=== PATIENT | female | born 1940 | race Caucasian/White ===

== ENCOUNTER 2017-03-21 20:23 | Inpatient (IN) ==
[2017-03-21] MEDS ORDERED: DUONEB (A & A) INH ONE (21:32)
--- NOTE | 2017-03-21 22:00 | PROVIDER DOCUMENTATION ---
This chart was entered by Chadwick Valero Scribe, acting as scribe for Carrillo Delgado MD. HPI-Respiratory General - General Chief Complaint: Shortness of Breath Stated Complaint: SOB, FEVER Time Seen by Provider: 03/21/17 20:30 Source: patient Allergies/Adverse Reactions: Patient Allergies Allergy/AdvReac Type Severity Reaction Status Date / Time meperidine HCl * Allergy Severe Respiratory Verified 03/21/17 20:47 [From Demerol] Distress cephalexin monohydrate * Allergy Mild RASH Verified 03/21/17 20:47 [From Keflex] Home Medications: Home Medication List Medication Instructions Recorded Confirmed Last Taken Type Calcium 600 mg PO DAILY 01/08/13 03/21/17 03/06/16 History Aspirin 81 mg PO DAILY 01/02/16 03/21/17 03/06/16 History Citalopram [Celexa] 40 mg PO QHS 01/02/16 03/21/17 03/05/16 History Atenolol [Tenormin] 50 mg PO QHS #0 tablet 01/08/16 03/21/17 03/05/16 Rx Hydroxyurea [Hydrea] 500 mg PO DAILY #0 capsule 01/08/16 03/21/17 03/06/16 Rx Acetaminophen [Tylenol] 650 mg PO Q4H PRN PRN #0 tablet 03/07/16 03/21/17 Unknown Rx Amlodipine [Norvasc] 5 mg PO BID #0 tablet 03/07/16 03/21/17 Unknown Rx Anagrelide [Agrylin] 1 mg PO DIRECTED #0 03/07/16 03/21/17 03/06/16 Rx Cyanocobalamin (Vitamin B-12) 1,000 mcg SL DAILY #1 tab.subl 03/07/16 03/21/17 Unknown Rx [Vitamin B-12] Ferrous Sulfate 325 mg PO DAILY #1 tablet 03/07/16 03/21/17 Unknown Rx Fluticasone/Salmet 250/50 INH 1 puff INH RTBID #0 inhaler 03/07/16 03/21/17 Unknown Rx [Advair 250/50 Diskus] Lansoprazole [Prevacid] 15 mg PO DAILY PRN PRN #1 03/07/16 03/21/17 Unknown Rx capsule. [place]-3 Fatty Acids/Fish Oil [Fish 1 each PO DAILY #1 capsule 03/07/16 03/21/17 Unknown Rx Oil 1,000 mg Softgel] Ondansetron Odt [Zofran 4 mg Odt] 4 mg PO Q6H PRN PRN #20 tablet 03/07/16 Unknown Rx Pravastatin Sodium 40 mg PO DIRECTED #1 tablet 03/07/16 03/21/17 Unknown Rx Ubidecarenone/Vitamin E Mixed 1 each PO DAILY #1 capsule 03/07/16 03/21/17 Unknown Rx [Coq10 Sg 100 Softgel] Cyclobenzaprine [Flexeril] 10 mg PO TID #20 tablet 04/03/16 03/21/17 Unknown Rx Hydrocodone/APAP 5 mg/325 mg 1 each PO Q6H PRN PRN #14 tablet 04/03/16 03/21/17 Unknown Rx [[place]-5] - History of Present Illness-Resp Nature of Presenting Problem: Pt is a 76 yowf who presents to ER with CC of shortness of breath that started 2 days ago. 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 Pt reports that she recently finished a round of doxycycline and solumedrol for contact dermitis (total of 2 rounds of abx). Pt does have an inhaler, but no other breathing txs. Hx of asthma/COPD and smokes 1 ppd, last cigarette was 2 days ago. Quality of Pain: reports: other (sob) Severity in ED: reports: mild Onset/Duration: reports: 2 days ago Timing: reports: still present, getting worse Cough Quality/Degree: reports: moderate, productive cough, sputum (green/yellow , thick) Associated Symptoms: reports: cough, fever/chills, shortness of breath, short of breath, wheezing. denies: chest pain/soreness, dizziness, earache, facial pain, flu-like symptoms, headache, heart racing, hurts to breathe, hyperventilating, lightheadedness, muscle/bodyaches, nasal congestion, nasal drainage, sinus pain, sore throat, sweaty Similar Symptoms Previously?: Yes Recently seen or treated by another doctor?: Yes Review of Systems - Adult - REVIEW OF SYSTEMS - ADULT Constitutional: reports: chills, fever. denies: fatique, night sweats, weight gain, weight loss Eyes: reports: no symptoms reported Ears, Nose, Mouth & Throat: reports: no symptoms reported Cardiovascular: denies: chest pain, irregular heart rate, palpitations, poor circulation, syncope Respiratory: reports: cough, excessive sputum production, shortness of breath, wheezing. denies: chronic cough, dyspnea on exertion, hemoptysis, pleurisy Gastrointestinal: denies: abdominal pain, hematemesis, constipation, diarrhea, nausea, vomiting Genitourinary: reports: no symptoms reported Musculoskeletal: reports: no symptoms reported Integumentary: reports: no symptoms reported Neurological: reports: no symptoms reported Psychiatric: reports: no symptoms reported Endocrine: reports: no symptoms reported Hematologic/Lymphatic: reports: no symptoms reported Allergic/Immunologic: reports: no symptoms reported All Other Systems: Reviewed and Negative Past History - Adult - PAST MEDICAL HISTORY-ADULT Review of Records: reports: Nursing Assessment Review, Medications Reviewed - IMMUNIZATION STATUS Childhood Immunizations: See Nurse Assessment Flu Vaccine: See Nurse Assessment Physical Exam-General - PHYSICAL EXAM-ADULT Initial Vital Signs Reviewed: Yes - CONSTITUTIONAL General Appearance: appears well, alert, no apparent distress, thin - EYES Eyes: PERRL/EOMI, pink conjunctivae - HEAD, EARS, NOSE, MOUTH & THROAT HENMT: normocephalic/atraumatic, moist mucous membranes, normal ENT inspection, TMs normal, pharynx normal. negative: pharyngeal erythema, tonsillar exudate, TM abnormal - NECK Neck: non-tender, full range of motion, supple, normal inspection. negative: C- spine tenderness, limited range of motion, lymphadenopathy - RESPIRATORY Respiratory: chest non-tender, no pleuratic chest pain, no respiratory distress , no accessory muscle use, wheezing (expiratory wheezing bilaterally), other ( Pt 93% on 2L O2 NC; Non-labored breathing, capable of talking in full sentences) . negative: lungs clear, normal breath sounds - CARDIOVASCULAR Cardiovascular: normal peripheral pulses, tachycardia. negative: regular rate, rhythm, bradycardia, irregularly irregular - GASTROINTESTINAL (ABDOMEN) Abdominal Exam: normal bowel sounds, non tender, soft, no organomegaly, no pulsatile mass. negative: guarding, rebound, tenderness - MUSCULOSKELETAL Back Exam: normal inspection, no CVA tenderness, no vertebral tenderness. negative: CVA tenderness, decreased range of motion, vertebral tenderness Extremity: normal range of motion, non-tender, normal gait, normal inspection, no pedal edema, no calf tenderness, normal capillary refill. negative: deformity, erythema, inflammation, swelling, tenderness - SKIN Integumentary: normal color, normal turgor, warm/dry. 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 negative: facial droop, focal weakness, motor weakness, sensory deficit - PSYCHIATRIC Psych/Mental Status: normal mood/affect, normal thought content, normal thought process, oriented x 3 Progress - PLAN OF CARE/RESULTS Progress/Plan/Lab Results: Vital Signs - 8 hr 03/21/17 20:26 03/21/17 22:00 Temperature 99.1 F Pulse Rate 121 H 118 H Respiratory Rate 20 16 Blood Pressure 186/52 O2 Sat by Pulse Oximetry 83 L Laboratory Results - last 24 hr 03/21/17 03/21/17 20:50 20:50 WBC 25.66 H RBC 2.97 L Hgb 9.8 L Hct 29.3 L MCV 98.7 MCH 33.0 H MCHC 33.4 RDW Std Deviation 19.3 H Plt Count 269 MPV 11.8 H Immature Gran % (Auto) 0.5 Neut % (Auto) 81.1 H Lymph % (Auto) 6.3 L [place] % (Auto) 12.1 H Eos % (Auto) 0.0 Baso % (Auto) 0.0 Immature Gran # (Auto) 0.13 H Neut # (Auto) 20.80 H Lymph # (Auto) 1.62 [place] # (Auto) 3.10 H Eos # (Auto) 0.00 Baso # (Auto) 0.01 Troponin T < 0.010 Orders Category Date Time Status Oxygen Therapy- ED Nursing DIRECTED Care 03/21/17 21:32 Active Saline Loc DIRECTED Care 03/21/17 21:32 Active CHEST-PORTABLE [RAD] Stat Exams 03/21/17 21:35 Taken ABG [RESP] Stat Lab 03/21/17 23:16 Ordered BLOOD CULTURE [BLDCUL] Stat Lab 03/21/17 20:50 Results BMP [BASIC METABOLIC PANEL] [CHEM] Stat Lab 03/21/17 20:50 Received BNP [PRO B-NATRIURETIC PEPTIDE] Stat Lab 03/21/17 20:50 Received CBC WITH ELECTRONIC DIFF [HEME] Stat Lab 03/21/17 20:50 Completed TROPONIN T Stat Lab 03/21/17 20:50 Completed Albuterol 2.5MG/Ipratrop 0.5MG [Duoneb (A & A)] Med 03/21/17 21:32 Discontinued 3 ml INH NOW ONE CefTRIAXONE 1 GM/NS [Rocephin 1 gm/Ns] Med 03/21/17 22:43 Discontinued 1 gm in 50 ml IV NOW Methylprednisolone Sod Succ [Solu-Medrol] Med 03/21/17 22:41 Discontinued 125 mg IV NOW ONE Aerosol Treatments Routine Oth 03/21/17 21:34 Completed Aerosol Treatments Stat Oth 03/21/17 21:32 Completed Aerosol Treatments Stat Oth 03/21/17 21:34 Completed Pulse Oximetry Stat Oth 03/21/17 21:32 Active EKG [EKG] Stat Ther 03/21/17 20:30 Ordered Result Diagrams: 03/21/17 20:50 - EKG 1 Time of EKG reading by physician:: 20:43 EKG Read and Signed by:: Carrillo Delgado EKG Interpretation (*Must complete 3 of following elements*): Abnormal ( Nonspecific ST and T wave abnormality; No STEMI) Rate: 97 Rhythm: Sinus rhythm with PAC - XRAY 1 XRAY: Bilateral XRAY Study: Chest Impression: See EMR Report XRAY Interpretation: interstitial markings, no cardiomegaly - Dr. Delgado - CONSULTS/PCP/HOSPITALIST Notification #1 *Consult/PCP/Hospitalist*: Dr. Jeong, hospitalist Time Discussed: 23:20 Consult Disposition: Admit Departure - Departure Time of Disposition Decision: 23:20 DIAGNOSIS: COPD exacerbation, Hypoxemia Pneumonia Qualifiers: Pneumonia type: due to unspecified organism Laterality: unspecified laterality Lung location: unspecified part of lung Qualified Code(s): J18.9 - Pneumonia, unspecified organism Disposition: HOME 01 Certified Medical Emergency: Emergent Condition: Stable Referrals and Follow-Ups: Alek Lopes MD [Primary Care Provider] - - Critical Care Note This patient required my direct & personal management of CC.: No This chart was documented by the indicated scribe, (Chadwick Valero Scribe) and accurately reflects the services I performed and decisions made by me, Carrillo Delgado MD, as attested by the provider's signature.
[2017-03-21 22:39] LABS: HEMATOCRIT 29.3 % (37.0-47.0); HEMOGLOBIN 9.8 g/dL (12.0-16.0); IMM GRAN# 0.13 X1000 (0.0-0.04); IMM GRAN% 0.5 % (0.0-0.5); LYMPH# 1.62 X1000 (1.2-3.4); LYMPH% 6.3 % (20.5-51.1); MANUAL DIFF NEEDED? NO; MCHC 33.4 g/dL (33-37); MCV 98.7 FL (81-99); MONO% 12.1 % (1.7-9.3); MPV 11.8 FL (7.4-10.4); NEUT% 81.1 % (42.2-75.2); PLT 269 X1000 (130-400); RBC 2.97 XMIL (4.2-5.4)
[2017-03-21] MEDS ORDERED: SOLU-MEDROL IV ONE (22:41)
[2017-03-21] MEDS ORDERED: ROCEPHIN 1 GM/NS 1 GM/50 ML IVPB IV ONE (22:43)
[2017-03-21 23:23] LABS: CALCIUM 8.5 mg/dL (8.8-10.2); POTASSIUM 3.7 mmol/L (3.5-5.1)
[2017-03-21 23:40] LABS: ALLEN TEST YES; BLOOD TYPE ARTERIAL; DRAW SITE R RADIAL; METHB 0.6 % (0.0-1.5); MODALITY CANNULA; O2(CT) 11.9 mL/dL (15.0-23.0); PCO2(98.6) 42 mmHg (35-45); PO2(98.6) 59 mmHg (60-100); SAMPLE BLOOD; SAO2 94.8 % (95.0-100.0); THB 9.1 g/dL (11.5-17.4)
--- NOTE | 2017-03-22 01:29 | HISTORY AND PHYSICAL ---
CHIEF COMPLAINT: Shortness of breath x3 days. HISTORY OF PRESENTING ILLNESS: A 76-year-old female, with a history of COPD, hypertension, hyperlipidemia and essential thrombocytosis, who had presented to the emergency department with 3 days history of worsening shortness of breath and cough. She states that she was having some productive sputum, and she was having more difficulty breathing, and subsequently she had come to the emergency department. At the ER, she was somewhat dyspneic, and due to her presenting symptoms, it was thought that she would need hospitalization for further management. At the time of my examination, she denied any headaches, vision changes, nausea, vomiting, diarrhea, chest pain, hemoptysis, or any weight changes, but complained of shortness of breath and coughing. PAST MEDICAL HISTORY: Includes COPD, hypertension, hyperlipidemia, essential thrombocytosis. PAST SURGICAL HISTORY: Stents in bilateral lower extremities for prophylaxis disease, hysterectomy, cholecystectomy, appendectomy. ALLERGIES: Keflex and meperidine. CURRENT MEDICATIONS: As listed in MAR. SOCIAL HISTORY: A 53-[id number]-rofw history of smoking. Denies any history of alcohol or illicit drug use. FAMILY HISTORY: No history of coronary disease. REVIEW OF SYSTEMS: [employer] point systems is as in HPI. Other systems negative. PHYSICAL EXAMINATION: GENERAL: Cooperative, friendly female. She is resting more comfortably now. VITAL SIGNS: Temperature 99.1, pulse 121, respirations 20, blood pressure 186/52, saturating 83% on room air. HEENT: Atraumatic, normocephalic. Extraocular movements intact. PERRLA. NECK: No masses. CHEST: Has rhonchi. CARDIOVASCULAR: Regular rate and rhythm. ABDOMEN: Soft. Positive bowel sounds. EXTREMITIES: No edema. NEURO: She is awake, alert, oriented x3. : No bladder distention. SKIN: Warm. LABORATORIES AND STUDIES: WBCs 25.66, hemoglobin 9.8, hematocrit 29.3, platelets 269,000. Sodium 141, potassium 3.7, chloride 101, CO2 of 23, BUN is 19, creatinine is 1.0, glucose is 97. ASSESSMENT: A 76-year-old female with a history of COPD, hypertension, hyperlipidemia, and essential thrombocytosis, who presented to emergency department with 3 days history of worsening cough and shortness of breath. She apparently failed outpatient treatment that was given by her primary care provider. She was somewhat hypoxemic, and we put her on supplemental oxygen, and patient will need hospitalization for further management. 1. Suspected pneumonia. 2. COPD disease exacerbation. 3. Possible CHF exacerbation, unspecified. 4. Hypertension. 5. History of essential thrombocytosis. PLAN: 1. We will admit patient to medical floor with telemetry. 2. We will check blood cultures. Start patient on IV antibiotics. 3. We will continue with DuoNebs and Solu-Medrol. 4. Continue gentle diuresis with Lasix and schedule an echocardiogram. 5. Monitor blood pressure closely and resume antihypertensive agent. 6. We will restart her home medications. 7. Put patient on DVT prophylaxis with SCDs. 8. We will continue to follow and reassess. cc: Sushant Jeong MD
[2017-03-22] MEDS ORDERED: LASIX IV SCH (03:27)
[2017-03-22] MEDS ORDERED: PREVACID SOLUTAB PO PRN (03:27)
[2017-03-22] MEDS ORDERED: NORCO-5 PO PRN (03:27)
[2017-03-22] MEDS ORDERED: LASIX ONE (03:34)
[2017-03-22] MEDS: MUCINEX PO SCH ×2 (03:41→16:15)
[2017-03-22] MEDS: LEVAQUIN 750 MG/D5W 750 MG/150 ML IVPB IV SCH (03:43)
[2017-03-22] MEDS: NORVASC PO SCH ×3 (04:05→20:40)
[2017-03-22] MEDS: DUONEB (A & A) INH SCH ×6 (04:14→23:11)
[2017-03-22] MEDS ORDERED: APRESOLINE IV PRN (05:27)
--- NOTE | 2017-03-22 06:13 | Diag Imaging Result Doc PS360 ---
EXAM: CHEST-PORTABLE HISTORY: sob TECHNIQUE: AP single view COMPARISON: 08/16/2013 FINDINGS: The lungs are well expanded. There is a small left pleural effusion. Mild vascular distention. The heart is not enlarged. No consolidation. IMPRESSION: Mild pulmonary edema with small left pleural effusion Electronically signed by Davon Scanlon 03/22/2017 6:10 AM
[2017-03-22] MEDS ORDERED: FLEXERIL PO SCH (09:00)
[2017-03-22] MEDS: HYDREA PO SCH (09:01)
[2017-03-22] MEDS: CALTRATE 600 PO SCH ×2 (09:01→12:15)
[2017-03-22] MEDS: FISH OIL CONCENTRATE PO SCH (09:01)
[2017-03-22] MEDS: VITAMIN B-12 PO SCH (09:01)
[2017-03-22] MEDS: FERROUS SULFATE PO SCH ×2 (09:05→12:16)
[2017-03-22] MEDS: ASPIRIN PO SCH (09:06)
[2017-03-22] MEDS: COENZYME Q10 PO SCH (09:39)
[2017-03-22] MEDS: PATIENT'S OWN MED PO SCH (12:15)
--- NOTE | 2017-03-22 13:36 | PROGRESS NOTE ---
DATE: 03/22/2017 SUBJECTIVE: The patient was admitted overnight with 3 days progressive shortness of breath, cough, congestion, and wheezing. Upon arrival to the emergency department, patient was noted to have hypoxia. Chest x-ray suggested the possibility of mild pulmonary edema with small left pleural effusion. Patient was given an IV dose of Lasix therapy. In addition, Solu-Medrol, bronchodilators, and antibiotic therapy was initiated. The patient was admitted to the hospital. Over the course of the last 12 hours, patient's overall condition has improved considerably. She continues to have some shortness of breath, although this is significantly decreased from yesterday. Her wheezing has decreased as well. Energy level remains low, but acceptable. She denies fevers, chills, nausea, vomiting, or chest discomfort at present time. OBJECTIVE: Vital signs: T-max 99.1, heart rate 71-121, respirations 16-26, blood pressure 158- 191 over 45-77. General: In no acute distress. Cardiovascular: Regular rate and rhythm. No significant murmurs, rubs, or gallops. Pulmonary: Minimal wheezing. Adequate air movement. Abdomen: Soft, nontender, nondistended. Positive bowel sounds. Extremities: Moves all extremities well. No significant clubbing, cyanosis, or edema. Dermatologic: Evaluation reveals no evidence of rash. LABORATORY DATA: None. ASSESSMENT AND PLAN: 1. Outpatient failure of treatment of presumed pneumonia-upon admission, patient's symptoms are consistent with an underlying pneumonia. Patient was placed on broad-spectrum antibiotics including levofloxacin and Rocephin therapy. We will check a sputum culture. We will follow blood cultures. We will treat patient's underlying COPD as described below. 2. Acute exacerbation of chronic obstructive pulmonary disease-patient received Solu-Medrol while in the emergency department along with antibiotics and bronchodilators. We will continue Solu- Medrol and bronchodilators. We will continue antibiotics as described above. Once stabilized, we will plan to initiate steroid taper. 3. Possible volume overload-patient's chest x-ray was consistent with mild volume overload state. Patient was treated with Lasix therapy successfully. Echocardiogram has been performed this morning. We will follow this up and determine if further intervention is warranted. 4. Hypertension-we will continue patient's home medications and adjust as necessary. 5. Leukocytosis-I suspect patient's leukocytosis is secondary to recent steroid use. We will, however, need to monitor this closely in the setting of underlying infection. 6. Essential thrombocytosis-we will continue patient's home medications. 7. Disposition-at this point, patient continues to require mcc care in a hospital setting. Patient will be discharged home once appropriate. cc: Alek Lopes MD
[2017-03-22] MEDS: SOLU-MEDROL IV SCH (15:17)
[2017-03-22] MEDS: ADVAIR 250/50 DISKUS INH SCH (19:19)
[2017-03-22] MEDS ORDERED: FLEXERIL PO PRN (20:04)
[2017-03-22] MEDS ORDERED: NORCO-7.5 PO PRN (20:04)
[2017-03-22] MEDS: CELEXA PO SCH (20:40)
[2017-03-22] MEDS: TENORMIN PO SCH (20:40)
[2017-03-23] MEDS: SOLU-MEDROL IV SCH ×2 (00:19→09:43)
[2017-03-23] MEDS: PATIENT'S OWN MED PO SCH ×3 (00:20→20:03)
[2017-03-23] MEDS: DUONEB (A & A) INH SCH ×6 (03:29→23:01)
[2017-03-23] MEDS: MUCINEX PO SCH ×2 (03:55→15:01)
[2017-03-23 06:40] LABS: HEMOGLOBIN 9.4 g/dL (12.0-16.0); IMM GRAN# 0.11 X1000 (0.0-0.04); IMM GRAN% 0.4 % (0.0-0.5); LYMPH# 0.96 X1000 (1.2-3.4); LYMPH% 3.7 % (20.5-51.1); MANUAL DIFF NEEDED? YES; MCH 32.6 PG (27-31); MCHC 33.6 g/dL (33-37); MCV 97.2 FL (81-99); MONO% 6.5 % (1.7-9.3); MPV 11.1 FL (7.4-10.4); NEUT% 89.4 % (42.2-75.2); PLT 243 X1000 (130-400); RBC 2.88 XMIL (4.2-5.4)
[2017-03-23 06:45] LABS: ALBUMIN 3.2 g/dL (3.5-5.0); CALCIUM 8.2 mg/dL (8.8-10.2); POTASSIUM 3.6 mmol/L (3.5-5.1); TOTAL BILIRUBIN 0.2 mg/dL (0.20-1.00); TOTAL PROTEIN 6.1 g/dL (6.3-8.3)
[2017-03-23 07:15] LABS: LYMPHS 4 % (21-51); MONO 2 % (1-9)
[2017-03-23] MEDS: ADVAIR 250/50 DISKUS INH SCH ×2 (07:38→19:25)
[2017-03-23] MEDS: FISH OIL CONCENTRATE PO SCH (09:35)
[2017-03-23] MEDS: LEVAQUIN 750 MG/D5W 750 MG/150 ML IVPB IV SCH (09:35)
[2017-03-23] MEDS: HYDREA PO SCH (09:35)
[2017-03-23] MEDS: ASPIRIN PO SCH (09:36)
[2017-03-23] MEDS: CALTRATE 600 PO SCH (09:36)
[2017-03-23] MEDS: FERROUS SULFATE PO SCH (09:36)
[2017-03-23] MEDS: COENZYME Q10 PO SCH (09:36)
[2017-03-23] MEDS: NORVASC PO SCH ×2 (09:37→20:01)
[2017-03-23] MEDS: VITAMIN B-12 PO SCH (09:37)
[2017-03-23] MEDS: LOVENOX SUBQ SCH (09:42)
--- NOTE | 2017-03-23 10:17 | ECHO REPORT ---
ORDER DATE: 03/22/2017 MEASUREMENTS: 1. Left ventricular end-diastolic diameter 4. 2. Systolic diameter 2.9. 3. Septal thickness 1.2. 4. Posterior wall thickness 1. 5. Left atrium 4.1. 6. Aortic root 3.2 SUMMARY: 1. Fair quality study with somewhat limited apical acoustic window quality. 2. Aortic valve is trileaflet and opens normally on 2-dimensional images. Mitral, tricuspid and pulmonic valves are without structural abnormality with mild mitral regurgitation and mild tricuspid regurgitation. Aortic root is normal in size. The estimated systolic PA pressure by Doppler is 55 mmHg. 3. Normal left ventricular dimensions demonstrated. Estimated left ejection fraction appears to be approximately 65%. No regional wall motion abnormality is evident. Doppler suggests grade 1 left ventricular diastolic function. Left atrium is borderline enlarged. Right atrium and right ventricle are normal size with grossly preserved right ventricular systolic function. 4. No pericardial effusion. 5. Appearance of inferior vena cava suggests normal central venous pressure. CONCLUSIONS: 1. Mild mitral regurgitation. 2. Mild tricuspid regurgitation with moderate pulmonary hypertension by Doppler. 3. Estimated left ejection fraction 65%. 4. Grade 1 left ventricular diastolic dysfunction suggested. 5. Borderline left atrial enlargement. cc: MD Sushant Benitez MD Scott A. Matthews, MD
--- NOTE | 2017-03-23 10:35 | PROGRESS NOTE ---
DATE: 03/23/2017 SUBJECTIVE: Overall, patient's condition continues to improve. She notes decreasing shortness of breath and wheezing. She does continue to have some fatigue. Her p.o. intake thus far has been adequate. She denies fevers, chills, nausea, vomiting, palpitations, or chest discomfort. Overnight, the patient did complain of increased muscle cramping, treated with Flexeril therapy. OBJECTIVE: Vital Signs: T-max 98.3 degrees, heart rate 75-95, respirations 18-20, blood pressure 130-163/39-57. General: Well nourished, well developed, no acute distress. Cardiovascular: Regular rate and rhythm. No significant murmurs, rubs, or gallops. Pulmonary: Occasional wheeze and rhonchi. Adequate air movement. Abdomen: Soft, nontender, nondistended. Positive bowel sounds. Extremities: Moves all extremities well. No significant clubbing, cyanosis, or edema. Dermatologic: Evaluation reveals no evidence of rash. Laboratory Data: White blood cell count 26.22, hemoglobin 9.4, hematocrit 28, platelet count is 243,000. Sodium 140, potassium 3.6, chloride 98, bicarb 25, BUN 46, creatinine 1.6, glucose 118, calcium 8.2. Total bilirubin 0.2, total protein 6.1, albumin 3.2, alkaline phosphatase 101, AST 28, ALT 92. ASSESSMENT AND PLAN: 1. Outpatient failure of treatment of presumed pneumonia-the patient is being treated with broad- spectrum antibiotics including levofloxacin. Clinically, she is improving. We will continue treatment of her underlying chronic obstructive pulmonary disease as described below. 2. Acute exacerbation of chronic obstructive pulmonary disease-patient is achieving improvement with antibiotics, bronchodilators, and Solu-Medrol. We will decrease Solu-Medrol to 40 mg every 12 hours. We will plan to initiate an oral steroid taper in the morning should her condition continued to improve. 3. Possible volume overload-this was noted per chest x-ray. Echocardiogram results are pending. She was treated with 1 dose of Lasix therapy. At the present time, she appears to be euvolemic. We will follow this. 4. Lower extremity muscle cramping-this likely is secondary to overdiuresis. We will remain aware. Further diuretics will be held at the present time. 5. Hypertension-we will continue patient on her home medications as her blood pressure is controlled. 6. Leukocytosis-this likely is secondary to steroid use. We will remain aware. 7. Essential thrombocytosis-we will continue patient on her home medications. 8. Disposition-at this point, patient continues to require long-term care in a hospital setting. We will plan discharge home once appropriate. cc: Alek Lopes MD
[2017-03-23] MEDS: CELEXA PO SCH (20:01)
[2017-03-23] MEDS: TENORMIN PO SCH (20:01)
[2017-03-23] MEDS ORDERED: PRAVACHOL PO SCH (21:00)
[2017-03-23] MEDS ORDERED: SOLU-MEDROL IV SCH (21:30)
[2017-03-24] MEDS: DUONEB (A & A) INH SCH ×4 (03:34→15:50)
[2017-03-24] MEDS: MUCINEX PO SCH ×2 (05:17→16:42)
[2017-03-24 06:24] LABS: HEMATOCRIT 27.1 % (37.0-47.0); HEMOGLOBIN 9.1 g/dL (12.0-16.0); IMM GRAN# 0.08 X1000 (0.0-0.04); IMM GRAN% 0.4 % (0.0-0.5); LYMPH# 0.68 X1000 (1.2-3.4); LYMPH% 3.2 % (20.5-51.1); MANUAL DIFF NEEDED? YES; MCHC 33.6 g/dL (33-37); MCV 98.2 FL (81-99); MONO# 0.84 X1000 (0.11-0.59); MONO% 3.9 % (1.7-9.3); MPV 11.8 FL (7.4-10.4); NEUT% 92.5 % (42.2-75.2); PLT 214 X1000 (130-400); RBC 2.76 XMIL (4.2-5.4)
[2017-03-24 06:34] LABS: LYMPHS 10 % (21-51)
[2017-03-24 06:59] LABS: ALBUMIN 3.2 g/dL (3.5-5.0); CALCIUM 7.9 mg/dL (8.8-10.2); POTASSIUM 4.1 mmol/L (3.5-5.1); TOTAL BILIRUBIN 0.2 mg/dL (0.20-1.00); TOTAL PROTEIN 6.1 g/dL (6.3-8.3)
[2017-03-24] MEDS: ADVAIR 250/50 DISKUS INH SCH (08:06)
[2017-03-24] MEDS: VITAMIN B-12 PO SCH (08:38)
[2017-03-24] MEDS: LEVAQUIN 750 MG/D5W 750 MG/150 ML IVPB IV SCH (08:38)
[2017-03-24] MEDS: COENZYME Q10 PO SCH (08:39)
[2017-03-24] MEDS: FISH OIL CONCENTRATE PO SCH (08:40)
[2017-03-24] MEDS: NORVASC PO SCH (08:40)
[2017-03-24] MEDS: CALTRATE 600 PO SCH (08:40)
[2017-03-24] MEDS: LOVENOX SUBQ SCH (08:40)
[2017-03-24] MEDS: ASPIRIN PO SCH (08:40)
[2017-03-24] MEDS: FERROUS SULFATE PO SCH (08:40)
[2017-03-24] MEDS ORDERED: MEDROL DOSEPAK PO SCH (08:45)
[2017-03-24] MEDS: HYDREA PO SCH (08:45)
[2017-03-24] MEDS: PATIENT'S OWN MED PO SCH (10:00)
[2017-03-24] MEDS: MEDROL PO SCH ×3 (10:20→16:04)
[2017-03-24] MEDS ORDERED: MUCINEX ONE (13:00)
[2017-03-24 15:24] VITALS: BP 164/48
--- NOTE | 2017-03-24 22:48 | DISCHARGE SUMMARY ---
ADMISSION DATE: 03/21/2017 DISCHARGE DATE: 03/24/2017 ADMISSION DIAGNOSIS: Shortness of breath. DISCHARGE DIAGNOSES: 1. Outpatient failure of treatment of presumed pneumonia. 2. Acute exacerbation of chronic obstructive pulmonary disease. 3. Mild volume overload, resolved. 4. Lower extremity muscle cramping/myalgias. 5. Hypertension, present on arrival. 6. Leukocytosis. 7. 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 CONSULTATIONS: None. PROCEDURES: 1. A chest x-ray performed on 03/21/2017 which revealed mild pulmonary edema with a small left pleural effusion. 2. Echocardiogram was performed on 03/22/2017 which revealed mild mitral regurgitation. Mild tricuspid regurgitation with moderate pulmonary hypertension. Estimated left ventricular fraction of 65%. Grade 1 left ventricular diastolic dysfunction. Borderline left atrial enlargement. HISTORY AND PHYSICAL EXAMINATION: See admit note. PHYSICAL EXAMINATION PRIOR TO DISCHARGE: Vital Signs: Temperature 98.3 degrees, heart rate 87, respirations 18, blood pressure is 164/48. General: Well nourished, well developed, in no acute distress. Cardiovascular: Regular rate and rhythm. No significant murmurs, rubs, or gallops. Pulmonary: Prolonged expiratory phase. Adequate air movement. Abdomen: Soft, nontender, nondistended. Positive bowel sounds. Extremities: Moves all extremities well. No significant clubbing, cyanosis, or edema. Dermatologic: Evaluation reveals no evidence of rash. LABORATORY DATA: Prior to discharge. White blood cell count 21.51, hemoglobin 9.1, hematocrit 27.1, platelet count 214,000. Sodium 138, potassium 4.1, chloride 99, bicarb 24, BUN 57, creatinine 1.6, glucose 146, calcium 7.9, total bilirubin 0.20, total protein 6.1, albumin 3.2, alkaline phosphatase 103, AST 22, ALT 72. HOSPITAL COURSE: Patient was admitted as per history and physical examination. Hospital course per condition is as follows. 1. Outpatient failure of treatment of a presumed pneumonia-upon admission, patient was noted to have considerable respiratory compromise. She had failed outpatient antibiotic therapy. The patient was placed on levofloxacin therapy. Acute exacerbation of chronic obstructive pulmonary disease was treated as described below. While hospitalized, the patient's condition rapidly improved. She will complete 7 additional days of levofloxacin therapy. We will follow this closely as an outpatient. 2. Acute exacerbation of chronic obstructive pulmonary disease-patient has long-standing COPD. The patient was treated with aggressive IV Solu-Medrol and bronchodilators. At time of discharge, patient had been transitioned to oral methylprednisolone. Patient will be discharged home on a Medrol Dosepak and levofloxacin therapy. We will continue DuoNeb every 4 hours while awake. 3. Possible volume overload-upon admission patient was noted to have possible volume overload per chest x-ray. Patient was treated with IV Lasix while hospitalized. The patient did achieve improvement in volume status. At this point, no evidence of significant failure was identified per echocardiogram. 4. Acute kidney failure-patient was noted to have an increasing creatinine of 1.6 after Lasix therapy. The patient's Lasix was held thereafter. We will continue to follow this as an outpatient as well. I suspect with hydration, her renal function will normalize. 5. Lower extremity muscle cramping-this occurred after Lasix therapy. This likely was dehydration and potassium related which she was treated supportively. 6. Hypertension-patient was continued on her home medications. 7. Leukocytosis-this likely was secondary to a combination of acute illness and steroid therapy. This, too, will be followed as an outpatient. 8. Thrombocytosis-patient was continued on home medications while hospitalized. DISCHARGE CONDITION: Good. DISPOSITION: Discharge to home. MEDICATIONS: 1. Flexeril 10 mg 1/2 to 1 tablet twice daily as needed. 2. Mucinex 600 mg twice daily. 3. Levofloxacin 500 mg daily. 4. Medrol dose pack as directed. 5. Calcium carbonate 600 mg daily. 6. Albuterol and Atrovent nebulizer treatments every 4 hours as needed. 7. Aspirin 81 mg daily. 8. Celexa 40 mg at bedtime. 9. Atenolol 50 mg at bedtime. 10. Hydrea 500 mg daily. 11. Iron sulfate 325 mg daily. 12. Acetaminophen 650 mg every 4 hours as needed. 13. Amlodipine 5 mg twice daily. 14. Cymbalta 1000 mg sublingual daily. 15. Advair 250/50 one puff twice daily. 16. [place]-3 fish oil 1000 mg daily. 17. Pravastatin 40 mg at bedtime on Thursday, Thursday, and Thursday. 18. Co-Q10 100 mg daily. 19. Lansoprazole 15 mg daily as needed. 20. Anagrelide 2 mg in the morning and 1 mg in the evening. FOLLOWUP: Patient to follow with me in approximately 1-2 weeks. cc: lAek Lopes MD
[2017-03-25] MEDS ORDERED: MEDROL PO SCH ×2 (08:00→12:00)
[2017-03-26] MEDS ORDERED: MEDROL PO SCH (08:00)
[2017-03-27] MEDS ORDERED: MEDROL PO SCH (08:00)
[2017-03-28] MEDS ORDERED: MEDROL PO SCH (08:00)
[2017-03-29] MEDS ORDERED: MEDROL PO SCH (08:00)
== END 2017-03-24 20:12 | disposition home or self-care (01) ==
LOC: ED 20:23 → 3N 03-22 01:17 → SUATTDRO 03-22 01:17 → 3N 03-22 03:05
PROVIDERS: ADMIT Internal Medicine; ATTEND Internal Medicine

== ENCOUNTER 2018-12-17 17:12 | Inpatient (IN) ==
[2018-12-17] MEDS ORDERED: TYLENOL PO PRN ×2 (17:59)
[2018-12-17] MEDS ORDERED: NS NEB INH SCH (17:59)
[2018-12-17] MEDS ORDERED: ZOFRAN IV PRN (17:59)
[2018-12-17] MEDS ORDERED: PRILOSEC PO ONE (17:59)
[2018-12-17 18:48] LABS: MCH 32.5 PG (27-31); MCV 108.3 FL (81-99); PLT 213 X1000 (130-400); RBC 2.77 XMIL (4.2-5.4); RDW 15.3 % (11.5-14.5); WBC 39.53 X1000 (4.8-10.8)
[2018-12-17 18:58] LABS: AGAP 10; ALB/GLOB RATIO 1.2; ALBUMIN 3.6 g/dL (3.5-5.0); ALKALINE PHOSPHATASE 87 U/L (32-104); BUN 37 mg/dL (8-22); CALCIUM 8.8 mg/dL (8.8-10.2); CHLORIDE 103 mmol/L (98-107); COSMO 282; CREATININE 1.6 mg/dL (0.5-0.9); ESTIMATED GFR 31; GLUCOSE 88 mg/dL (70-104); GOT 19 U/L (10-30); GPT 14 U/L (10-36); SODIUM 137 mmol/L (136-145); TCO2 24 mmol/L (25-35); TOTAL BILIRUBIN < 0.15 mg/dL (0.20-1.00); TOTAL PROTEIN 6.5 g/dL (6.3-8.3)
--- NOTE | 2018-12-17 19:15 | Diag Imaging Result Doc PS360 ---
EXAM: CHEST-2 VIEWS HISTORY: shortness of breath TECHNIQUE: Chest two views COMPARISON: 07/04/2018 FINDINGS: The lungs are hyperexpanded. The heart is not enlarged. The vessels are small. There are no infiltrates. No pleural effusions. IMPRESSION: Emphysema Electronically signed by Davon Scanlon 12/17/2018 7:13 PM
[2018-12-17 19:32] LABS: BANDS 6 % (0-1); EOS 1 % (1-10); LYMPHS 19 % (21-51); SEGS 64 % (42-75)
[2018-12-17 19:33] LABS: LARGE PLATELETS OCCASIONAL
[2018-12-17] MEDS: ADVAIR 250/50 DISKUS INH SCH (19:38)
[2018-12-17] MEDS: XOPENEX NEB INH SCH ×2 (19:38→23:29)
[2018-12-17] MEDS: ROCEPHIN 1 GM in NS 50 ML IV SCH (20:49)
[2018-12-17] MEDS: TENORMIN PO SCH (20:50)
[2018-12-17] MEDS: NORVASC PO SCH (20:50)
[2018-12-17] MEDS: LIPITOR PO SCH (20:50)
[2018-12-17] MEDS: AGRYLIN PO SCH (20:50)
[2018-12-17] MEDS: SOLU-MEDROL IV SCH (20:50)
[2018-12-17] MEDS: COZAAR PO SCH (20:51)
[2018-12-17] MEDS ORDERED: NS 1,000 ML IV SCH (21:45)
[2018-12-17] MEDS: DOXYCYCLINE 100 MG in NS 250 ML IV SCH (22:01)
--- NOTE | 2018-12-18 00:13 | HISTORY AND PHYSICAL ---
PRIMARY CARE PHYSICIAN: Dr. Alek Lopes. CHIEF COMPLAINT: Leukocytosis, cough, congestion, wheezing, and weakness. HISTORY OF PRESENT ILLNESS: A 77-year-old white female with a complicated past medical history presents for evaluation of above-mentioned symptoms. Pertinent history of present illness began in early October. At that time, she developed a significant cough, congestion, and wheezing. Since that time, patient has been treated on 3 separate occasions as an outpatient with antibiotic intervention, steroids, and bronchodilators. Most recent symptoms began approximately last week. At that time, she developed a progressive sore throat, nausea, and abdominal pain. She continued to have shortness of breath, weakness, and wheezing. Her cough with intermittent, and largely nonproductive. She denied significant sick contacts. The patient has a longstanding history of thrombocytosis. She is followed routinely by Dr. Ortiz. Upon evaluation today, white blood cell count has increased to approximately 45,000. She was instructed to follow up with me for further evaluation and management. Upon her arrival at my office, patient was noted to have profound weakness. She had mild to moderate shortness of breath. The patient will be admitted to the hospital for full evaluation and management of leukocytosis in the setting of a COPD exacerbation. PAST MEDICAL HISTORY: 1. Anemia. 2. Carotid artery disease. 3. Cholelithiasis. 4. Chronic kidney disease. 5. Chronic obstructive pulmonary disease. 6. Depression. 7. Diabetes. 8. Reflux disease. 9. Hypertension. 10. Hypertriglyceridemia. 11. Essential thrombocytosis. 12. Gout. 13. Hiatal hernia. 14. Hyperlipidemia. 15. Chronic hypoxemia treated with nocturnal oxygen. 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 17. Menopause. 18. Intermittent muscle spasms. 19. Chronic tobacco use 20. Osteoarthritis. 21. History of peripheral artery disease. 22. History of a pulmonary nodule. 23. Intermittent dizziness. 24. Urinary incontinence. 25. Uterovaginal prolapse status post BOSSMAN/BSO in August 2010. CURRENT MEDICATIONS: 1. Advair 500/50 twice daily. 2. Anagrelide 1 mg 2 capsules daily. 3. Aspirin 81 mg daily. 4. Atenolol 50 mg at bedtime. 5. Atorvastatin 10 mg at bedtime. 6. Buspirone 5 mg 3 times daily as needed. 7. Colcrys 0.6 mg as needed. 8. Hydrea 500 mg on Thursday, Thursday, and Thursday. 9. Ipratropium bromide/albuterol 4 times daily. 10. Losartan 50 mg daily. 11. Norvasc 5 mg twice daily. 12. Prevacid 15 mg daily as needed. 13. ProAir HFA as needed. 14. Phenergan as needed. 15. Wellbutrin XL 300 mg daily. ALLERGIES: Patient states she is allergic to Crestor, Demerol, fenofibrate, Keflex, Klonopin, pravastatin and prednisone. SOCIAL HISTORY: The patient began smoking in her early 30s. She has averaged 1 pack per day since that time. She rarely uses alcohol. She denies illicit drug use. 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. She enjoys shopping and reading. She exercises intermittently. FAMILY HISTORY: Patient's father passed at age 66 secondary to complications of prostate cancer and pulmonary embolism. Patient's mother passed at age 62 secondary to complications of an acute myocardial infarction. She had a history of diabetes, hypertension, and hyperlipidemia. REVIEW OF SYSTEMS: A 12 point review of systems was performed. Pertinent positives and negatives noted in history present illness. PHYSICAL EXAMINATION: VITAL SIGNS: Temperature 98.1 degrees, heart rate 81, respirations 18, blood pressure is 155/50. GENERAL: Chronically ill appearing, no acute distress. HEENT: Normocephalic, atraumatic. Pupils equal, round, react to light. Extraocular muscles intact. Sclerae anicteric. Gentry conjunctivae. Oral and nasopharynx clear without exudate. NECK: Supple. No lymphadenopathy. No thyromegaly. No bruits auscultated. CARDIOVASCULAR: Regular rate and rhythm. No significant murmurs, rubs, or gallops. PULMONARY: Distant breath sounds. Compromised air movement. ABDOMEN: Soft, nontender, nondistended. Positive bowel sounds. EXTREMITIES: Moves all extremities well. No significant clubbing, cyanosis, or edema. NEUROLOGIC: Cranial nerves 2-12 grossly intact. Motor and sensory grossly intact. PSYCHOLOGIC: Examination is appropriate. LABORATORY DATA: White blood cell count 39.53, hemoglobin 9.0, hematocrit 30.0, platelet count 213,000. Sodium 137, potassium 5.0, chloride 103, bicarb 24, BUN 37, creatinine 1.6, glucose 88, calcium 8.8, total bilirubin less than 0.15, total protein 6.5, albumin 3.6, alkaline phosphatase 87, AST 19, ALT 14. Chest x-ray reveals emphysema. ASSESSMENT AND PLAN: A 77-year-old white female with a complicated past medical history as noted presents for evaluation of recurrent chronic obstructive pulmonary disease and significant leukocytosis. Patient will be admitted to the hospital for full evaluation and management of this condition. 1. Admit to General Medicine. 2. Acute exacerbation of chronic obstructive pulmonary disease-as described above, patient has been treated on 3 separate occasions within the last 6 to 8 weeks. The patient has achieved transient improvement. Patient currently complains of cough, congestion, shortness of breath. We will admit patient for IV antibiotics, Solu-Medrol, and bronchodilators. We will encourage incentive spirometry and aspiration precautions. 3. Leukocytosis-this likely is a consequence of patient's pulmonary condition. We will check blood cultures and sputum cultures. We will treat with antibiotic intervention including Rocephin and doxycycline therapy. 4. Acute on chronic kidney disease-patient's creatinine today is 1.6. Baseline creatinine is between 1.2 and 1.4. We will treat patient with hydration. We will follow this. 5. Hypoxemia-we will treat patient with oxygen per protocol. 6. Depression-will continue patient on Wellbutrin therapy. 7. Pharyngitis-we will check a rapid strep. We will remain aware this may be reflux associated. We will start patient on routine omeprazole therapy. We will remain aware that Maren esophagitis could present in a similar way. 8. Reflux disease-we will start patient on omeprazole therapy. 9. Hypertension-we will continue patient's home medications. 10. Thrombocytosis-we will continue patient on Hydrea and anagrelide therapy. 11. Immunoglobulin deficiency-this certainly could be playing a role in patient's acute infection. We will remain aware. 12. Fluid, electrolytes, nutrition-we will monitor electrolytes. Normal saline at 75 mL an hour. Regular diet. 13. Prophylaxis. Patient will be placed on subcu Lovenox. cc: Alek Lopes MD
[2018-12-18] MEDS: XOPENEX NEB INH SCH ×6 (03:57→23:14)
[2018-12-18] MEDS: SOLU-MEDROL IV SCH ×3 (06:23→20:50)
[2018-12-18] MEDS: PRILOSEC PO SCH (06:23)
[2018-12-18 07:42] LABS: BASO% 0.3 % (0.0-0.8); EOS# 0.07 X1000 (0.0-0.7); EOS% 0.2 % (0.0-10.0); HEMATOCRIT 29.3 % (37.0-47.0); HEMOGLOBIN 8.8 g/dL (12.0-16.0); IMM GRAN# 4.68 X1000 (0.0-0.04); IMM GRAN% 12.8 % (0.0-0.5); LYMPH# 3.89 X1000 (1.2-3.4); LYMPH% 10.6 % (20.5-51.1); MCH 32.5 PG (27-31); MCV 108.1 FL (81-99); MONO# 0.75 X1000 (0.11-0.59); MONO% 2.1 % (1.7-9.3); MPV 11.6 FL (7.4-10.4); NEUT# 27.08 X1000 (1.4-6.5); PLT 201 X1000 (130-400); RBC 2.71 XMIL (4.2-5.4); RDW 15.2 % (11.5-14.5); WBC 36.57 X1000 (4.8-10.8)
[2018-12-18] MEDS: ATROVENT NEB INH PRN ×3 (08:01→15:45)
[2018-12-18] MEDS: ADVAIR 250/50 DISKUS INH SCH ×2 (08:01→19:27)
[2018-12-18 08:13] LABS: CALCIUM 8.4 mg/dL (8.8-10.2); CREATININE 1.5 mg/dL (0.5-0.9); POTASSIUM 5.8 mmol/L (3.5-5.1)
[2018-12-18 08:26] LABS: ANISOCYTOSIS OCCASIONAL; BANDS 4 % (0-1); EOS 1 % (1-10); HYPOCHROM OCCASIONAL; LYMPHS 9 % (21-51); MONO 2 % (1-9); SEGS 82 % (42-75)
[2018-12-18] MEDS: DOXYCYCLINE 100 MG in NS 250 ML IV SCH ×2 (08:36→19:30)
[2018-12-18] MEDS: LOVENOX SUBQ SCH (08:40)
[2018-12-18] MEDS: COZAAR PO SCH (08:40)
[2018-12-18] MEDS: NORVASC PO SCH ×2 (08:40→20:51)
[2018-12-18] MEDS: ASPIRIN PO SCH (08:40)
[2018-12-18] MEDS: WELLBUTRIN XL PO SCH (08:40)
[2018-12-18] MEDS: AGRYLIN PO SCH ×2 (08:40→20:51)
[2018-12-18] MEDS: BUSPAR PO PRN (08:44)
[2018-12-18] MEDS ORDERED: HYDREA PO SCH (09:00)
[2018-12-18] MEDS ORDERED: NS 1,000 ML IV SCH (11:15)
[2018-12-18] MEDS ORDERED: NS 500 ML IV ONE (11:16)
[2018-12-18 12:23] LABS: URINE SOURCE CLEAN CATCH
[2018-12-18 12:37] LABS: BILIRUBIN URINE NEGATIVE (NEGATIVE); BLOOD URINE NEGATIVE (NEGATIVE); COLOR YELLOW; GLUCOSE URINE NEGATIVE (NEGATIVE); KETONE URINE NEGATIVE (NEGATIVE); LEUKOCYTES URINE NEGATIVE (NEGATIVE); NITRITE URINE NEGATIVE (NEGATIVE); PROTEIN URINE TRACE mg/dL (NEGATIVE); SP GRAVITY URINE 1.009; TURBIDITY URINE CLEAR (CLEAR); UROBILINOGEN URINE NORMAL (NORMAL)
[2018-12-18 12:38] LABS: UR EPITHELIAL CELLS <10 /HPF (<10); URINE BACTERIA NEGATIVE /HPF; URINE RBC <10 /HPF (<10); URINE WBC <10 /HPF (<10)
[2018-12-18] MEDS ORDERED: HUMALOG SUBQ ONE (12:58)
[2018-12-18 14:32] LABS: CALCIUM 8.2 mg/dL (8.8-10.2); CREATININE 1.6 mg/dL (0.5-0.9); POTASSIUM 5.1 mmol/L (3.5-5.1)
[2018-12-18] MEDS ORDERED: MILK OF MAGNESIA PO ONE (15:05)
--- NOTE | 2018-12-18 15:17 | PROGRESS NOTE ---
DATE: 12/18/2018 DATE OF : 1940 SUBJECTIVE: The patient was admitted yesterday with leukocytosis, cough, congestion, and wheezing. The patient was started on acute intervention for recurrent acute exacerbation of chronic obstructive pulmonary disease. The patient's laboratory data was significant for a profound leukocytosis with white blood cell count of 39,000. Renal function was noted to be impaired with a creatinine of 1.6. Overnight, the patient states she did reasonably well. This morning, she continues to complain of profound weakness. Her pulmonary status has stabilized. She denies fevers, chills, nausea, vomiting, or chest discomfort. OBJECTIVE: Vital signs: T max 98.0, heart rate 76-85, respirations 18, blood pressure 106-162/48- 88. General: Chronic ill appearing, no acute distress. Cardiovascular: Regular rate and rhythm. No significant murmurs, rubs or gallops. Pulmonary: Distant breath sounds. Compromised air movement. Abdomen: Soft, nontender, nondistended. Positive bowel sounds. Extremities: Moves all extremities well. No significant clubbing, cyanosis or edema. Dermatologic: Evaluation reveals no evidence of rash. LABORATORY DATA: White blood cell count 36.57, hemoglobin 8.8, hematocrit 29.3, platelet count is 201,000. Sodium 139, potassium 5.8, chloride 109, bicarb 19, BUN 36, creatinine 1.5, glucose 234, calcium 8.4. ASSESSMENT AND PLAN: 1. Acute exacerbation of chronic obstructive pulmonary disease - as described in her History and Physical examination, she has been treated on 3 separate occasions recently. The patient was placed on Solu-Medrol, IV Rocephin, and IV doxycycline yesterday. Bronchodilators were initiated. This morning, the patient does note improvement in her clinical condition. We will begin steroid taper, decreasing to Solu-Medrol 40 mg q.8h. We will continue bronchodilators, antibiotics, incentive spirometry, and aspiration precautions as prescribed. 2. Leukocytosis - this is quite concerning. Baseline white cell count is between 15,000 and 20,000. With this significant increase, I am concerned that this could represent an underlying acute infection. We will also remain aware this could be a primary bone marrow pathology. We will continue treatment of the patient's presumed respiratory infection as described above. We will follow cultures. We will monitor her clinical course. 3. Acute on chronic kidney disease - the patient's baseline creatinine is between 1.2 and 1.4. Creatinine has improved to 1.5 today. We will continue hydration. 4. Hyperkalemia - this is a new diagnosis. We will check an EKG today. We will give the patient a bolus of 500 mL of normal saline and increase IV fluids to 125 mL an hour. We will repeat levels this afternoon. We will determine if further intervention is necessary. 5. Hypoxemia - we will continue the patient on oxygen per protocol. 6. Depression - We will continue the patient on Wellbutrin therapy. 7. Pharyngitis - the patient's rapid strep is pending. We will remain aware that oropharyngeal radha could present in a similar fashion. We will follow this clinically. 8. Reflux disease - the patient was started on omeprazole therapy yesterday. She notes some improvement in her esophageal burning. 9. Hypertension - we will hold the patient's losartan, as described. We will continue home medications otherwise. 10.Thrombocytosis - we will continue the patient on Hydrea and anagrelide therapy as previously prescribed. 11.Immunoglobulin deficiency - we will remain aware. 12.Hyperglycemia - this likely is steroid associated. We will start insulin per protocol. 13.Disposition - at this point, the patient continues to require retirement care in the hospital setting. We will plan discharge home once appropriate. cc: Alek Lopes MD
[2018-12-18] MEDS: HUMALOG SUBQ SCH ×2 (17:37→20:49)
[2018-12-18] MEDS: ROCEPHIN 1 GM in NS 50 ML IV SCH (17:38)
[2018-12-18] MEDS: LIPITOR PO SCH (20:51)
[2018-12-18] MEDS: TENORMIN PO SCH (20:51)
[2018-12-19] MEDS: NS 1,000 ML IV SCH ×3 (00:43→22:35)
[2018-12-19] MEDS: XOPENEX NEB INH SCH ×6 (03:17→23:22)
[2018-12-19] MEDS: SOLU-MEDROL IV SCH ×3 (04:25→13:03)
[2018-12-19] MEDS: PRILOSEC PO SCH (06:50)
[2018-12-19] MEDS: HUMALOG SUBQ SCH ×4 (06:50→20:03)
[2018-12-19 07:42] LABS: BASO# 0.06 X1000 (0.0-0.2); BASO% 0.1 % (0.0-0.8); EOS# 0.01 X1000 (0.0-0.7); HEMATOCRIT 26.9 % (37.0-47.0); HEMOGLOBIN 8.2 g/dL (12.0-16.0); IMM GRAN# 3.65 X1000 (0.0-0.04); IMM GRAN% 7.6 % (0.0-0.5); LYMPH# 2.51 X1000 (1.2-3.4); LYMPH% 5.3 % (20.5-51.1); MCH 33.1 PG (27-31); MCHC 30.5 g/dL (33-37); MCV 108.5 FL (81-99); MONO# 1.52 X1000 (0.11-0.59); MONO% 3.2 % (1.7-9.3); MPV 11.9 FL (7.4-10.4); NEUT# 40.05 X1000 (1.4-6.5); NEUT% 83.8 % (42.2-75.2); PLT 218 X1000 (130-400); RBC 2.48 XMIL (4.2-5.4); RDW 15.5 % (11.5-14.5)
[2018-12-19] MEDS: ADVAIR 250/50 DISKUS INH SCH ×2 (08:02→19:48)
[2018-12-19 08:17] LABS: CALCIUM 7.9 mg/dL (8.8-10.2); CREATININE 1.5 mg/dL (0.5-0.9); POTASSIUM 5.8 mmol/L (3.5-5.1)
[2018-12-19] MEDS: DOXYCYCLINE 100 MG in NS 250 ML IV SCH ×2 (08:22→20:03)
[2018-12-19 08:26] LABS: ANISOCYTOSIS OCCASIONAL; BANDS 4 % (0-1); HYPOCHROM OCCASIONAL; LYMPHS 10 % (21-51); MONO 2 % (1-9); SEGS 82 % (42-75)
[2018-12-19] MEDS: WELLBUTRIN XL PO SCH (08:26)
[2018-12-19] MEDS: ASPIRIN PO SCH (08:28)
[2018-12-19] MEDS: AGRYLIN PO SCH ×2 (08:28→20:03)
[2018-12-19] MEDS: LOVENOX SUBQ SCH (08:28)
[2018-12-19] MEDS: NORVASC PO SCH ×2 (08:28→20:03)
[2018-12-19] MEDS ORDERED: KAYEXALATE PO ONE ×2 (08:58→16:00)
[2018-12-19] MEDS: ATROVENT NEB INH PRN ×2 (12:01→16:14)
--- NOTE | 2018-12-19 13:20 | PROGRESS NOTE ---
DATE: 12/19/2018 SUBJECTIVE: Overall, the patient states that she continues to demonstrate improvement from a pulmonary standpoint. Unfortunately, she continues to have considerable weakness. She denies fevers, chills, nausea, or vomiting. She does, however, complain of dysphagia. The patient states the esophageal burning sensation has improved with initiation of omeprazole. She does, however, continue to have some evidence of dysphagia with possible partial obstruction. She has required dilation of the upper esophagus in the past. Additionally, the patient complains of constipation. Her p.o. intake is marginal. OBJECTIVE: Vital Signs: T-max 98.1 degrees, heart rate 80 to 106, respirations 18 to 22, blood pressure 122 to 155/39 to 43. General: Chronically ill appearing, no acute distress. Cardiovascular: Regular rate and rhythm. No significant murmurs, rubs, or gallops. Pulmonary: Distant breath sounds. Adequate air movement. Abdomen: Soft, nontender, nondistended. Positive bowel sounds. Extremities: Moves all extremities well. No significant clubbing, cyanosis, or edema. Dermatologic: No evidence of rash. LABORATORY DATA: White blood cell count 47.80, hemoglobin 8.2, hematocrit 26.9, platelet count 218,000. Sodium 143, potassium 5.8, chloride 116, bicarb 19, BUN 37, creatinine 1.5, glucose 169, calcium 7.9. ASSESSMENT AND PLAN: 1. Acute exacerbation of chronic obstructive pulmonary disease. Overall, the patient's symptoms are improving. We will continue antibiotic intervention and bronchodilators. We will further decrease Solu-Medrol to 40 mg every 12 hours. We will encourage incentive spirometry and aspiration precautions. 2. Leukocytosis. Baseline white blood cell count is between 15,000 and 20,000. Unfortunately, the patient's white blood cell count remains grossly elevated, even up from yesterday. The question is raised for potential etiologies. The patient is being evaluated and treated for possible infectious etiologies. Underlying bone marrow abnormalities also will need to be considered. In the setting of persistent elevation, we will refer the patient for CT scanning, including chest, abdomen, and pelvis. We will rule out underlying abscess or additional infectious etiologies. For now, we will continue current antibiotic intervention. 3. Acute on chronic kidney disease. The patient's baseline creatinine ranges between 1.2 and 1.4. Creatinine today is 1.5. We will continue hydration. 4. Hyperkalemia. This is quite curious. The patient's potassium yesterday morning was noted to be 5.8. With hydration, it had decreased to 5.1 by the evening. This morning, potassium is again 5.8. Losartan therapy has been held. She is receiving no potassium supplementation. In the setting of constipation, we will initiate Kayexalate therapy. 5. Hypoxemia. We will continue oxygen per protocol. 6. Dysphagia. This is quite curious as well. The patient is being treated with omeprazole therapy. We will check a CT scan of the chest and abdomen to rule out obstructing mass. If this returns negative and as the patient's condition continues to improve, we will consider esophagogastroduodenoscopy evaluation with dilation. 7. Depression. We will continue the patient on Wellbutrin therapy. 8. Reflux disease. We will continue the patient on omeprazole therapy. As above, reflux symptoms are improving with the exception of intermittent dysphagia. 9. Hypertension. The patient's losartan has been held. Blood pressure remains reasonably controlled. We will follow this. 10. Thrombocytosis. The patient is being treated with Hydrea and anagrelide therapy. We will consult Dr. Ortiz for further guidance. Platelet count remains acceptable. 11. Immunoglobulin deficiency. We will remain aware, especially in the setting of possible infection. 12. Hyperglycemia. This likely is steroid associated. We will continue sliding scale insulin. 13. Profound weakness. We will continue to encourage activity. We will treat underlying conditions as above. 14. Disposition. At this point, the patient continues to require jail care in a hospital setting. We will plan discharge home once appropriate. cc: Alek Lopes MD
[2018-12-19 15:34] LABS: CALCIUM 7.8 mg/dL (8.8-10.2); CREATININE 1.5 mg/dL (0.5-0.9); POTASSIUM 5.1 mmol/L (3.5-5.1)
[2018-12-19] MEDS: ROCEPHIN 1 GM in NS 50 ML IV SCH (17:38)
--- NOTE | 2018-12-19 17:39 | Diag Imaging Result Doc PS360 ---
EXAM: CT THORAX/ABD/PELVIS W/O CON - 12/19/2018 HISTORY: COPD/ dysphagia/ elevated WBC [id number] without source TECHNIQUE: CT thorax and abdomen/pelvis without contrast. No contrast administered per request of the referring provider. COMPARISON: 11/06/2017 FINDINGS: CT thorax: There are emphysematous changes. There are small bilateral pleural effusions. There is some dependent/compressive atelectasis of the bilateral lower lobes adjacent to the pleural fluid. There is no other consolidation identified. There is no pneumothorax identified. There are some nonspecific small mediastinal lymph nodes which are overall less prominent compared to prior. CT abdomen/pelvis: There are no acute changes identified in the liver, spleen, adrenal glands, or pancreas. The gallbladder surgically absent. There are no acute changes identified in the bilateral kidneys. There is a cyst at the upper right kidney. There is no renal stone or substantial hydronephrosis identified. There are substantial atherosclerotic calcifications noted similar to the prior exam. There are some lumbar spine degenerative changes noted. The stomach is distended with debris and fluid. There is no evidence of small bowel obstruction. The colon is mildly distended with fecal debris. There is colonic diverticulosis. There is no discrete diverticulitis identified. There is no abscess identified. There is no free air or substantial free fluid identified. There is a history of partial hysterectomy. There is no abnormal pelvic mass or fluid collection identified. IMPRESSION: CT thorax: Emphysematous changes. Small bilateral pleural effusions with adjacent dependent/compressive atelectasis. No discrete pneumonia. CT abdomen/pelvis: Distended stomach with debris and fluid. No small bowel obstruction. Constipation. Colonic diverticulosis. No discrete diverticulitis. No abscess. No free air. Extensive atherosclerotic calcifications noted similar to prior. This exam was performed using automated exposure control, adjustment of mA or kV according to patient size, and/or use of iterative reconstruction technique. Electronically signed by Armin Randall 12/19/2018 5:37 PM
[2018-12-19] MEDS: TENORMIN PO SCH (20:03)
[2018-12-19] MEDS: LIPITOR PO SCH (20:03)
[2018-12-20] MEDS: SOLU-MEDROL IV SCH ×2 (00:34→12:16)
[2018-12-20] MEDS: XOPENEX NEB INH SCH ×6 (04:36→23:05)
[2018-12-20] MEDS: ATROVENT NEB INH PRN (05:49)
[2018-12-20] MEDS: PRILOSEC PO SCH ×2 (05:54→06:17)
[2018-12-20] MEDS: BUSPAR PO PRN (05:57)
[2018-12-20] MEDS: HUMALOG SUBQ SCH ×4 (06:16→20:16)
[2018-12-20 07:24] LABS: BASO# 0.05 X1000 (0.0-0.2); BASO% 0.1 % (0.0-0.8); HEMATOCRIT 25.5 % (37.0-47.0); HEMOGLOBIN 7.8 g/dL (12.0-16.0); IMM GRAN% 4.7 % (0.0-0.5); LYMPH# 1.75 X1000 (1.2-3.4); LYMPH% 3.6 % (20.5-51.1); MCH 33.1 PG (27-31); MCHC 30.6 g/dL (33-37); MCV 108.1 FL (81-99); MONO# 0.66 X1000 (0.11-0.59); MONO% 1.4 % (1.7-9.3); MPV 11.3 FL (7.4-10.4); NEUT# 43.72 X1000 (1.4-6.5); NEUT% 90.2 % (42.2-75.2); PLT 211 X1000 (130-400); RBC 2.36 XMIL (4.2-5.4); RDW 16.1 % (11.5-14.5); WBC 48.48 X1000 (4.8-10.8)
[2018-12-20] MEDS: ADVAIR 250/50 DISKUS INH SCH ×2 (07:35→19:45)
--- NOTE | 2018-12-20 07:51 | EKG Report ---
Test Performed on : 12/18/2018 11:46:33 AM Test Reason : hyperkalemia Blood Pressure : / mmHG Vent. Rate : 079 BPM Atrial Rate : 079 BPM P-R Int : 176 ms QRS Dur : 080 ms QT Int : 374 ms P-R-T Axes : 086 070 077 degrees QTc Int : 428 ms Normal sinus rhythm. Possible Anterior infarct , age undetermined Abnormal ECG When compared with ECG of 07-MAR-2016 06:38, No significant change was found Confirmed by Sherry SNOW, Vikram Becerra ([id number]) on 12/20/2018 9:12:51 PM
[2018-12-20 08:07] LABS: AGAP 10; ALB/GLOB RATIO 1.2; ALBUMIN 3.1 g/dL (3.5-5.0); ALKALINE PHOSPHATASE 100 U/L (32-104); BUN 38 mg/dL (8-22); CALCIUM 8.3 mg/dL (8.8-10.2); CHLORIDE 118 mmol/L (98-107); COSMO 303; CREATININE 1.4 mg/dL (0.5-0.9); ESTIMATED GFR 37; GLUCOSE 166 mg/dL (70-104); GOT 22 U/L (10-30); GPT 21 U/L (10-36); SODIUM 146 mmol/L (136-145); TCO2 18 mmol/L (25-35); TOTAL BILIRUBIN < 0.15 mg/dL (0.20-1.00); TOTAL PROTEIN 5.6 g/dL (6.3-8.3)
[2018-12-20] MEDS: DOXYCYCLINE 100 MG in NS 250 ML IV SCH ×2 (08:46→20:15)
[2018-12-20] MEDS: NORVASC PO SCH ×2 (08:47→20:16)
[2018-12-20] MEDS: ASPIRIN PO SCH (08:47)
[2018-12-20] MEDS: LOVENOX SUBQ SCH (08:47)
[2018-12-20] MEDS: WELLBUTRIN XL PO SCH (08:47)
[2018-12-20] MEDS: HYDREA PO SCH (08:47)
[2018-12-20] MEDS: NS 1,000 ML IV SCH ×2 (08:47→18:32)
[2018-12-20] MEDS: AGRYLIN PO SCH ×2 (08:47→20:15)
[2018-12-20 09:09] LABS: BANDS 4 % (0-1); LYMPHS 8 % (21-51); SEGS 86 % (42-75)
[2018-12-20 09:29] LABS: LDH 478 U/L (135-214)
[2018-12-20] MEDS: ROCEPHIN 1 GM in NS 50 ML IV SCH (17:04)
[2018-12-20] MEDS ORDERED: GLYCERIN ADULT PR ONE (17:34)
[2018-12-20] MEDS ORDERED: DULCOLAX PR ONE (17:34)
[2018-12-20] MEDS: LIPITOR PO SCH (20:16)
[2018-12-20] MEDS: MYCOSTATIN SUSP PO SCH (20:16)
[2018-12-20] MEDS: TENORMIN PO SCH (20:16)
--- NOTE | 2018-12-21 00:16 | PROGRESS NOTE ---
DATE: 12/20/2018 SUBJECTIVE: This morning, the patient noted having an acute episode of shortness of breath after walking to the restroom. The patient noted a chest tightness with ambulation. Throughout the day, patient states she did reasonably well. She denies fevers, chills, nausea, vomiting, or chest discomfort. Shortness of breath has continued to improve. This evening, patient was walking back from the restroom. She does again note significant shortness of breath. OBJECTIVE: T-max 98.6, heart rate 85 to 101, respirations 15 to 20, blood pressure 132 to 154 over 40 to 68. General: Chronically ill appearing, no acute distress. Cardiovascular: Slightly tachycardic. Regular rhythm. No significant murmurs, rubs, or gallops. Pulmonary: Distant breath sounds. Reasonable air movement. Abdomen: Soft, nontender, nondistended. Positive bowel sounds. Extremities: Moves all extremities well. No significant clubbing, cyanosis, or edema. Dermatologic: Evaluation reveals no evidence of rash. LABORATORY DATA: White blood cell count 48.48, hemoglobin 7.2, hematocrit 25.5, platelet count 211,000. Sodium 146, potassium 5.0, chloride 118, bicarb 18, BUN 38, creatinine 1.4, glucose 166, calcium 8.3, total bilirubin less than 0.15, total protein 5.6, albumin 3.1, alkaline phosphatase 100, AST 22, ALT 21. LDH 478. ASSESSMENT AND PLAN: 1. Acute exacerbation of chronic obstructive pulmonary disease-overall, patient's condition has demonstrated improvement from admission. The question is raised whether patient's acute shortness of breath this morning was secondary to chronic obstructive pulmonary disease or underlying cardiac etiology. We will continue patient's current regimen of antibiotics, bronchodilators, and Solu-Medrol. We will encourage incentive spirometry and aspiration precautions. 2. Leukocytosis-I remain very concerned in this regard. With treatment of patient's chronic obstructive pulmonary disease, patient has not demonstrated significant improvement in the white blood cell count. I consulted Dr. Ortiz this morning. We will defer further hematologic evaluation to his discretion. 3. Acute shortness of breath-this has occurred twice today. Patient does note having an atypical chest discomfort. The question is raised as to whether this is cardiac or pulmonary in etiology. The patient's recent CT scan suggested a small pleural effusion. She has received a considerable amount of intravenous fluids while hospitalized. We will discontinue IV fluids. We will continue bronchodilators. We will check cardiac enzymes. We will follow this. 4. Acute on chronic kidney disease-patient's creatinine today has improved to 1.4. We will remain aware. 5. Hyperkalemia-patient's potassium was slightly improved from yesterday. She has been treated with Kayexalate therapy. 6. Hypoxemia-we will continue oxygen per protocol. 7. Dysphagia-this morning, I consulted Dr. Fong. We will continue omeprazole therapy. We will defer further evaluation to his discretion. 8. Depression-we will continue Wellbutrin therapy. 9. Reflux disease-we will continue omeprazole therapy. 10. Hypertension-blood pressure is reasonably controlled on her current regimen. 11. Thrombocytosis-we will continue Hydrea and anagrelide per Dr. Ortiz. 12. Immunodeficiency-we will remain aware, especially in the setting of possible acute infection. 13. Hyperglycemia-we will continue patient on sliding scale insulin. 14. Profound weakness-once able, we will initiate physical therapy. 15. Disposition-at this point, patient continues to require senior care care in the hospital setting. We will plan discharge home once appropriate. cc: Alek Lopes MD
[2018-12-21] MEDS: SOLU-MEDROL IV SCH ×2 (01:04→12:40)
--- NOTE | 2018-12-21 02:25 | HEMO/ONC CONSULTATION ---
DATE: 12/20/2018 CHIEF COMPLAINT: We are being consulted for further management of the patient' s elevated white blood cell count. HISTORY OF PRESENT ILLNESS: Ms. Tracy has been treated by Dr. Lopes for a significant cough condition and wheezing that started back in early October. The patient has been on 3 rounds of antibiotics as an outpatient with steroids and bronchodilators, and continues to have shortness of breath, weakness and wheezing. The patient's cough has been intermittent and nonproductive, and the patient followed up with Dr. Lopes after being seen in our clinic for further evaluation and was found to have profound weakness, [id number] shortness of breath, with leukocytosis and was admitted at that time for further evaluation of her leukocytosis and COPD exacerbation. Ms. Tracy is well known to us in our clinic where she follows up for essential thrombocytosis. The patient has been on anagrelide 2 mg 3 times a day and Hydrea 500 mg on Thursday and Thursday for quite a while now. The patient has had bone marrow biopsy in the past that was without any evidence of leukemia or other underlying malignancy. PAST MEDICAL HISTORY: Anemia, coronary artery disease, cholelithiasis, chronic kidney disease, chronic obstructive pulmonary disease, depression, diabetes, reflux disease, hypertension, hypertriglyceridemia, essential thrombocytosis, gout, hiatal hernia, hyperlipidemia, chronic hypoxemia, immunoglobulin deficiency, menopause, chronic tobacco abuse, osteoarthritis, peripheral arterial disease, pulmonary nodules, intermittent dizziness. SOCIAL HISTORY: The patient smokes approximately a pack a day. Rarely uses any alcohol. Denies any illicit drug use. FAMILY HISTORY: Prostate cancer, pulmonary embolism, myocardial infarction, diabetes, hypertension, hyperlipidemia. ALLERGIES: Allergic to Crestor, Demerol, fenofibrate, Keflex, Klonopin, pravastatin, prednisone. HOME MEDICATIONS: Advair, anagrelide, aspirin, atenolol, atorvastatin, buspirone, Colcrys, Hydrea, Ipratropium bromide/albuterol, losartan, Norvasc, Prevacid, ProAir HFA inhaler, Phenergan, and Wellbutrin XL. REVIEW OF SYSTEMS: Negative unless mentioned in HPI. PHYSICAL EXAMINATION: Vital Signs: Temperature 97.4 degrees, heart rate 79, respiratory rate 18, blood pressure 134/40, O2 saturation is 93% on nasal cannula. General: The patient is awake, lying in bed, no acute distress noted. HEENT: Anicteric. Pupils are PERRLA. Mucous membranes moist. Cardiovascular: S1, S2. Regular rate and rhythm. Neck: Trachea midline. No JVD. Lymph Node Survey: No palpable lymphadenopathy. Chest: Breath sounds diminished bilaterally. Abdomen: Soft, nontender, nondistended. Bowel sounds present in all 4 quadrants. No hepatosplenomegaly noted. Skin: Warm, dry, and intact. Neurologic: Alert and oriented x3. No focal deficits noted. LABORATORY DATA: White cell count 48.48, hemoglobin 7.8, hematocrit 25.5, platelets are 211,000. Potassium 5.0, BUN 38, creatinine 1.4. LDH is 478, RADIOLOGY RESULTS: CT of the abdomen, chest and pelvis shows emphysematous changes, small bilateral pleural effusions, distended stomach. No small bowel obstruction. Some constipation and colonic diverticulosis. No abscess. No free air. ASSESSMENT AND PLAN: 1. Leukocytosis: The patient has previously had bone marrow biopsy and flow cytometry without any evidence of leukemia at that time. The patient had a bone marrow biopsy done in February of 2018. The patient's leukocytosis could be caused from recent steroid use, it could be caused by an underlying infection, or it could still be caused some underlying disease that has not been found at this time. Further workup has been ordered. We will continue to monitor and follow along. 2. Essential thrombocytosis. Platelet count continues to be stable. The patient will continue on anagrelide and Hydrea as instructed. 3. Acute exacerbation of chronic obstructive pulmonary disease. Continue recommendations by primary medical team at this time. 4. Chronic kidney disease. Continue with hydration. Continue recommendations by primary medical team. 5. Depression. Aware. Continue recommendations by primary medical team. 6. Gastroesophageal reflux disease. Continue recommendations by primary medical team. 7. Plan of care discussed with Dr. Ortiz. Dictated by ROSANNA Bueno for Jose Antonio Ortiz MD Patient seen and examined. History of essential thombocytosis on hydrea and anegrelide with good platelet control. Now with leukocytosis. Previously flow and BCR-ABL negative. Maybe reactive or may have underlying MPD/MDS. Watch for now. Jose Antonio Ortiz cc: ROSANNA Bueno MD Scott A. Matthews, MD MTDD
[2018-12-21] MEDS: XOPENEX NEB INH SCH ×6 (03:53→22:40)
--- NOTE | 2018-12-21 04:37 | CONSULTATION ---
DATE OF CONSULTATION: 12/20/2018 REASON FOR CONSULTATION: Dysphagia. HISTORY OF PRESENT ILLNESS: This is a 77-year-old, white female who reports onset of symptoms in October. She reported cough, congestion, and wheezing. She had been treated on three different occasions as an outpatient with antibiotics, steroids, and bronchodilators. She has had progressive sore throat. She has also reported cough, weakness, shortness of breath. She has also reported some burning in the stomach and burning in the esophagus. She has reported dysphagia. She has been complaining of things getting stuck in the esophagus. She had a CT scan of the abdomen that showed distention in the stomach, and debris and fluid. No evidence of bowel obstruction. The colon was mildly distended with fecal debris. She does report some recent problems with constipation. Denies diarrhea. Denies fever. She states last night, she had an episode where she could not breathe. She had complained of chest discomfort and trouble breathing. She had a breathing treatment and symptoms improved. It was thought that she may have acute bronchospasm. She was also found to have an elevated WBC count of 40,000. She follows with Dr. Ortiz for thrombocytosis. By our records, her last EGD was in October of 2016 that showed a Schatzki's ring with dilation and esophagitis. She had a colonoscopy in December of 2016 that showed diverticulosis with no evidence of colon polyps. PAST MEDICAL HISTORY: Anemia, carotid artery disease, history of cholelithiasis, chronic kidney disease, chronic obstructive pulmonary disease, depression, diabetes (although by the patent's report, she does not carry a diagnosis of diabetes and is not on diabetic medication at home), GERD, hypertension, history of thrombocytosis followed with Dr. Ortiz, history of osteoarthritis, peripheral artery disease. ALLERGIES: Demerol causing respiratory distress; Keflex, a rash; codeine, unknown; IV dye, unknown; adhesive tape, a rash. HOME MEDICATIONS: Tylenol 650 mg every 4 hours as needed, albuterol inhaler 4 times a day, Norvasc 5 mg twice a day, Agrylin 2 mg twice a day, aspirin 81 mg daily, Tenormin 50 mg every night, bupropion XL 300 mg daily, BuSpar 15 mg 3 times a day as needed, Plavix 75 mg daily, fluticasone inhaler twice a day, Hydrea 500 mg daily, Cozaar 50 mg daily, Prilosec 20 mg twice a day, vitamin B complex daily. SOCIAL HISTORY: Positive for tobacco use, usually one pack a day. Rare alcohol use. 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 FAMILY HISTORY: Father from prostate cancer, history of pulmonary embolism. Mother from acute myocardial infarction, diabetes, hypertension, and hyperlipidemia. REVIEW OF SYSTEMS: Per history of present illness. Positives and negatives listed in HPI. PHYSICAL EXAMINATION: Vital Signs: Temperature 97.4 degrees, pulse 79, respirations 18, blood pressure 134/40. General: The patient is awake and alert. No acute distress. HEENT: Normocephalic and atraumatic. Pupils equal, round, and reactive to light. Sclerae nonicteric. Cardiovascular: Regular rate and rhythm. Pulmonary: Lung sounds essentially clear. Abdomen: Soft. Positive bowel sounds. Nontender. Extremities: No lower extremity edema noted. LABORATORY: Hematology: WBC 48.48, hemoglobin 7.8, hematocrit 25.5, MCV 108.1, platelets 211,000. Chemistry: Sodium 146, potassium 5.0, chloride 118, CO2 18, BUN 38, creatinine 1.4, glucose 166, calcium 8.3. AST 22, ALT 21, alkaline phosphatase 100. LDH 478. ASSESSMENT AND PLAN: 1. Chronic obstructive pulmonary disease. The patient is receiving steroids and respiratory management. 2. Leukocytosis. 3. Chronic kidney disease. 4. Hyperkalemia. The patient received Kayexalate therapy. 5. Dysphagia. The patient does have a history of a Schatzki's ring with dilation in October of 2016. Recommend to continue a proton pump inhibitor. We will also add nystatin for possible radha esophagitis that can cause dysphagia. 6. She has also complained of constipation. She has had a dose of milk of magnesia. We will add a glycerin suppository, followed by a Dulcolax suppository. Hydrea can cause stomach ulcers. Continue to follow and further plans to be made according to her progress. She made need an esophagogastroduodenoscopy at a later date. Again, we will continue to follow and further plans will be made as needed. Patient was also seen by Dr. Fong. Dictated by ROSANNA Bhat for Jaxon Fong MD cc: ROSANNA Silva MD Scott A. Matthews, MD
[2018-12-21] MEDS: HUMALOG SUBQ SCH ×4 (06:18→21:54)
[2018-12-21] MEDS: PRILOSEC PO SCH (06:18)
[2018-12-21] MEDS: ADVAIR 250/50 DISKUS INH SCH ×2 (08:09→19:30)
[2018-12-21 08:25] LABS: BASO# 0.04 X1000 (0.0-0.2); BASO% 0.1 % (0.0-0.8); HEMATOCRIT 26.8 % (37.0-47.0); HEMOGLOBIN 8.1 g/dL (12.0-16.0); LYMPH# 1.61 X1000 (1.2-3.4); LYMPH% 3.6 % (20.5-51.1); MCH 32.7 PG (27-31); MCHC 30.2 g/dL (33-37); MCV 108.1 FL (81-99); MONO# 1.24 X1000 (0.11-0.59); MONO% 2.7 % (1.7-9.3); MPV 11.7 FL (7.4-10.4); PLT 222 X1000 (130-400); RBC 2.48 XMIL (4.2-5.4); RDW 16.3 % (11.5-14.5); WBC 45.34 X1000 (4.8-10.8)
[2018-12-21 08:33] LABS: CALCIUM 8.9 mg/dL (8.8-10.2); CREATININE 1.3 mg/dL (0.5-0.9); POTASSIUM 4.7 mmol/L (3.5-5.1)
[2018-12-21 08:50] LABS: BANDS 8 % (0-1); LYMPHS 2 % (21-51); MONO 6 % (1-9); SEGS 84 % (42-75)
[2018-12-21] MEDS ORDERED: LASIX PO ONE (09:07)
[2018-12-21] MEDS: DOXYCYCLINE 100 MG in NS 250 ML IV SCH ×2 (09:23→21:43)
[2018-12-21] MEDS: MYCOSTATIN SUSP PO SCH ×4 (09:29→21:51)
[2018-12-21] MEDS: NORVASC PO SCH ×2 (09:29→21:51)
[2018-12-21] MEDS: AGRYLIN PO SCH ×2 (09:29→21:51)
[2018-12-21] MEDS: LOVENOX SUBQ SCH (09:29)
[2018-12-21] MEDS: ASPIRIN PO SCH (09:29)
[2018-12-21] MEDS: WELLBUTRIN XL PO SCH (09:29)
--- NOTE | 2018-12-21 13:47 | PROGRESS NOTE ---
DATE: 12/21/2018 SUBJECTIVE: Patient states she feels a little better today. She was able to get up and walk to the bathroom without significant shortness of breath. She has been started on Nystatin yesterday, along with her PPI. We had given her additional laxatives, and she states she did have a small bowel movement today. Dr. Ortiz has seen her for leukocytosis. OBJECTIVE: Vital Signs: Temperature 98.1 degrees, pulse 82, respirations 16, blood pressure 149/52. General: Patient is awake and alert, in no acute distress. Respiratory: With some decreased breath sounds, otherwise no wheezing noted. Abdomen: Soft. Positive bowel sounds. Nontender. LABORATORY: Hematology: WBC 45.34, hemoglobin 8.1, hematocrit 26.8, MCV 108.1, platelets 222. Chemistry: Sodium 149, potassium 4.7, chloride 119, CO2 20. BUN 35, creatinine 1.3, glucose 84. AST 22, ALT 21, alkaline phosphatase 100, LDH 478. ASSESSMENT AND PLAN: 1. Chronic obstructive pulmonary disease with exacerbation. 2. Leukocytosis. Dr. Ortiz is following. 3. Dysphagia. Continue proton pump inhibitor. We have also added Nystatin for possible Maren esophagitis. 4. Constipation. Patient has received laxatives and had a bowel movement this morning. 5. Anemia. Continue to monitor. 6. We will continue to follow along with the patient. Continue current medications. Further plans to be made according to her progress. I have discussed this case with Dr. Fong. Dictated by ROSANNA Bhat for Jaxon Fong MD cc: ROSANNA Silva MD Scott A. Matthews, MD
--- NOTE | 2018-12-21 14:48 | HEMO/ONC CONSULTATION ---
DATE: 12/21/2018 SUBJECTIVE: Patient continues to have shortness of breath with any exertion. Patient denies any other complaints. OBJECTIVE: Vital Signs: Temperature 98.1 degrees, heart rate 91, respiratory rate 20, blood pressure 149/52, saturation 91% on nasal cannula. General: Patient is awake lying in bed, no acute distress noted. HEENT: PERRLA, Mucous membranes moist. Cardiovascular: Normal rate and rhythm. Chest: Bilateral breath sounds diminished bilaterally. Abdomen: Soft nontender, bowel sounds present Neurological: Alert and oriented x3. LABS: WBC: 45.34, H/H: 8.1/26.8, Platelets: 222. Potassium: 4.7, BUN 35, Creat 1.3. Assessment and Plan: 1. Leukocytosis: WBC continues to be elevated at 45.34. Most likely reactive or has underlying MPD/MDS. Continue to monitor for now. 2. Essential Thrombocytosis: Platelet counts continue to be stable. Continue Hydrea and anagrelide. 3.COPD: Continue recommendations per primary medical team. 4. Supportive care: Patient to get out of bed as much as possible. Dictated by ROSANNA Bueno for Jose Antonio Ortiz MD Patient seen and examined. Her leukocytosis is stable. This is most likely related to a combination of reactive process and MDS/MPD. Continue to simply observe. Continue current medications. Jose Antonio Ortiz M.D. cc: ROSANNA Bueno MD Scott A. Matthews, MD [facility]PITALElsa
[2018-12-21] MEDS: ROCEPHIN 1 GM in NS 50 ML IV SCH (19:08)
--- NOTE | 2018-12-21 20:51 | PROGRESS NOTE ---
DATE: 12/21/2018 SUBJECTIVE: Upon my arrival this morning, patient was resting. She noted persistent shortness of breath with minimal exertion. The patient was treated with oral Lasix. Patient diuresed well. This evening, patient states her shortness of breath has improved considerably. She does, however, continued to require oxygen supplementation. Throughout the day, she denies fevers, chills, nausea, vomiting, or chest discomfort. OBJECTIVE: Vital Signs: T-max 98.1, heart rate 70-94, respirations 16-20, blood pressure 129-149 over 45-52. General: Chronically ill appearing, no acute distress. Cardiovascular: Regular rate and rhythm. No significant murmurs, rubs, or gallops. Pulmonary: Distant breath sounds. Crackles at the bases. Abdomen: Soft, nontender, nondistended. Positive bowel sounds. Extremities: Moves all extremities well. No significant clubbing, cyanosis, or edema. Dermatologic: Evaluation reveals no evidence of rash. LABORATORY DATA: White blood cell count 45.34, hemoglobin 8.1, hematocrit 26.8, platelet count 222,000. Sodium 149, potassium 3.7, chloride 119, bicarb 20, BUN 35, creatinine 1.3. Glucose 84. Calcium 8.9. CK total 26, troponin less than 0.010. ASSESSMENT AND PLAN: 1. Acute exacerbation of chronic obstructive pulmonary disease. Overall, patient's condition continues to slowly improve. We will continue antibiotics, bronchodilators and IV steroids. We will resume steroid taper once her condition has stabilized. 2. Leukocytosis-I remain concerned in this regard. Patient has not demonstrated significant improvement with treatment of her underlying infection. We will defer further management to Dr. Ortiz. 3. Acute shortness of breath-this occurred yesterday on several occasions. With diuresis today, her shortness of breath has improved considerably. This likely was a consequence of volume overload state. 4. Acute on chronic kidney disease-the patient's creatinine has improved to 1.3. Interestingly, with IV hydration, patient has developed some shortness of breath and likely pleural effusions. The patient was diuresed today. We will follow kidney function with diuresis. 5. Hyperkalemia-the patient's potassium has improved from admission. We will follow this with diuresis as well. 6. Hypoxemia - We will continue patient on oxygen per protocol. 7. Dysphagia-patient is currently being treated with omeprazole therapy for reflux and nystatin for possible Maren esophagitis. The patient's symptoms are stable. She likely will require an EGD in the near future. 8. Depression-we will continue Wellbutrin therapy. 9. Hypertension. Patient's blood pressure is controlled on her current regimen. 10. Thrombocytosis-we will continue patient on Hydrea and anagrelide therapy. Platelet count is stable. 11. Immunodeficiency/hypogammaglobulinemia. We will remain aware in the setting of possible infection. 12. Hyperglycemia - This likely is a consequence of steroid intervention. We will continue sliding scale insulin. 13. Profound weakness-patient's overall condition has improved from yesterday. We will consider initiating physical therapy tomorrow. 14. Disposition-at this point, patient continues to require long-term care in a hospital setting. We will plan discharge home once appropriate. cc: Alek Lopes MD
[2018-12-21] MEDS: TENORMIN PO SCH (21:52)
[2018-12-21] MEDS: LIPITOR PO SCH (21:53)
[2018-12-22] MEDS: SOLU-MEDROL IV SCH ×2 (00:38→13:44)
[2018-12-22] MEDS: XOPENEX NEB INH SCH ×6 (03:41→23:20)
[2018-12-22] MEDS: PRILOSEC PO SCH (06:28)
[2018-12-22] MEDS: HUMALOG SUBQ SCH ×4 (06:28→22:11)
[2018-12-22 07:13] LABS: BASO# 0.03 X1000 (0.0-0.2); BASO% 0.1 % (0.0-0.8); HEMATOCRIT 26.1 % (37.0-47.0); IMM GRAN% 3.3 % (0.0-0.5); LYMPH# 1.37 X1000 (1.2-3.4); LYMPH% 3.8 % (20.5-51.1); MCH 32.5 PG (27-31); MCHC 30.7 g/dL (33-37); MCV 106.1 FL (81-99); MONO# 1.25 X1000 (0.11-0.59); MONO% 3.5 % (1.7-9.3); NEUT# 32.37 X1000 (1.4-6.5); NEUT% 89.3 % (42.2-75.2); PLT 208 X1000 (130-400); RBC 2.46 XMIL (4.2-5.4); RDW 16.2 % (11.5-14.5); WBC 36.22 X1000 (4.8-10.8)
[2018-12-22 07:30] LABS: CALCIUM 8.8 mg/dL (8.8-10.2); CREATININE 1.3 mg/dL (0.5-0.9); POTASSIUM 4.2 mmol/L (3.5-5.1)
[2018-12-22 07:51] LABS: BANDS 2 % (0-1); LYMPHS 6 % (21-51); MONO 1 % (1-9); SEGS 87 % (42-75)
[2018-12-22 07:52] LABS: OVALOCYTES 1+
[2018-12-22] MEDS: ADVAIR 250/50 DISKUS INH SCH ×2 (08:14→20:25)
--- NOTE | 2018-12-22 09:01 | HEMO/ONC PROGRESS NOTE ---
DATE: 12/22/2018 SUBJECTIVE: Patient continues to have shortness of breath. Patient maybe has mildly improved. The patient denies any other complaints at this time. OBJECTIVE: Vital Signs: Temperature 98 degrees, heart rate 79, respiratory rate 20, blood pressure is 140/47, saturating 100% on nasal cannula. General: Patient is awake, lying in bed, no acute distress noted. HEENT: Anicteric. Pupils PERRLA. Mucous membranes moist. Cardiovascular: S1, S2. Regular rate and rhythm. Chest: Bilateral breath sounds diminished bilaterally. Abdomen: Soft, nontender. Bowel sounds present in all 4 quadrants. Neurologic: Alert and oriented x3. No focal deficits noted. LABORATORY DATA: White blood cell count 36.22, hemoglobin 8, hematocrit 26.1, platelets 208,000. Potassium 4.2, BUN 36, creatinine 1.3. ASSESSMENT AND PLAN: 1. Leukocytosis. Due to a combination of reactive process/MDS/MPD. White blood cell count is trending downward. Today it is down to 36.22. Continue to monitor at this time. 2. Essential thrombocytosis. Platelet counts continue to be stable. Today, platelets are 208,000. Continue to monitor closely. 3. Acute exacerbation of chronic obstructive pulmonary disease: Shortness of breath continues to slowly improve. Continue medication per primary medical team. 4. Acute on chronic kidney disease: Creatinine continues to improve. Creatinine down to 1.3. Continue recommendation by primary medical team. Dictated by ROSANNA Bueno for Jose Antonio Ortiz MD cc: ROSANNA Bueno MD Scott A. Matthews, MD [facility]
[2018-12-22] MEDS: DOXYCYCLINE 100 MG in NS 250 ML IV SCH ×2 (09:18→12:50)
[2018-12-22] MEDS: WELLBUTRIN XL PO SCH (09:22)
[2018-12-22] MEDS: AGRYLIN PO SCH ×2 (09:22→22:10)
[2018-12-22] MEDS: ASPIRIN PO SCH (09:23)
[2018-12-22] MEDS: HYDREA PO SCH (09:23)
[2018-12-22] MEDS: NORVASC PO SCH ×2 (09:23→22:10)
[2018-12-22] MEDS: LOVENOX SUBQ SCH (09:24)
[2018-12-22] MEDS: MYCOSTATIN SUSP PO SCH ×4 (09:24→22:09)
[2018-12-22] MEDS ORDERED: LASIX PO ONE (09:32)
--- NOTE | 2018-12-22 14:45 | PROGRESS NOTE ---
DATE: 12/22/2018 SUBJECTIVE: Patient states she feels a little better today. She is still having some shortness of breath. She is still complaining of some dysphagia. She was started on nystatin for the possibility of Maren esophagitis. She states she has noticed no improvement with the medication. She has had a bowel movement since admission. OBJECTIVE: Vital Signs: Temperature 98.5 degrees, pulse 84, respirations 20, blood pressure 145/85. General: Patient is awake, alert, in no acute distress. LABORATORY: Hematology: WBC 36.22, hemoglobin 8.0, hematocrit 26.1, MCV 106.1, platelets 208,000. Chemistry: Sodium 145 potassium 4.2, chloride 114, CO2 of 19, BUN 36, creatinine 1.3, glucose 165. ASSESSMENT AND PLAN: 1. Acute exacerbation of chronic obstructive pulmonary disease (COPD). On medications. 2. Leukocytosis. Dr. Ortiz is following. 3. Acute/chronic kidney disease. Patient has had diuretics today. 4. Dysphagia. Continue PPI. Continue nystatin for possibility of Maren esophagitis. Most likely, she will require EGD that can be done as an outpatient or if she remains in the hospital, it can be done prior to discharge once her respiratory status has improved. We will continue to follow along, and further plans will be made according to her progress. I have discussed this case with Dr. Fong. Dictated by ROSANNA Bhat for Jaxon Fong MD cc: ROSANNA Silva MD Scott A. Matthews, MD
--- NOTE | 2018-12-22 20:16 | PROGRESS NOTE ---
DATE: 12/22/2018 SUBJECTIVE: This morning, patient noted having had a reasonable evening. Over the course of the day, patient continued to have intermittent shortness of breath. This primarily occurred with exertion. She denied associated chest discomfort. She continues to have dysphagia. She currently is being treated for the possibility of Maren esophagitis. There has been no evidence of fevers, chills, nausea, or vomiting. OBJECTIVE: Vital Signs: T-max 98.5, heart rate 78-94, respirations 16-20, blood pressure 119- 151/40-85. General: Chronically ill appearing, no acute distress. Cardiovascular: Regular rate and rhythm. No significant murmurs, rubs, or gallops. Pulmonary: Distant breath sounds. Abdomen: Soft, nontender, nondistended. Positive bowel sounds. Extremities: Moves all extremities well. No significant clubbing, cyanosis, or edema. Dermatologic: Evaluation reveals no evidence of rash. Multiple ecchymoses are present. LABORATORY DATA: White blood cell count 36.22, hemoglobin 8.0, hematocrit 26.1, platelet count 208,000. Sodium 145, potassium 4.2, chloride 119, bicarb 19, BUN 36, creatinine 1.3, glucose 133. Calcium 8.8. ASSESSMENT AND PLAN: 1. Acute exacerbation of chronic obstructive pulmonary disease-this afternoon, patient has lost an additional IV. Because of her significant difficulty with IV placement, we will attempt to transition patient from IV to oral therapy. We will start cefepime, doxycycline, and prednisone therapy. We will continue bronchodilators. 2. Leukocytosis-this likely is a combination of reactivity and underlying bone marrow pathology. We will continue treatment as above. We will follow along with Dr. Ortiz. 3. Acute shortness of breath-this likely is a consequence of her acute exacerbation of chronic obstructive pulmonary disease and mild volume overload. After diuresis yesterday, patient noted improvement. We will again diurese today. We will follow this. 4. Dysphagia/odynophagia-as above, patient is being treated for the possibility of underlying Maren esophagitis and reflux disease with nystatin and omeprazole. Symptoms have stabilized. We will plan EGD evaluation as an outpatient. 5. Acute on chronic kidney disease - Patient's creatinine is stable at present time. 6. Hyperkalemia-patient has achieved improvement since admission. We will follow this. 7. Hypoxemia - We will continue oxygen per protocol. 8. Depression-we will continue patient on Wellbutrin therapy. 9. Hypertension-blood pressure is controlled on her current regimen. 10. Thrombocytosis-patient's platelet count is stable with Hydrea and anagrelide therapy. 11. Immunodeficiency/hypogammaglobulinemia-we will remain aware, especially in the setting of acute infection. 12. Hyperglycemia-this likely is a consequence of steroid intervention. We will continue sliding scale insulin. 13. Profound weakness-physical therapy has been initiated. We will determine whether home physical therapy or rehabilitation is necessary at discharge. DISPOSITION: At this point, patient continues to require detention care in a hospital setting. We will plan discharge home once appropriate. cc: Alek Lopes MD
[2018-12-22] MEDS: DOXYCYCLINE PO SCH (22:09)
[2018-12-22] MEDS: OMNICEF PO SCH (22:10)
[2018-12-22] MEDS: TENORMIN PO SCH (22:10)
[2018-12-22] MEDS: LIPITOR PO SCH (22:12)
[2018-12-23] MEDS: XOPENEX NEB INH SCH ×4 (03:55→15:44)
[2018-12-23] MEDS: PRILOSEC PO SCH (06:54)
[2018-12-23] MEDS: HUMALOG SUBQ SCH ×3 (06:55→17:11)
[2018-12-23] MEDS: ADVAIR 250/50 DISKUS INH SCH (07:41)
[2018-12-23] MEDS ORDERED: PREDNISONE PO ONE (08:35)
[2018-12-23 08:38] LABS: BASO# 0.02 X1000 (0.0-0.2); BASO% 0.1 % (0.0-0.8); HEMATOCRIT 25.4 % (37.0-47.0); HEMOGLOBIN 7.8 g/dL (12.0-16.0); IMM GRAN# 0.57 X1000 (0.0-0.04); IMM GRAN% 2.1 % (0.0-0.5); LYMPH# 1.87 X1000 (1.2-3.4); LYMPH% 6.9 % (20.5-51.1); MCH 32.5 PG (27-31); MCHC 30.7 g/dL (33-37); MCV 105.8 FL (81-99); MONO# 1.88 X1000 (0.11-0.59); MPV 11.4 FL (7.4-10.4); NEUT# 22.68 X1000 (1.4-6.5); NEUT% 83.9 % (42.2-75.2); PLT 186 X1000 (130-400); RDW 16.1 % (11.5-14.5); WBC 27.02 X1000 (4.8-10.8)
[2018-12-23 08:46] LABS: ALB/GLOB RATIO 1.6; ALBUMIN 3.2 g/dL (3.5-5.0); CALCIUM 8.9 mg/dL (8.8-10.2); CREATININE 1.2 mg/dL (0.5-0.9); POTASSIUM 3.7 mmol/L (3.5-5.1); TOTAL BILIRUBIN 0.2 mg/dL (0.20-1.00); TOTAL PROTEIN 5.2 g/dL (6.3-8.3)
--- NOTE | 2018-12-23 08:46 | HEMO/ONC PROGRESS NOTE ---
DATE: 12/23/2018 SUBJECTIVE: The patient continues to have intermittent shortness of breath. The patient continues to have some dysphagia. The patient denies any fever or chills. Denies any vomiting. OBJECTIVE: Vital Signs: Temperature 98.1, heart rate 89, respiratory rate 17, blood pressure 147/89, saturation 90% on nasal cannula. General: The patient is awake, lying in bed. No acute distress noted. HEENT: Anicteric. Pupils PERRLA. Mucous membranes moist. Cardiovascular: S1, S2. Regular rate and rhythm. Chest: Bilateral breath sounds diminished bilaterally. Abdomen: Soft, nontender. Bowel sounds present in all 4 quadrants. Neurologic: Alert and oriented x3. No focal deficits noted. LABORATORY DATA:WBC 27.05, H/H 7.8/25.4, Platelets 186, Potassium 3.7. ASSESSMENT AND PLAN: 1. Leukocytosis due to a combination of reactive process/myelodysplastic syndrome/ MPD: White blood cell count slowly trending downward. Continue to just monitor at this time. 2. Essential thrombocytosis: Platelet counts continue to be stable. Just continue to monitor. Continue Anagrelide and Hydrea. 3. Acute exacerbation of chronic obstructive pulmonary disease: Shortness of breath slowly improving. Continue recommendations per medical team. 4. Dysphagia: The patient will be treated for Maren, esophagitis and reflux. Continue recommendations per Gastroenterology. 5. Supportive care: Continue physical therapy. The patient to continue to get up as much as possible. Dictated by ROSANNA Bueno for Jose Antonio Ortiz MD cc: ROSANNA Bueno MD Scott A. Matthews, MD [facility]
[2018-12-23] MEDS ORDERED: PREDNISONE PO SCH (09:00)
[2018-12-23 09:30] LABS: BANDS 4 % (0-1); LYMPHS 6 % (21-51); MONO 5 % (1-9); SEGS 85 % (42-75)
[2018-12-23 09:31] LABS: STOMATOCYTES 1+
[2018-12-23] MEDS: LOVENOX SUBQ SCH (10:04)
[2018-12-23] MEDS: WELLBUTRIN XL PO SCH (10:04)
[2018-12-23] MEDS: MYCOSTATIN SUSP PO SCH ×3 (10:04→18:00)
[2018-12-23] MEDS: OMNICEF PO SCH ×2 (10:04→19:40)
[2018-12-23] MEDS: ASPIRIN PO SCH (10:05)
[2018-12-23] MEDS: DOXYCYCLINE PO SCH ×2 (10:05→19:39)
[2018-12-23] MEDS: NORVASC PO SCH (10:06)
[2018-12-23] MEDS: AGRYLIN PO SCH (10:08)
[2018-12-23 19:28] VITALS: BP 151/50
--- NOTE | 2018-12-24 08:12 | DISCHARGE SUMMARY ---
ADMISSION DATE: 12/17/2018 DISCHARGE DATE: 12/23/2018 ADMISSION DIAGNOSES: 1. Leukocytosis. 2. Cough. 3. Congestion. 4. Wheezing. 5. Weakness. DISCHARGE DIAGNOSES: 1. Acute exacerbation of chronic obstructive pulmonary disease. 2. Gram negative pneumonia, cultures pending. 3. Leukocytosis, likely secondary to a combination of underlying bone marrow pathology and reactivity. 4. Dysphagia/odynophagia, likely secondary to Maren esophagitis. 5. Hrsrt-zw-jqmudpv kidney disease. 6. Hyperkalemia, resolved. 7. Hypoxemia, stable. 8. Depression, present on arrival. 9. Hypertension, present on arrival. 10. Thrombocytosis, present on arrival. 11. Hypogammaglobulinemia, present on arrival. 12. Hyperglycemia, steroid-induced. 13. Profound weakness, improving. CONSULTATIONS: 1. Dr. Jose Antonio Ortiz with Hematology and Oncology was consulted for further evaluation and management of leukocytosis in the setting of underlying thrombocytosis. 2. Dr. Fong with Gastroenterology was consulted for further evaluation and management of dysphagia/odynophagia. PROCEDURES: CT scan of the chest, abdomen, and pelvis was performed on 12/17/2018, which revealed emphysematous changes. Small bilateral pleural effusions with adjacent dependent/compressive atelectasis. No discrete pneumonia. Distended stomach with debris and fluid. No small bowel obstruction. Constipation. Colonic diverticulosis. No discrete diverticulitis. No abscess. No free air. Extensive atherosclerotic calcifications noted similar to prior. HISTORY AND PHYSICAL EXAMINATION: See admit note. PHYSICAL EXAMINATION PRIOR TO DISCHARGE: Vital signs: Temperature 97.8 degrees. Heart rate 83. Respirations 20. Blood pressure is 151/50. General: Chronically ill-appearing, no acute distress. Cardiovascular: Regular rate and rhythm. No significant murmurs, rubs, or gallops. Pulmonary: Prolonged expiratory phase. Minimal crackles at bilateral bases. Reasonable air movement. Abdomen: Soft. Nontender, nondistended. Positive bowel sounds. Extremities: Moves all extremities well. No significant clubbing, cyanosis, or edema. Dermatologic: Evaluation reveals no evidence of rash. Multiple ecchymoses are present. LABORATORY DATA: Prior to discharge, white blood cell count 27.02, hemoglobin 7.8, hematocrit 25.7, platelet count 186,000. Sodium 146. Potassium 3.7. Chloride 114. Bicarb 22. BUN 35. Creatinine 1.2. Glucose 86. Calcium 8.9. Total bilirubin 0.20. Total protein 5.2. Albumin 3.2. Alkaline phosphatase 56. AST 13. ALT 22. HOSPITAL COURSE: The patient was admitted as per history and physical examination. Hospital course per condition is as follows. 1. Acute exacerbation of chronic obstructive pulmonary disease - Upon admission, patient was noted to have profound shortness of breath. Attempted outpatient management on several occasions in early, 2018. Unfortunately, the patient failed these therapies. Patient was admitted, placed on IV antibiotics, IV Solu-Medrol, and bronchodilators. The patient tolerated this very well. Throughout hospitalization, the patient's steroids were slowly decreased. At time of discharge, patient was tolerating p.o. Patient will be discharged home with cefdinir, doxycycline, prednisone taper, and DuoNeb. We will follow her clinical course as an outpatient. 2. Gram-negative pneumonia - The patient's sputum cultures are positive for gram negative rods. With the patient's significant improvement clinically, we will discharge patient home on doxycycline and Cefdinir therapy. We will follow up cultures to confirm sensitivity. 3. Leukocytosis - As described above, this likely is a consequence of underlying bone marrow pathology and acute illness. Initially, patient's white blood cell count was 48,000. This had decreased to 27,000 at discharge. We will continue to follow this along with Dr. Ortiz as an outpatient. 4. Acute shortness of breath - While hospitalized, patient experienced several episodes of acute shortness of breath with exertion. The patient had received a considerable amount of IV fluids secondary to her renal failure. It was felt this likely was the source of her shortness of breath. The patient was treated with Lasix therapy. Her overall condition improved considerably. At time of discharge, patient's pulmonary status was approaching baseline. We will need to follow her pulmonary status as an outpatient and determine if as- needed Lasix is appropriate. 5. Dysphagia/odynophagia - As above, Dr. Fong was consulted. EGD has recommended, but after her pulmonary status is stabilized. The patient will be discharged home on a soft diet. We will continue nystatin 5 mL 4 times daily for 10 days. We will plan followup with Dr. Fong and EGD evaluation once able. 6. Ctdhg-pn-bvvzzra kidney disease - Upon admission, patient's creatinine was noted to be 1.6. Potassium also increased through hospitalization. Patient was treated with IV fluids. At time of discharge, creatinine was 1.2. 7. Hyperkalemia - As above, this likely was a consequence of patient's renal dysfunction. With IV hydration and Kayexalate, we achieved improvement. At time of discharge, potassium was 3.7. 8. Hypoxemia - At baseline, patient requires oxygen, primarily at night. While hospitalized, she required it consistently. The patient will be discharged home with oxygen routinely. Patient is to decrease this for saturations greater than 90%. 9. Depression - The patient was maintained on Wellbutrin while hospitalized with adequate response. 10. Hypertension. Patient's blood pressure remained reasonably controlled on her home regimen. 11. Thrombocytosis - The patient has longstanding disease. She was continued on Hydrea and anagrelide therapy. Counts remained stable. 12. Immunodeficiency/hypogammaglobulinemia - This is historical. We will remain aware, especially in the setting of recurrent infection. 13. Hyperglycemia - This likely is steroid associated. The patient was treated with sliding scale insulin while hospitalized. The patient is on a steroid taper. For now, we will follow this. 14. Profound weakness - The patient worked with physical therapy while hospitalized. At time of discharge, patient states she was able to ambulate without assistance in the patel. We will discharge patient home. We will consider home physical therapy. DISCHARGE CONDITION: Stable. DISPOSITION: Discharge to home. DISCHARGE MEDICATIONS: 1. Acetaminophen 650 mg every 4 hours as needed. 2. Omnicef 300 mg twice daily for 4 additional days. 3. Doxycycline 100 mg twice daily for 4 additional days. 4. Hydrea 500 mg on Thursday, Thursday, and Thursday. 5. Nystatin 5 mL 4 times daily for 10 days. 6. Prednisone taper starting at 40 mg day 1 and decreasing 5 mg daily until off. 7. BuSpar 5 mg 3 times daily as needed. 8. Prilosec 40 mg daily. 9. Aspirin 81 mg daily. 10. Atenolol 50 mg at bedtime. 11. Amlodipine 5 mg twice daily. 12. Advair 250/50 one puff twice daily. 13. DuoNeb 4 times daily. 14. Anagrelide 2 mg twice daily. 15. Bupropion XL 300 mg daily. 16. B-complex vitamin. FOLLOWUP: The patient is to follow up with me in approximately 1 week. cc: Alek Lopes MD
== END 2018-12-23 20:24 | disposition home or self-care (01) | DRG 190 ==
LOC: DIRADM 17:12 → 3N 17:38
PROVIDERS: ADMIT Internal Medicine; ATTEND Internal Medicine
CPT/HCPCS: 71020; 71046; 71250; 74176; 80048; 80053; 81001; 82550; 82948; 83615; 84484; 85025; 87040; 87070; 87077; 87081; 87186; 87205; 87430; 93005; 93010; 94640; 94761; 94799; 97162; 97530; A9270; J0696; J1650; J1815; J2920; J2930; J7030; J7040; J7050; J7506; J7512; S0176; XXXXX

== ENCOUNTER 2019-02-18 17:15 | Inpatient (IN) ==
[2019-02-18] MEDS ORDERED: BUSPAR PO PRN (18:47)
[2019-02-18 20:24] LABS: BASO# 0.04 X1000 (0.0-0.2); BASO% 0.3 % (0.0-0.8); EOS% 1.3 % (0.0-10.0); HEMATOCRIT 29.6 % (37.0-47.0); HEMOGLOBIN 9.2 g/dL (12.0-16.0); IMM GRAN# 0.04 X1000 (0.0-0.04); IMM GRAN% 0.3 % (0.0-0.5); LYMPH# 2.46 X1000 (1.2-3.4); LYMPH% 16.1 % (20.5-51.1); MCH 32.3 PG (27-31); MCHC 31.1 g/dL (33-37); MCV 103.9 FL (81-99); MONO# 1.07 X1000 (0.11-0.59); MPV 11.8 FL (7.4-10.4); NEUT# 11.48 X1000 (1.4-6.5); PLT 167 X1000 (130-400); RBC 2.85 XMIL (4.2-5.4); RDW 15.3 % (11.5-14.5); WBC 15.29 X1000 (4.8-10.8)
[2019-02-18] MEDS: ADVAIR 250/50 DISKUS INH SCH (20:30)
[2019-02-18] MEDS: DUONEB (A & A) INH SCH (20:32)
[2019-02-18 20:47] LABS: AGAP 15; ALB/GLOB RATIO 0.9; ALBUMIN 3.2 g/dL (3.5-5.0); ALKALINE PHOSPHATASE 105 U/L (32-104); BUN 74 mg/dL (8-22); C REACTIVE PROT QUANT 159.27 mg/L (0.00-5.00); CALCIUM 8.4 mg/dL (8.8-10.2); CHLORIDE 102 mmol/L (98-107); COSMO 302; CREATININE 3.5 mg/dL (0.5-0.9); ESTIMATED GFR 13; GLUCOSE 114 mg/dL (70-104); GOT 18 U/L (10-30); GPT 11 U/L (10-36); POTASSIUM 3.7 mmol/L (3.5-5.1); SODIUM 140 mmol/L (136-145); TCO2 23 mmol/L (25-35); TOTAL BILIRUBIN < 0.15 mg/dL (0.20-1.00); TOTAL PROTEIN 6.6 g/dL (6.3-8.3)
[2019-02-18 21:11] LABS: SED RATE 147 mm/hr (0-20)
[2019-02-18] MEDS: AGRYLIN PO SCH (21:32)
[2019-02-18] MEDS: TENORMIN PO SCH (21:33)
[2019-02-18] MEDS: NS 1,000 ML IV SCH (21:34)
--- NOTE | 2019-02-18 22:03 | HISTORY AND PHYSICAL ---
PRIMARY CARE PHYSICIAN: Dr. Alek Lopes. CHIEF COMPLAINT: Acute renal failure. HISTORY OF PRESENT ILLNESS: A 78-year-old white female with a very complicated past medical history, presents for evaluation of above-mentioned symptoms. Pertinent history of present illness began in November. At that time, the patient was admitted to the hospital with an acute exacerbation of COPD and associated acute on chronic kidney failure. The patient required prolonged hospitalization but ultimately was discharged home on 12/17/2018. Post hospitalization, the patient has experienced intermittent lower extremity edema. She also has been treated for persistent pulmonary symptoms. She has underlying essential thrombocytosis, being followed by Dr. Ortiz. Hydrea and anagrelide dosing has been adjusted as an outpatient. The patient was seen in Dr. Ortiz's office yesterday. CBC returned largely stable. Creatinine, however, has increased to 4.0. Dr. Ortiz consulted me, and inpatient treatment was arranged. Of note, the patient has had significant fatigue, lower extremity weakness, and cervical muscle spasms. She denies fevers, chills, nausea, vomiting, cough, congestion, wheezing, change in bowel movements, or change in urination including dysuria, hematuria, pyuria, and frequency. PAST MEDICAL HISTORY: 1. Anemia. 2. Carotid artery disease. 3. Cholelithiasis status post laparoscopic cholecystectomy in 2017. 4. Chronic kidney disease with creatinine between 1.4 and 1.6. 5. Chronic obstructive pulmonary disease. 6. Diverticulosis. 7. Depression. 8. Diabetes. 9. Reflux disease. 10. Hypertension. 11. Hypertriglyceridemia. 12. Essential thrombocytosis. 13. Gout. 14. Hiatal hernia. 15. Hyperlipidemia. 16. Chronic hypoxemia requiring nocturnal oxygen. 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 18. Low back pain. 19. Menopause. 20. Intermittent muscle spasms. 21. Longstanding history of tobacco use. 22. Osteoarthritis. 23. Peripheral artery disease. 24. History of a pulmonary nodule. 25. Intermittent dizziness. 26. History of stroke in 2001. 27. Urinary incontinence. 28. Uterovaginal prolapse status post BOSSMAN/BSO. CURRENT MEDICATIONS: 1. Advair 500/50 one puff twice daily. 2. Anagrelide 2 mg in the morning and 1.5 mg in the evening. 3. Atenolol 50 mg at bedtime. 4. BuSpar 5 mg 3 times daily as needed. 5. Colcrys as needed. 6. Colace 100 mg daily as needed. 7. Guaifenesin 400 mg 3 times daily as needed. 8. DuoNeb 3 times daily. 9. Nexium 40 mg daily. 10. ProAir HFA 1 to 2 puffs every 4 to 6 hours as needed. 11. Phenergan as needed. 12. Turmeric 500 mg daily as needed. 13. Tylenol 325 mg every 6 hours as needed. 14. Valacyclovir as needed for fever blisters. 15. Vitamin B complex daily. 16. Vitamin C 500 mg daily. 17. Wellbutrin 300 mg daily. ALLERGIES: The patient states she is allergic to Crestor, Demerol, fenofibrate, Keflex, Klonopin, pravastatin, and prednisone. SOCIAL HISTORY: The patient is a former smoker, having started in her early 30s. She averaged 1 pack per day until recently. She rarely uses alcohol. She denies illicit drug use. 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 She enjoys shopping and reading. She exercises as tolerated. FAMILY HISTORY: The patient's father passed at age 66 secondary to complications of prostate cancer and pulmonary thromboembolism. The patient's mother passed at age 62 secondary to complications of acute myocardial infarction/stroke; she had a history of diabetes, hypertension, and hyperlipidemia. REVIEW OF SYSTEMS: A 12-point review of systems was performed. Pertinent positives and negatives are noted in History of Present Illness. PHYSICAL EXAMINATION: VITAL SIGNS: Temperature 97.8 degrees, heart rate 83, respirations 20. Blood pressure is 151/50. GENERAL: Chronically ill appearing. No acute distress. HEENT: Normocephalic, atraumatic. Pupils equal, round, react to light. Extraocular muscles intact. Sclerae anicteric. [place] conjunctivae. Oral and nasopharynx clear without exudate. NECK: Supple. No lymphadenopathy. No thyromegaly. No bruits auscultated. CARDIOVASCULAR: Regular rate and rhythm. No significant murmurs, rubs, or gallops. PULMONARY: Clear to auscultation bilaterally. Prolonged expiratory phase. ABDOMEN: Soft, nontender, nondistended. Positive bowel sounds. EXTREMITIES: Moves all extremities well. No significant clubbing, cyanosis, or edema. NEUROLOGIC: Cranial nerves 2 through 12 grossly intact. Motor and sensory grossly intact. PSYCHOLOGIC: Appropriate. LABORATORY DATA: White blood cell count 15.29, hemoglobin 9.2, hematocrit 29.6, platelet count 169,000. Sedimentation rate and CRP are pending. CMP is pending. ASSESSMENT AND PLAN: A 78-year-old white female with a complicated past medical history, presents in consultation from Dr. Ortiz secondary to acute renal failure. The patient has been treated with diuretics recently but is not currently taking, per report. Certainly hypovolemic/prerenal state is highest on the differential of renal failure. We also will consider medications. Anatomical abnormalities will also be on the differential. The patient will be admitted to the hospital for full evaluation and management of this condition. 1. Admit to General Medicine. 2. Acute renal failure. -- As above, differential diagnosis is broad. We will check a urinalysis as well as a sedimentation rate and CRP. We will start the patient on aggressive, but cautious, hydration. Depending on the patient's response and laboratory findings, we will consider whether renal ultrasound and nephrology consultation are warranted. 3. Chronic obstructive pulmonary disease. -- We will continue the patient on home regimen of bronchodilators. We will encourage incentive spirometry and aspiration precautions. 4. Depression. -- We will continue patient on Wellbutrin and as-needed BuSpar. 5. Diabetes. -- This largely is exacerbated with steroid intervention. We will check a glucose immediately. We will determine if sliding scale insulin is appropriate. 6. Reflux disease. -- We will continue the patient on a proton pump inhibitor. 7. Essential thrombocytosis. -- The patient is currently being treated with anagrelide. We will continue her current dosing. 8. Hypoxemia. -- We will continue the patient on oxygen per protocol. 9. Profound weakness and fatigue. -- This likely is a consequence of her acute illness as well as multiple chronic illnesses. We will treat acute renal failure as noted above. 10. Fluid, electrolytes, nutrition. -- We will monitor electrolytes. Normal saline at 50 mL/hr. Regular diet. 11. Prophylaxis. The patient will be placed on SCDs. cc: Alek Lopes MD
[2019-02-19] MEDS: TYLENOL PO PRN (04:36)
[2019-02-19] MEDS: PRILOSEC PO SCH (06:31)
[2019-02-19 06:54] LABS: URINE SOURCE CLEAN CATCH
[2019-02-19 06:57] LABS: BILIRUBIN URINE NEGATIVE (NEGATIVE); BLOOD URINE MODERATE (NEGATIVE); COLOR ORANGE; GLUCOSE URINE NEGATIVE (NEGATIVE); KETONE URINE NEGATIVE (NEGATIVE); LEUKOCYTES URINE LARGE (NEGATIVE); NITRITE URINE NEGATIVE (NEGATIVE); PROTEIN URINE 70 mg/dL (NEGATIVE); SP GRAVITY URINE 1.007; TURBIDITY URINE TURBID (CLEAR); UROBILINOGEN URINE NORMAL (NORMAL)
[2019-02-19 07:26] LABS: UR EPITHELIAL CELLS <10 /HPF (<10); URINE BACTERIA 4+ /HPF; URINE WBC TNTC /HPF (<10)
[2019-02-19 07:27] LABS: URINE YEAST NONE SEEN
[2019-02-19 07:49] LABS: CALCIUM 8.1 mg/dL (8.8-10.2); CREATININE 2.9 mg/dL (0.5-0.9); POTASSIUM 3.9 mmol/L (3.5-5.1)
[2019-02-19] MEDS: WELLBUTRIN XL PO SCH (08:19)
[2019-02-19] MEDS: VICON-C PO SCH (08:19)
[2019-02-19] MEDS: DUONEB (A & A) INH SCH ×3 (09:03→21:12)
[2019-02-19] MEDS: ADVAIR 250/50 DISKUS INH SCH ×2 (09:03→21:12)
--- NOTE | 2019-02-19 10:34 | PROGRESS NOTE ---
DATE: 02/19/2019 SUBJECTIVE: Upon my arrival this morning, patient was sitting upright. She noted her condition to be largely unchanged from yesterday. The patient notes a profound weakness. She notes a pain in bilateral shoulders and weakness in the proximal muscles of the lower extremity. Her urine output has been somewhat decreased. She denies fevers, chills, nausea, vomiting, shortness of breath, or chest discomfort. OBJECTIVE: Vital Signs: T-max 98.9 degrees, heart rate 82 to 95, respirations 16 to 19, blood pressure 142-180/40-56. General: Chronically ill appearing, no acute distress. Cardiovascular: Regular rate and rhythm. No significant murmurs, rubs, or gallops. Pulmonary: Prolonged expiratory phase. Adequate air movement. Abdomen: Soft, nontender, nondistended. Positive bowel sounds. Extremities: Moves all extremities well. No significant clubbing, cyanosis, or edema. Dermatologic: Evaluation reveals no evidence of rash. LABORATORY DATA: Sodium 137, potassium 3.9, chloride 106, bicarbonate 19. BUN 65, creatinine 2.9, glucose 89, and calcium 8.1. CRP 159.27. Sedimentation rate 147. Urinalysis reveals moderate blood, too many to count white blood cells, 4+ bacteria. ASSESSMENT AND PLAN: 1. Acute renal failure--patient is achieving some improvement with intravenous hydration. The question is raised as to additional potential etiologies. In the setting of grossly elevated inflammatory markers, the potential for underlying vasculitis will need to be considered. The patient's current symptoms are very consistent with polymyalgia rheumatica. A giant-cell arteritis, although unlikely in the renal arteries, may also be playing a role. We will continue intravenous fluids for acute renal failure. We will add prednisone for the possibility of an autoimmune issue. We will plan to consult Rheumatology once available. 2. Urinary tract infection--the patient's urinalysis is grossly abnormal. We will start patient on Rocephin therapy. We will check blood cultures times 2, especially in the setting of increased inflammatory markers. We will follow culture data. 3. Proximal muscle pain with possible weakness--at this point, in the setting of grossly elevated inflammatory markers, I am concerned the patient may be suffering from polymyalgia rheumatica. We will start patient on prednisone 40 mg on a daily basis. Once renal function has improved and giant-cell arteritis has been ruled out, we will consider decreasing the dosage considerably. We will consult Rheumatology once available. 4. Left great toe pain--this is a new diagnosis, possibly gout associated. We will check a uric acid. We will start prednisone as noted. 5. Chronic obstructive pulmonary disease--we will continue patient on bronchodilators, incentive spirometry, and aspiration precautions. We will add prednisone as described above. She is currently minimally symptomatic. 6. Depression--we will continue patient on Wellbutrin and as-needed BuSpar. We will monitor patient for evidence of steroid-induced psychosis. 7. Diabetes--the patient's blood sugars will likely increase associated with steroid intervention. We will start sliding scale insulin. 8. Reflux disease--we will continue patient on a proton pump inhibitor. 9. Essential thrombocytosis--the patient's levels are stable with anagrelide. We will continue home dosage. 10. Hypoxemia--we will continue oxygen per protocol. 11. Profound weakness and fatigue--as above, we will treat the possibility of underlying polymyalgia rheumatica. 12. Disposition--at this point, patient continues to require group home care in a hospital setting. We will plan discharge home once appropriate. cc: Alek Lopes MD
[2019-02-19] MEDS: HUMALOG SUBQ SCH ×3 (12:23→23:12)
[2019-02-19] MEDS: PREDNISONE PO SCH (12:27)
[2019-02-19] MEDS: ROCEPHIN 1 GM in NS 50 ML IV SCH (12:28)
[2019-02-19] MEDS: NS 1,000 ML IV SCH (14:21)
[2019-02-19] MEDS: TENORMIN PO SCH (21:16)
[2019-02-19] MEDS: AGRYLIN PO SCH (21:16)
[2019-02-20] MEDS: PRILOSEC PO SCH (06:30)
[2019-02-20] MEDS: HUMALOG SUBQ SCH ×3 (06:52→16:29)
[2019-02-20 07:08] LABS: CALCIUM 8.3 mg/dL (8.8-10.2); CREATININE 2.4 mg/dL (0.5-0.9); POTASSIUM 4.3 mmol/L (3.5-5.1)
[2019-02-20] MEDS: VICON-C PO SCH (08:54)
[2019-02-20] MEDS: WELLBUTRIN XL PO SCH (08:54)
[2019-02-20] MEDS: PREDNISONE PO SCH ×2 (08:56→11:12)
[2019-02-20] MEDS: ROCEPHIN 1 GM in NS 50 ML IV SCH (09:06)
[2019-02-20] MEDS: DUONEB (A & A) INH SCH ×3 (09:52→20:39)
[2019-02-20] MEDS: NS 1,000 ML IV SCH (11:11)
--- NOTE | 2019-02-20 13:23 | PROGRESS NOTE ---
DATE: 02/20/2019 SUBJECTIVE: Upon my arrival this morning, patient was sitting upright in bed. The patient states, overall, she feels much better than yesterday. Yesterday, treatment for underlying urinary tract infection was initiated. Steroids were also initiated secondary to grossly elevated inflammatory markers. The patient does note decreasing pain in her shoulders and lower extremities. She also notes decreasing pain in her right great toe. She denies fevers, chills, nausea, vomiting, shortness of breath, or chest discomfort. OBJECTIVE: T-max 98.1 degrees, heart rate 88-100, respirations 16-20, blood pressure 153 to 172 over 51 to 82.General: Well nourished, well developed, chronically ill-appearing, no acute distress. Cardiovascular: Regular rate and rhythm with no significant murmurs, rubs, or gallops. Pulmonary: Clear to auscultation bilaterally. Abdomen: Soft and nontender, nondistended. Positive bowel sounds. Extremities: Moves all extremities well. No significant clubbing, cyanosis, or edema. Dermatologic evaluation reveals no evidence of rash. LABORATORY DATA: Sodium 141, potassium 4.3, chloride 108, bicarbonate 19, BUN 59, creatinine 2.4, glucose 148, calcium 8.3. ASSESSMENT AND PLAN: 1. Acute renal failure. Patient has achieved improvement in creatinine, although not back to baseline. As described yesterday, question is raised as to the etiology. We will continue IV fluids. We will continue steroids as described below. We will continue to follow serial laboratory evaluations. Urine output is adequate. 2. Urinary tract infection. The patient's urine culture thus far is growing a gram-negative dianne. We will continue Rocephin therapy for now. We will follow up urine and blood cultures. 3. Proximal muscle pain with possible weakness. I remain very concerned. This likely represents polymyalgia rheumatica. Inflammatory markers are grossly elevated. As described on previous notes, I also concerned patient could have giant-cell arteritis affecting her renal arteries. We will continue prednisone 40 mg on a daily basis. We will plan to consult Dr. Oviedo in the a.m. for further rheumatologic evaluation. 4. Left great toe pain. This likely is gout associated. Uric acid is elevated. She has achieved improvement with prednisone therapy. Once renal function has improved, we will plan to consider allopurinol therapy. 5. Left chronic obstructive pulmonary disease. Pulmonary status remains stable with bronchodilators, incentive spirometry, and aspiration precautions. 6. Depression. Patient's symptoms are well controlled with Wellbutrin and as-needed BuSpar. 7. Diabetes. Blood sugars have increased since starting steroids. We will cover with sliding scale insulin. 8. Reflux disease. We will continue patient on a proton pump inhibitor. 9. Essential thrombocytosis. Patient is treated with anagrelide therapy. We will continue her current home dosage. 10. Hypoxemia. We will continue oxygen per protocol. 11. Profound weakness. We will treat a possible underlying polymyalgia rheumatica. We will follow this. DISPOSITION: At this point, patient continues to require [facility] care in a hospital setting. We will plan discharge home once appropriate. cc: Alek Lopes MD
[2019-02-20 13:27] LABS: HEMATOCRIT 29.5 % (37.0-47.0); HEMOGLOBIN 9.2 g/dL (12.0-16.0); MCH 32.3 PG (27-31); MCHC 31.2 g/dL (33-37); MCV 103.5 FL (81-99); MPV 12.2 FL (7.4-10.4); RBC 2.85 XMIL (4.2-5.4); RDW 14.9 % (11.5-14.5); WBC 16.36 X1000 (4.8-10.8)
[2019-02-20] MEDS: ADVAIR 250/50 DISKUS INH SCH ×2 (15:23→20:40)
[2019-02-20] MEDS: TENORMIN PO SCH (21:37)
[2019-02-20] MEDS: AGRYLIN PO SCH (21:37)
[2019-02-21] MEDS: HUMALOG SUBQ SCH ×5 (01:41→22:41)
[2019-02-21] MEDS ORDERED: DUONEB (A & A) INH PRN (05:48)
[2019-02-21] MEDS: PRILOSEC PO SCH (06:44)
[2019-02-21] MEDS: ADVAIR 250/50 DISKUS INH SCH ×2 (07:15→20:20)
[2019-02-21] MEDS: DUONEB (A & A) INH SCH ×3 (07:15→20:20)
[2019-02-21 07:47] LABS: AGAP 11; ALBUMIN 2.9 g/dL (3.5-5.0); ALKALINE PHOSPHATASE 82 U/L (32-104); BUN 46 mg/dL (8-22); CALCIUM 8.1 mg/dL (8.8-10.2); CHLORIDE 115 mmol/L (98-107); COSMO 300; CREATININE 2.1 mg/dL (0.5-0.9); ESTIMATED GFR 23; GLUCOSE 80 mg/dL (70-104); GOT 16 U/L (10-30); GPT 9 U/L (10-36); POTASSIUM 3.8 mmol/L (3.5-5.1); SODIUM 145 mmol/L (136-145); TCO2 19 mmol/L (25-35); TOTAL BILIRUBIN < 0.15 mg/dL (0.20-1.00); TOTAL PROTEIN 5.8 g/dL (6.3-8.3)
[2019-02-21] MEDS: WELLBUTRIN XL PO SCH (08:14)
[2019-02-21] MEDS: PREDNISONE PO SCH (08:15)
[2019-02-21] MEDS: VICON-C PO SCH (08:15)
[2019-02-21] MEDS ORDERED: LOVENOX SUBQ ONE (08:26)
--- NOTE | 2019-02-21 09:13 | Diag Imaging Result Doc PS360 ---
EXAM: CHEST-2 VIEWS HISTORY: shortness of breath TECHNIQUE: Chest two views COMPARISON: 12/17/2018 FINDINGS: The lungs are hyperexpanded with an increased AP diameter to the chest. Interval development of bilateral infiltrates in the mid and lower lungs. There is also small left pleural effusion and there is basilar atelectasis. No cardiomegaly. IMPRESSION: Emphysema with bilateral infiltrates and a small left pleural effusion Electronically signed by Davon Scanlon 02/21/2019 9:11 AM
[2019-02-21] MEDS: ROCEPHIN 1 GM in NS 50 ML IV SCH (13:18)
[2019-02-21] MEDS ORDERED: NS 500 ML ONE (18:08)
--- NOTE | 2019-02-21 21:28 | PROGRESS NOTE ---
DATE: 02/21/2019 SUBJECTIVE: Over the course of the last 24 hours, patient states she has done reasonably well with exception of 1 episode of acute shortness of breath. This occurred early this morning. The patient was treated with oxygen supplementation. Bronchodilator was provided. Upon my arrival this morning, IV fluids were discontinued. Through the course of the day today, patient has done reasonably well. She continues to have mild shortness of breath, although this has improved from this morning. She denies fevers, chills, nausea, vomiting, or chest discomfort. Her shoulder pain has improved. Her energy level has improved but remains low. OBJECTIVE: T-max 98.1 degrees, heart rate 84 to 92, respirations 18 to 23, blood pressure 136 to 177 over 41 to 76.General: Chronically ill appearing. No acute distress. Cardiovascular: Regular rate and rhythm. No significant murmurs, rubs, or gallops. Pulmonary: Minimal crackles at bilateral bases. Abdomen: Soft, nontender, nondistended. Positive bowel sounds. Extremities: Moves all extremities well. No significant clubbing, cyanosis, or edema. Dermatologic: Evaluation reveals no evidence of rash. LABORATORY DATA: Sodium 145, potassium 3.8, chloride 115, bicarb 19, BUN 46, creatinine 2.1, glucose 80, calcium 8.1, total bilirubin 0.15, total protein 5.8, albumin 2.9, alkaline phosphatase 82, AST 16, ALT 9. ASSESSMENT AND PLAN: 1. Acute renal failure-patient has achieved improvement, although not resolution of her underlying renal failure. Unfortunately, in the setting of acute shortness of breath, intravenous fluids have been held. We will reevaluate renal function in the a.m. 2. Acute shortness of breath-chest x-ray from this morning suggested emphysema with bilateral infiltrates and a small left pleural effusion. Examination is more consistent with excess volume. There has been no evidence of fevers, chills, cough, congestion, or wheezing. At this point, we will hold IV fluids. We will hold off on diuresis secondary to acute renal failure. We will schedule an echocardiogram. 3. Urinary tract infection-urine culture grew Klebsiella pneumoniae. We will continue Rocephin therapy. 4. Proximal muscle pain with questionable lower extremity weakness-at this point, I am concerned this represents polymyalgia rheumatica. Inflammatory markers are grossly elevated. I also remain concerned that the acute renal failure is of questionable origin. Giant-cell arteritis remains on the differential. We will continue prednisone daily. We will consult Dr. Oviedo for further rheumatologic evaluation. 5. Left great toe pain-this likely is gout associated. Uric acid returned significantly elevated. We will continue prednisone therapy. Once renal function has returned to baseline, we will consider adding allopurinol therapy. 6. Chronic obstructive pulmonary disease-we will continue patient on bronchodilators, incentive spirometry, and aspiration precautions. Symptoms are controlled. 7. Depression-we will continue patient on Wellbutrin and as needed BuSpar. 8. Diabetes-we will cover patient with sliding scale insulin. Historically, with steroids, blood sugars have increased. 9. Reflux disease-we will continue patient on a proton pump inhibitor. 10. Essential thrombocytosis-we will continue patient on anagrelide therapy. 11. Hypoxemia-we will continue oxygen per protocol. 12. Profound weakness- we will continue treatment of each of those conditions as described above. We will start physical therapy once appropriate. 13. Disposition-at this point, patient continues to require [facility] care in a hospital setting. We will plan discharge home once appropriate. cc: Alek Lopes MD
[2019-02-21] MEDS: TENORMIN PO SCH (22:41)
[2019-02-21] MEDS: AGRYLIN PO SCH (22:41)
[2019-02-22 06:35] LABS: BASO# 0.01 X1000 (0.0-0.2); HEMATOCRIT 31.5 % (37.0-47.0); HEMOGLOBIN 9.7 g/dL (12.0-16.0); IMM GRAN# 0.24 X1000 (0.0-0.04); LYMPH# 2.13 X1000 (1.2-3.4); LYMPH% 8.5 % (20.5-51.1); MCH 32.4 PG (27-31); MCHC 30.8 g/dL (33-37); MCV 105.4 FL (81-99); MONO# 2.13 X1000 (0.11-0.59); MONO% 8.5 % (1.7-9.3); NEUT# 20.44 X1000 (1.4-6.5); PLT 219 X1000 (130-400); RBC 2.99 XMIL (4.2-5.4); RDW 15.3 % (11.5-14.5); WBC 24.95 X1000 (4.8-10.8)
[2019-02-22 06:57] LABS: LYMPHS 10 % (21-51); MONO 8 % (1-9); SEGS 82 % (42-75)
[2019-02-22 07:04] LABS: CALCIUM 8.2 mg/dL (8.8-10.2); CREATININE 1.6 mg/dL (0.5-0.9); POTASSIUM 3.5 mmol/L (3.5-5.1)
[2019-02-22] MEDS: PRILOSEC PO SCH (07:04)
[2019-02-22] MEDS ORDERED: LASIX IV ONE (08:17)
[2019-02-22] MEDS: WELLBUTRIN XL PO SCH (08:47)
[2019-02-22] MEDS: VICON-C PO SCH (08:47)
[2019-02-22] MEDS: PREDNISONE PO SCH (08:48)
[2019-02-22] MEDS: ZOSYN 3.375 GM in NS 50 ML IV SCH ×2 (08:48→18:32)
[2019-02-22] MEDS: ADVAIR 250/50 DISKUS INH SCH ×2 (09:21→20:09)
[2019-02-22] MEDS: HUMALOG SUBQ SCH ×2 (11:21→17:14)
[2019-02-22] MEDS: LOVENOX SUBQ SCH (11:39)
[2019-02-22] MEDS: DUONEB (A & A) INH SCH ×4 (11:45→23:33)
--- NOTE | 2019-02-22 20:48 | PROGRESS NOTE ---
DATE: 02/22/2019 SUBJECTIVE: Upon my arrival this morning, patient was noted to have increased agitation, as well as increased work of breathing. The patient states she did not rest well overnight. She did note having some increasing shortness of breath, but denied chest pains or palpitations. The patient was provided a dose of Lasix. With Lasix intervention, patient's pulmonary status stabilized. This evening, patient states she is feeling reasonably well. Her shortness of breath has returned approaching her baseline. She denies significant cough, congestion or wheezing. Additionally, patient notes her shoulder pain to be improved. Lower extremity weakness is stable, but also improving. She denies fevers, chills, nausea or vomiting. OBJECTIVE: Vital Signs: T-max 98.4, heart rate 89-107, respirations 18-20, blood pressure 151- 180 over 46-67. General: Chronically ill appearing, no acute distress. Cardiovascular: Regular rate and rhythm. No significant murmurs, rubs, or gallops. Pulmonary: Minimal crackles at bilateral bases. Distant breath sounds. Adequate air movement. Abdomen: Soft, nontender, nondistended. Positive bowel sounds. Extremities: Moves all extremities well. No significant clubbing, cyanosis, or edema. Dermatologic: Evaluation reveals no evidence of rash. LABORATORY DATA: White blood cell count 24.95, hemoglobin 9.7, hematocrit 31.5, platelet count 219,000. Sodium 145, potassium 3.5, chloride 112, bicarb 20, BUN 40, creatinine 1.6, glucose 76, calcium 8.2. ASSESSMENT AND PLAN: 1. Acute renal failure-the patient has achieved significant improvement. As described above, the patient required Lasix intervention this morning secondary to increasing shortness of breath. We will follow renal function in the setting of diuretics. We will remain aware that the etiology of renal failure remains queried. 2. Acute shortness of breath-as above, patient was treated with diuresis today. Rocephin was changed to Zosyn for the possibility of aspiration. Echocardiogram was scheduled, but results are pending. We will plan to recheck a chest x-ray today. Shortness of breath is improving. 3. Urinary tract infection-urine cultures grew Klebsiella pneumonia. We will continue Zosyn therapy. 4. Possible muscle pain with questionable lower extremity weakness- inflammatory markers upon admission were grossly elevated. I suspect this represents polymyalgia rheumatica. In the setting of renal dysfunction, we will also need to rule out associated giant-cell arteritis. Dr. Oviedo was consulted today. We will defer further steroid management to his discretion. 5. Left great toe pain-this likely was gout associated. Uric acid did return significantly elevated, with steroid intervention, pain has improved. We will plan to consider adding allopurinol therapy as an outpatient as renal function improves. 6. Chronic obstructive pulmonary disease-we will continue patient on bronchodilators, incentive spirometry, and aspiration precautions. She does not have significant wheezing on examination today. 7. Depression-we will continue patient on Wellbutrin and as needed BuSpar. Symptoms have increased slightly associated with steroid intervention. We will remain aware. 8. Diabetes-blood sugars have increased with steroids. We will continue sliding scale insulin. 9. Reflux disease-we will continue patient on a proton pump inhibitor. We will encourage aspiration precautions. 10. Essential thrombocytosis-we will continue patient on anagrelide therapy. Platelet count remains acceptable. 11. Hypoxemia-we will continue oxygen per protocol. 12. Profound weakness-we will treat patient as described above. Once able, we will initiate physical therapy. 13. Disposition-at this point, patient continues to require [facility] care in a hospital setting. We will plan discharge home once appropriate. cc: Alek Lopes MD
[2019-02-23] MEDS: HUMALOG SUBQ SCH ×7 (00:02→23:29)
[2019-02-23] MEDS: AGRYLIN PO SCH ×2 (00:21→23:31)
[2019-02-23] MEDS: TENORMIN PO SCH ×2 (00:22→23:31)
[2019-02-23] MEDS: ZOSYN 3.375 GM in NS 50 ML IV SCH ×5 (00:23→23:57)
[2019-02-23] MEDS: TYLENOL PO PRN (01:18)
[2019-02-23] MEDS: DUONEB (A & A) INH SCH ×6 (03:19→23:25)
[2019-02-23 06:18] LABS: BASO# 0.04 X1000 (0.0-0.2); BASO% 0.1 % (0.0-0.8); EOS# 0.21 X1000 (0.0-0.7); EOS% 0.6 % (0.0-10.0); HEMATOCRIT 27.9 % (37.0-47.0); HEMOGLOBIN 8.7 g/dL (12.0-16.0); IMM GRAN# 0.35 X1000 (0.0-0.04); LYMPH# 0.59 X1000 (1.2-3.4); LYMPH% 1.6 % (20.5-51.1); MCH 32.3 PG (27-31); MCHC 31.2 g/dL (33-37); MCV 103.7 FL (81-99); MONO# 0.91 X1000 (0.11-0.59); MONO% 2.5 % (1.7-9.3); NEUT# 34.05 X1000 (1.4-6.5); NEUT% 94.2 % (42.2-75.2); PLT 242 X1000 (130-400); RBC 2.69 XMIL (4.2-5.4); RDW 15.4 % (11.5-14.5); WBC 36.15 X1000 (4.8-10.8)
[2019-02-23] MEDS: PRILOSEC PO SCH (06:44)
[2019-02-23] MEDS: LOVENOX SUBQ SCH (06:44)
[2019-02-23 07:09] LABS: CALCIUM 7.8 mg/dL (8.8-10.2); CREATININE 2.2 mg/dL (0.5-0.9); POTASSIUM 3.4 mmol/L (3.5-5.1)
[2019-02-23 07:22] LABS: LYMPHS 4 % (21-51); SEGS 96 % (42-75)
[2019-02-23] MEDS: ADVAIR 250/50 DISKUS INH SCH ×2 (07:48→19:08)
--- NOTE | 2019-02-23 08:48 | Diag Imaging Result Doc PS360 ---
CHEST-2 VIEWS - 02/23/2019 INDICATION: hypoxia COMPARISON: 02/21/2019 FINDINGS: There has been significant improvement in the background finding interstitial infiltrates/pulmonary edema. Stable small focal infiltrate at the right upper lobe and left lung base. There are trace pleural effusions stable from prior. Heart size is normal. IMPRESSION: Improvement in the background interstitial pulmonary edema. Electronically signed by Chad Padilla 02/23/2019 8:46 AM
--- NOTE | 2019-02-23 08:54 | ECHO REPORT ---
ORDER DATE: 02/22/2019 INTERPRETING PHYSICIAN: Willie Lucas MD ECHOCARDIOGRAPHIC MEASUREMENTS: 1. Interventricular septum 0.9 cm. 2. Eft ventricular posterior wall 0.8 cm. 3. Diastolic diameter 4.4 cm. 4. Left atrium 3.6 cm. 5. Aorta 2.9 cm. SUMMARY OF THE 2-DIMENSIONAL IMAGIN. Aortic valve leaflets were trileaflet. 2. Pulmonic valve was normal. 3. There is trace pulmonary regurgitation. 4. Tricuspid valve was normal. 5. Mitral valve leaflets are mildly thickened. 6. There is moderate mitral annular calcification. 7. There is moderate mitral regurgitation. 8. Mild pulmonary regurgitation 9. There is moderate tricuspid regurgitation. 10. Peak velocity across the tricuspid valve was 3.7 m/sec. 11. Pulmonary artery systolic pressure of 66 mmHg. 12. There is left atrial enlargement. 13. Peak velocity across the aortic valve less than 2 m/sec. 14. There is no aortic stenosis or regurgitation. 15. Normal left ventricular cavity size. 16. Estimated ejection fraction of 50%. 17. There is anteroseptal hypokinesis. 18. There is small anterior and posterior echo-free space suggestive of pericardial effusion. 19. There is no evidence of tamponade. 20. There is no obvious intracardiac mass or thrombus. cc: MD Alek Antonio MD [facility]
--- NOTE | 2019-02-23 09:24 | Diag Imaging Result Doc PS360 ---
EXAM: US RENAL 2 (RETROPER) COMPLETE HISTORY: jose/arf TECHNIQUE: Renal ultrasound COMPARISON: 07/06/2018 FINDINGS: The left kidney measures 9.6 x 4.6 x 5.2 cm. Mild increased renal echotexture and cortical thickness. No renal stones or hydronephrosis. No renal mass. There is a left-sided pleural effusion. The urinary bladder is moderately distended and is normal. The right kidney measures 10.6 x 4.6 x 4.6 cm. Mild increased renal echotexture. Normal cortical thickness. No renal stones or hydronephrosis. There is a 4.3 cm cyst superiorly. No solid renal mass. 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 Electronically signed by Davon Scanlon 02/23/2019 9:22 AM
[2019-02-23] MEDS: ANAGRELIDE PO SCH (10:09)
[2019-02-23] MEDS: PREDNISONE PO SCH (10:09)
[2019-02-23] MEDS: WELLBUTRIN XL PO SCH (10:09)
[2019-02-23] MEDS: VICON-C PO SCH (10:09)
--- NOTE | 2019-02-23 18:08 | PROGRESS NOTE ---
DATE: 02/23/2019 SUBJECTIVE: Upon my arrival this morning, patient noted to have a marginal night. She noted having low-grade fever as well as feeling of ill being. The patient did note having increasing cough. Her cough was intermittently productive. This morning, she does note improvement in her condition, but she is currently afebrile. Her pulmonary status has improved considerably. Her energy level is low, but improving. The patient does note improvement in her pain after the initiation of steroids. Through the day today, patient did reasonably well. Chest x-ray returned with improvement in the background interstitial pulmonary edema. Small focal infiltrate in the right upper lobe and left lung base were stable. Renal ultrasound suggested mild increased renal echotexture possibly secondary to medical renal disease. This afternoon, patient states she had a reasonable day. She maintained on oxygen therapy. Oral intake has been adequate. There has been no evidence of fevers, chills or wheezing since this morning. OBJECTIVE: Vital Signs: T-max is 99.5, heart rate 71 to 121, respirations 14-20, blood pressure 116-179 over 35-65. General: Chronically ill appearing, no acute distress. Cardiovascular: Slightly tachycardic. Regular rhythm. No significant murmurs, rubs, or gallops. Pulmonary: Minimal crackles at bilateral bases. Adequate air movement. Abdomen: Soft, nontender, nondistended. Positive bowel sounds. Extremities: Moves all extremities well. No significant clubbing, cyanosis, or edema. Dermatologic: Examination reveals no evidence of rash. LABORATORY DATA: White blood cell count 36.15, hemoglobin 8.7, hematocrit 27.9, platelet count 242,000. Sodium 143, potassium 3.4, chloride 109, bicarb 20, BUN 39, creatinine 2.2, glucose 93. ASSESSMENT AND PLAN: 1. Acute renal failure-the patient had achieved improvement with IV fluids. Unfortunately, yesterday she developed increasing shortness of breath. Patient was provided a dose of Lasix. Pulmonary status has improved considerably. Renal function, however, has deteriorated. Creatinine today is 2.2. Renal ultrasound returned as described above. For now, we will continue optimize medical and nonmedical management. We will hold off on further IV fluids. 2. Acute shortness of breath-this was diagnosed yesterday. With diuresis, patient has achieved improvement. We will continue bronchodilators and Zosyn therapy for possible aspiration as well. 3. Urinary tract infection-culture grew Klebsiella. We will continue Zosyn therapy. 4. Bilateral upper extremity muscle pain and questionable lower extremity weakness-symptoms are consistent with polymyalgia rheumatica. I appreciate Dr. Oviedo consultation. For now, we will continue prednisone 20 mg daily. 5. Left great toe pain-this is consistent with gout. Uric acid returned elevated. We will continue prednisone therapy. 6. Chronic obstructive pulmonary disease-the patient is currently being treated with bronchodilators, incentive spirometry, and aspiration precautions. Symptoms are currently stable. 7. Depression-patient is reasonably controlled with Wellbutrin and as needed BuSpar. 8. Diabetes-blood sugars, historically, have increased with steroids. We will continue sliding scale insulin. 9. Reflux disease-we will continue patient on a proton pump inhibitor. 10. Essential thrombocytosis-platelet count remains acceptable with anagrelide therapy. 11. Hypoxemia - We will continue oxygen per protocol. 12. Profound weakness-We will continue to encourage activity. Energy level is slowly improving. 13. Disposition-at this point, patient continues to require half-way care in a hospital setting. We will plan discharge home once appropriate. cc: Alek Lopes MD
[2019-02-24] MEDS: ZOSYN 3.375 GM in NS 50 ML IV SCH ×2 (02:58→12:18)
[2019-02-24] MEDS: DUONEB (A & A) INH SCH ×6 (03:25→23:28)
[2019-02-24 06:16] LABS: BASO# 0.02 X1000 (0.0-0.2); BASO% 0.1 % (0.0-0.8); HEMATOCRIT 25.8 % (37.0-47.0); HEMOGLOBIN 8.1 g/dL (12.0-16.0); LYMPH% 1.1 % (20.5-51.1); MCH 32.1 PG (27-31); MCHC 31.4 g/dL (33-37); MCV 102.4 FL (81-99); MONO# 0.46 X1000 (0.11-0.59); MONO% 1.2 % (1.7-9.3); MPV 11.9 FL (7.4-10.4); PLT 289 X1000 (130-400); RBC 2.52 XMIL (4.2-5.4); RDW 15.5 % (11.5-14.5); WBC 37.73 X1000 (4.8-10.8)
[2019-02-24 06:38] LABS: CALCIUM 7.4 mg/dL (8.8-10.2); CREATININE 2.6 mg/dL (0.5-0.9); POTASSIUM 2.9 mmol/L (3.5-5.1)
[2019-02-24] MEDS: PRILOSEC PO SCH (06:40)
[2019-02-24] MEDS: HUMALOG SUBQ SCH ×4 (06:40→22:09)
[2019-02-24] MEDS: LOVENOX SUBQ SCH (06:41)
[2019-02-24 06:43] LABS: LYMPHS 4 % (21-51); SEGS 96 % (42-75)
[2019-02-24] MEDS: ADVAIR 250/50 DISKUS INH SCH ×2 (07:23→19:15)
[2019-02-24] MEDS: AUGMENTIN PO SCH ×2 (08:51→22:08)
[2019-02-24] MEDS: WELLBUTRIN XL PO SCH (08:51)
[2019-02-24] MEDS: PREDNISONE PO SCH (08:51)
[2019-02-24] MEDS: VICON-C PO SCH (08:51)
[2019-02-24] MEDS: ANAGRELIDE PO SCH (08:54)
[2019-02-24] MEDS ORDERED: KLOR-CON PO ONE (09:31)
[2019-02-24 16:05] LABS: UR CREAT RANDOM 95.5 mg/dL (11-20); UR PROT RANDOM 57.4 mg/dL
--- NOTE | 2019-02-24 17:42 | NEPHROLOGY CONSULTATION ---
DATE: 02/24/2019 REASON FOR ADMISSION: Acute renal failure. CONSULTING PHYSICIAN: Dr. Lopes REASON FOR CONSULT: Acute renal failure. HISTORY OF PRESENT ILLNESS: Ms. Tracy is a 78-year-old white female who has a known CKD with a previous history of a baseline creatinine of 1.2 to 1.6 over the past several years. She is followed by Dr. Ortiz for thrombocytosis and has been on anagrelide . She had also been taking Hydrea, though this has currently been stopped during her hospitalization. The patient had been seen by Dr. Ortiz on the , had noted that her creatinine had elevated up into the 4 range. He had their office call. The patient was seen by Dr. Alek Lopes with repeat creatinine. At that time in his office, creatinine was 3.5. Due to these findings, patient was admitted to the hospital for further monitoring and evaluation. She was placed on gentle IV fluid. The patient's creatinine continued to improve and had gotten as low as 1.6 on the . During that period of time, she complained of increased work of breathing. Her chest x-ray showed improvement for interstitial pulmonary edema. The patient was given Lasix at that time to assist with her pulmonary edema, and her creatinine has been since bumped up to 2.6. She has no swelling. She denies any increased work of breathing. The patient has known severe COPD. She had an echocardiogram performed indicating pulmonary hypertension with an ejection fraction of 50%, read by Dr. Lucas. Ultrasound indicated a right kidney measuring 9.6 and the left measuring 10.6. Urinalysis is positive for a UTI with gram-negative rods. She is currently on Augmentin q.12 h. with no indications for adjustment per renal dosing. She was placed on prednisone 20 mg p.o. daily with a supplement of omeprazole during her hospitalization. At this time, she states that she is ready to go home. She is sitting up in bed. She is blow drying her hair with her arms over her head. She denies chest pain. No increased work of breathing. No nausea/vomiting. No diarrhea. She has just finished her lunch. No swelling. No recent falls. No fever or chills. She states she has adequate urine out. PAST MEDICAL HISTORY: Anemia, carotid artery disease, cholelithiasis status post laparoscopic cholecystectomy in 2017, chronic kidney insufficiency with a baseline creatinine of 1.2 to 1.6 since 2018. She has COPD. The patient states she wears a CPAP. Diverticulosis, depression, diabetes mellitus type 2, reflux disease, hypertension, hypertriglyceridemia, essential thrombocytosis followed by Dr. 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 Ortiz, low back pain, menopause, intermittent muscle spasms, long-standing history of tobacco use, osteoarthritis, peripheral artery disease, history of a stroke in 2001, urinary incontinence, ureterovaginal prolapse status post BOSSMAN/BSO, anemia of chronic disease, as mentioned. PAST SURGICAL HISTORY: The patient has had cholelithiasis with laparoscopic cholecystectomy 2016, uterovaginal prolapse status post BOSSMAN/BSO, history of a stroke in 2001. ALLERGIES: Listed as Crestor, Demerol, fenofibrate, Keflex, Klonopin, pravastatin, and prednisone. HOME MEDICATIONS: Listed as Advair, anagrelide, atenolol, BuSpar, Colcrys, Colace, guaifenesin, DuoNeb, Nexium, ProAir HFA, Phenergan, turmeric, Tylenol, valacyclovir, vitamin B, vitamin C, Wellbutrin. SOCIAL HISTORY: She is . She is a former smoker since her early 30s. Rarely uses alcohol. Denies illicit drug use. 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 FAMILY HISTORY: Father at 66 secondary to complications of prostate cancer and pulmonary thromboembolism. The patient's mother at the age of 62 secondary to complications of acute ME/stroke. History of diabetes, hypertension and hyperlipidemia with mother. REVIEW OF SYSTEMS: Times 10 with pertinent positives listed above in the HPI. HER MOST RECENT VITAL SIGNS: Patient's temperature 98.4 degrees, blood pressure 134/38, heart rate is 104, respirations are 20, she is on 2 L nasal cannula last recorded saturation is 94%. INTAKE AND OUTPUT: She has had 450 in. She states that she has been voiding adequate amounts. I have requested she keep a strict I O. LABORATORY DATA: Sodium 138, potassium 2.9, chloride 106, CO2 of 19, BUN 50, creatinine 2.6, glucose 94, anion gap of 13, calcium 7.4, albumin 2.9. White count 37.7, hemoglobin 8.1, hematocrit 25.8, with a platelet count of 289,000. The patient's last urinalysis was positive for turbid urine, positive for proteinuria hematuria, leukocytes, WBCs, RBCs, and bacteria. Culture has returned gram-negative rods. Sensitivity is still pending. She is currently on Augmentin. PHYSICAL EXAMINATION: This is a 78-year-old white female, resting quietly in bed. Head of the bed is elevated. She is in no acute distress. Her skin is warm and dry.HEENT: Normocephalic, atraumatic. Conjunctiva is pale. She has CARMELA. Mucous membranes are dry. Neck is supple, trachea midline, no evidence of JVD. Cardiovascular: She has regular rate and rhythm. She was slightly tachycardic during evaluation. No murmur or gallop appreciated. Her lungs are clear to auscultation anteriorly, equal excursion. She is currently on room air. Abdomen is soft, nontender. Positive bowel sounds. Genitourinary not inspected. Request patient keep strict intakes and outputs. Extremities have no edema, no clubbing or cyanosis. Neurological: She is alert and oriented x3. Moving all extremities well. ASSESSMENT AND PLAN: 1. Acute renal failure on chronic kidney disease, stage 3B. The patient has been receiving Lasix. This is currently held. She has a positive urinary tract infection. She is receiving renal-dosed Augmentin. Her renal ultrasound was essentially negative with right kidney measuring 9.6, left measuring 10.6. We are currently awaiting her urine electrolytes. No indications for intervention. Requested to keep strict input and output. 2. Chronic obstructive pulmonary disease. Patient does wear home O2 at night. She states that she also wears CPAP. 3. Electrolytes. Hypokalemia. This is been treated already today with labs ordered in the morning. 4. Acid-base balance. Patient is slightly metabolic acidotic. We will continue to monitor. More than likely related to #1. 5. Thrombocytosis. The patient continues to be monitored by Dr. Ortiz. 6. Leukocytosis. Patient's white count remains elevated. She is on Augmentin. Positive urinary tract infection. We are awaiting sensitivity for culture. I would like to thank you for allowing us to follow with this patient. Thanks for the consult. Discussed directly with Dr. Lopes. I think it is unlikely that this represents a renal vasculitis, but it is certainly possible. I will check complements, and serologies and repeat the urine studies. If the answer is not clear, a kidney biopsy may be required. rg Dictated by ROSANNA Klein for Rakesh Cui MD Face to face encounter, data reviewed, discussed with Chad Villatoro on 02/24/19. I agree with the above assessment and plan of care. rg cc: ROSANNA Klein MD Scott A. Matthews, MD [facility]ERElsa
[2019-02-24 19:59] LABS: URINE SOURCE VOIDED
[2019-02-24 20:05] LABS: BILIRUBIN URINE NEGATIVE (NEGATIVE); BLOOD URINE NEGATIVE (NEGATIVE); COLOR YELLOW; GLUCOSE URINE NEGATIVE (NEGATIVE); KETONE URINE NEGATIVE (NEGATIVE); LEUKOCYTES URINE TRACE (NEGATIVE); NITRITE URINE NEGATIVE (NEGATIVE); PROTEIN URINE 50 mg/dL (NEGATIVE); SP GRAVITY URINE 1.016; TURBIDITY URINE HAZY (CLEAR); UROBILINOGEN URINE NORMAL (NORMAL)
[2019-02-24 20:23] LABS: UR EPITHELIAL CELLS <10 /HPF (<10); URINE BACTERIA NEGATIVE /HPF; URINE CASTS NONE SEEN; URINE CRYSTALS NONE SEEN; URINE SMALL ROUND CELLS NONE SEEN; URINE WBC <10 /HPF (<10); URINE YEAST PRESENT
[2019-02-24] MEDS: TENORMIN PO SCH (22:09)
[2019-02-24] MEDS: AGRYLIN PO SCH (22:16)
[2019-02-25] MEDS: DUONEB (A & A) INH SCH ×5 (03:10→19:46)
--- NOTE | 2019-02-25 03:56 | HEMO/ONC CONSULTATION ---
DATE: 02/24/2019 CHIEF COMPLAINT: We are being consulted for further evaluation of patient's leukocytosis and thrombocytosis. HISTORY OF PRESENT ILLNESS: Ms. Jaime is a 78-year-old white female who was admitted for acute renal failure by her primary. The patient has a very complicated past medical history where she has been admitted for periods of nine due to COPD exacerbations and acute on chronic kidney failure. In primary care office, creatinine was elevated up to 4.0 and was admitted at that time for further evaluation and treatment. Ms. Jaime is well known to us in our clinic where she follows up for essential thrombocytosis and leukocytosis. The patient was on anagrelide and Hydrea. The patient continues on her anagrelide 1 mg every a.m. Hydrea 100 mg was stopped while the last time the patient was in the hospital. On 02/17/2019, her white blood cell count was 22.4 at that time. Now platelets are 243,000. The patient has had bone marrow biopsy in the past without any evidence of leukemia or other underlying malignancy to explain her leukocytosis. PAST MEDICAL HISTORY: Anemia, coronary artery disease, cholelithiasis status post cholecystectomy, chronic kidney disease, chronic obstructive pulmonary disease, diverticulosis, depression, diabetes, reflux disease, hypertension, hypertriglyceridemia, essential thrombocytosis, gout, hiatal hernia, hyperlipidemia, chronic hypoxemia, immunoglobulin deficiency, low back pain, menopause, intermittent muscle spasms, osteoarthritis,. longstanding history of tobacco use, peripheral arterial disease, pulmonary nodules, intermittent dizziness, history of CVA, urinary incontinence and uterovaginal prolapse, status post BOSSMAN and BSO. CURRENT MEDICATIONS: Advair, anagrelide, atenolol, BuSpar, Colcrys, Colace, guaifenesin, DuoNeb, Nexium, ProAir HFA, Phenergan and turmeric, Tylenol, valcyclovir, vitamin B complex vitamin C, Wellbutrin. ALLERGIES: She is allergic to Crestor, Demerol, fenofibrate, Keflex, Klonopin, pravastatin, prednisone. SOCIAL HISTORY: Former smoker and just recently quit. Rarely uses alcohol. Denies any illicit drug use. FAMILY HISTORY: Prostate cancer, pulmonary thromboembolism, acute myocardial infarction, stroke, diabetes, hypertension, hyperlipidemia. REVIEW OF SYSTEMS: Negative other than that mentioned in the HPI. PHYSICAL EXAMINATION: Vital Signs: Temperature 98.4, heart rate 104, respiratory rate 20, blood pressure 130/38. Sat 94% on nasal cannula. General: Patient is awake, lying in bed, no acute distress noted. HEENT: Anicteric. Pupils PERRLA. Mucous membranes dry. Neck: Supple. Trachea midline. No JVD. No palpable adenopathy. Cardiovascular: S1, S2. Regular rate and rhythm. Chest: Bilateral breath sounds, diminished bilaterally. Abdomen: Soft, nontender, nondistended. Bowel sounds present in all 4 quadrants. Skin: Warm, dry and intact. Neurologic: Alert and oriented x 3. No focal deficits noted. LABORATORY DATA: White count 37.73, hemoglobin 8.1, hematocrit 25.8, platelets are 289. Potassium 2.9, BUN 50, creatinine 2.6. ASSESSMENT AND PLAN: 1. Leukocytosis: Patient has had bone marrow biopsy and flow cytometry without any evidence of leukemia. The patient's leukocytosis could be caused from steroid use. It could also be caused by an underlying infection. Appears to be cause of some underlying disease that has not been found at this time. Continue to monitor and follow along. 2. Thrombocytosis. Platelet counts continue to be stable. Patient could continue anagrelide once a day as instructed. 3. Acute renal failure: Continue as instructed by primary medical team. 4. COPD. Continue orders per primary medical team . 5. Depression. Continue orders per primary medical team. 6. Diabetes, aware. Continue admission per primary medical team. 7. Gastroesophageal esophageal reflux disease. Continue proton pump inhibitors. Dictated by ROSANNA Bueno for Jose Antonio Ortiz MD cc: MD Alek Arshad MD [facility]
[2019-02-25] MEDS: PRILOSEC PO SCH ×2 (05:07→07:55)
[2019-02-25] MEDS: LOVENOX SUBQ SCH (05:07)
[2019-02-25 06:35] LABS: BASO# 0.01 X1000 (0.0-0.2); HEMATOCRIT 22.9 % (37.0-47.0); HEMOGLOBIN 7.4 g/dL (12.0-16.0); LYMPH# 0.81 X1000 (1.2-3.4); LYMPH% 2.8 % (20.5-51.1); MCH 32.7 PG (27-31); MCHC 32.3 g/dL (33-37); MCV 101.3 FL (81-99); MONO# 0.62 X1000 (0.11-0.59); MONO% 2.1 % (1.7-9.3); MPV 11.6 FL (7.4-10.4); PLT 264 X1000 (130-400); RBC 2.26 XMIL (4.2-5.4); RDW 15.6 % (11.5-14.5); WBC 28.89 X1000 (4.8-10.8)
[2019-02-25 06:53] LABS: ALBUMIN 2.4 g/dL (3.5-5.0); CALCIUM 7.4 mg/dL (8.8-10.2); CREATININE 2.8 mg/dL (0.5-0.9); PHOSPHORUS 4.2 mg/dL (2.7-4.5); POTASSIUM 3.3 mmol/L (3.5-5.1)
[2019-02-25 07:15] LABS: ANISOCYTOSIS 1+; BANDS 1 % (0-1); EOS 1 % (1-10); LYMPHS 5 % (21-51); SEGS 93 % (42-75)
[2019-02-25] MEDS: HUMALOG SUBQ SCH ×3 (07:55→16:17)
[2019-02-25] MEDS: ADVAIR 250/50 DISKUS INH SCH ×2 (08:00→19:46)
[2019-02-25] MEDS ORDERED: KLOR-CON PO ONE (08:16)
[2019-02-25] MEDS ORDERED: HYDREA PO SCH (09:00)
[2019-02-25] MEDS ORDERED: LEVAQUIN PO SCH (09:15)
[2019-02-25] MEDS: PREDNISONE PO SCH (09:42)
[2019-02-25] MEDS: VICON-C PO SCH (09:43)
[2019-02-25] MEDS: WELLBUTRIN XL PO SCH (09:43)
[2019-02-25] MEDS ORDERED: NS 500 ML IV SCH (11:00)
--- NOTE | 2019-02-25 14:19 | NEPHROLOGY PROGRESS NOTE ---
DATE: 02/25/2019 SUBJECTIVE: She is sitting up in bed. No complaints. She does have some anorexia that has been present for weeks with abnormal taste, minimal nausea, shortness of breath at baseline. OBJECTIVE: Vital Signs: Blood pressure 168/54, heart rate 90, respirations 16. Afebrile. Generally: Thin elderly woman, no distress. Skin: Warm and dry. HEENT: Conjunctivae are pink. Pupils are equal. Oropharynx is clear. Neck: Supple. Neck vein distention is not present. Heart: PMI is nondisplaced. Regular rate and rhythm with S4. Lungs: Equal. No crackles. Abdomen: Soft, nontender. Bowel sounds are present. Extremities: Have no edema, clubbing, or cyanosis. IMPRESSION AND PLAN: Acute kidney injury. Her creatinine is continuing to trend up slightly. Overall significant change from earlier this year. Statistically, the most likely cause of acute kidney injury would be acute tubular necrosis. This represents 85 to 90 percent of all acute kidney injury even in outpatients. Her urine is really rather bland. There were trace leukocytes but no blood and minimal protein. This would be most consistent with acute tubular necrosis as opposed to an acute vasculitis. I sent complements and other serologies yesterday and those results are pending. Her ultrasound did not demonstrate obstruction and had relatively normal preserved kidney sizes. Based on her results and how her kidney function does, we may need to consider a kidney biopsy. We discussed this. It could certainly be done as an outpatient if she is otherwise ready for discharge. cc: MD Alek Zamudio MD
[2019-02-25 15:01] LABS: HEPATITIS PROFILE ACUTE SEE COMMENTS
[2019-02-25 15:33] VITALS: BP 177/62
--- NOTE | 2019-02-25 15:52 | HEMO/ONC PROGRESS NOTE ---
DATE: 02/25/2019 SUBJECTIVE: The patient says she continues to feel weak. Continues to have cough that is slowly improving. OBJECTIVE: Vital Signs: Temperature 97.9 degrees, heart rate 90, respiratory rate 16, blood pressure 160/54, saturation 90% on room air. General: The patient is awake, lying in bed, no acute distress noted. HEENT: Anicteric. Mucous membranes dry. Cardiovascular: S1, S2. Regular rate and rhythm. Chest: Bilateral breath sounds diminished bilaterally. Abdomen: Soft, nontender. Bowel sounds present in all 4 quadrants. Neurologic: Alert and oriented x3. No focal deficits noted. LABORATORY DATA: White count 28.89, hemoglobin 7.4, hematocrit 22.9, platelets are 264,000. Potassium 3.3, BUN 61, creatinine 2.8. ASSESSMENT AND PLAN: 1. Leukocytosis: Baseline around 20,000. Current elevation due to leukemoid reaction. Will monitor. 2. Thrombocytosis. Platelet count continues to be stable. 3. Acute renal failure: Continue recommendations per primary medical team and Nephrology. 4. Chronic obstructive pulmonary disease. Continue recommendations by primary medical team. Dictated by ROSANNA Bueno for Jose Antonio Ortiz MD [facility]
--- NOTE | 2019-02-25 16:33 | EKG Report ---
Test Performed on : 02/25/2019 4:08:27 PM Test Reason : Medication start Blood Pressure : / mmHG Vent. Rate : 091 BPM Atrial Rate : 091 BPM P-R Int : 122 ms QRS Dur : 082 ms QT Int : 364 ms P-R-T Axes : 064 015 047 degrees QTc Int : 447 ms Normal sinus rhythm. Minimal voltage criteria for LVH, may be normal variant Borderline ECG When compared with ECG of 18-DEC-2018 11:46, No significant change was found Confirmed by Isauro SNOW, Jonah Denis ([id number]) on 02/27/2019 4:39:00 PM
--- NOTE | 2019-02-25 18:05 | DISCHARGE SUMMARY ---
ADMISSION DATE: 02/18/2019 DISCHARGE DATE: SUBJECTIVE: Upon my arrival this morning, the patient states she was doing reasonably well. Overnight, she slept well. Her p.o. intake remains reasonable. Injury level is low, but slowly improving. Since diuresis, her pulmonary status has improved. She notes significant decrease in shortness of breath. Renal function, however, remained impaired this morning. Throughout the day today, the patient states she did reasonably well. Dr. Cui with Nephrology was consulted. This evening, once again, the patient states she feels reasonably well. She denies fevers, chills, nausea, vomiting or chest discomfort. OBJECTIVE: T-max 99.5 degrees, heart rate 64 to 117, respirations 16 to 20, blood pressure 119 to 171 over 38 to 45. General: Chronically ill appearing, in no acute distress. Cardiovascular: Slightly tachycardic. Regular rhythm. No significant murmurs, rubs or gallops. Pulmonary: Minimal crackles at bilateral bases. Adequate air movement. Abdomen is soft, nontender, nondistended. Positive bowel sounds. Extremities: Moves all extremities well. No significant clubbing, cyanosis or edema. Dermatologic evaluation reveals no evidence of rash. LABORATORY DATA: White blood cell count 37.73, hemoglobin 8.1, hematocrit 25.8, platelet count 289,000. Sodium 138, potassium 2.9, chloride 106, bicarbonate 19, BUN 50, creatinine 2.6, glucose 94, calcium 7.4. Sputum culture is positive for a gram-negative dianne. ASSESSMENT AND PLAN: 1. Acute renal failure: The patient achieved improvement, although transiently with intravenous fluids. With volume overload and resuming diuresis, renal function has deteriorated. Renal ultrasound suggested possible medical renal disease. Dr. Cui was consulted for further evaluation and management. We will defer treatment of this condition to his discretion. 2. Acute shortness of breath: This was diagnosed associated with a volume overload state. A sputum culture, however, has returned positive for sparse gram-negative dianne growth. We will continue antibiotic intervention. Shortness of breath has improved considerably. No further diuresis has been warranted. 3. Urinary tract infection: The patient's urine culture grew Klebsiella. We will continue Zosyn therapy. 4. Bilateral upper extremity muscle pain and questionable lower extremity weakness: Symptoms are most consistent with polymyalgia rheumatica. The patient has achieved improvement clinically with prednisone therapy. I appreciate Dr. Oviedo's consultation. 5. Left great toe pain/gout: The patient's uric acid returned elevated. We will continue prednisone therapy. 6. Chronic obstructive pulmonary disease: The patient is currently being treated with bronchodilators, incentive spirometry and aspiration precautions. Symptoms are reasonably stable. 7. Depression: Symptoms are controlled with Wellbutrin and as-needed BuSpar. 8. Diabetes: Blood sugars have increased since starting steroids. We will continue sliding scale insulin. 9. Reflux disease: We will continue the patient on a proton pump inhibitor. Symptoms are stable. 10. Essential thrombocytosis: The patient is being treated with anagrelide. We will ask Dr. Ortiz to consult for further evaluation and management. 11. Hypoxemia: We will continue oxygen per protocol. 12. Profound weakness: The patient's symptoms are slowly improving. We will continue to follow clinically. 13. Disposition: At this point, the patient continues to require long term care in a hospital setting. We will plan discharge home once appropriate. cc: Alek Lopes MD
[2019-02-25 18:24] LABS: CALCIUM 7.7 mg/dL (8.8-10.2); CREATININE 2.7 mg/dL (0.5-0.9); POTASSIUM 4.4 mmol/L (3.5-5.1)
--- NOTE | 2019-02-26 09:51 | DISCHARGE SUMMARY ---
ADMISSION DATE: 02/18/2019 DISCHARGE DATE: 02/25/2019 ADMISSION DIAGNOSIS: Acute renal failure. DISCHARGE DIAGNOSES: 1. Acute renal failure, etiology unknown. 2. Gram-negative pneumonia with sputum culture positive for Pseudomonas. 3. Urinary tract infection secondary to Klebsiella. 4. Polymyalgia rheumatica. 5. Gout with acute exacerbation with left great toe pain. 6. Chronic obstructive pulmonary disease, present on arrival. 7. Depression, present on arrival. 8. Diabetes, present on arrival. 9. Reflux disease, present on arrival. 10. 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 11. Hypoxemia, present on arrival. 12. Profound weakness, improving. CONSULTATIONS: 1. Dr. Oviedo with Rheumatology was consulted for further evaluation and management of presumed polymyalgia rheumatica. 2. Dr. Ortiz with Hematology and Oncology was consulted for further evaluation and management of essential thrombocytosis and leukocytosis. 3. Dr. Cui with Nephrology was consulted for further evaluation and management of acute on chronic kidney disease. PROCEDURES: 1. Multiple chest x-rays were performed throughout hospitalization. 2. Echocardiogram was performed on 02/22/2019, which revealed trace pulmonary regurgitation. Moderate mitral annular calcification. Moderate mitral regurgitation. Mild pulmonary regurgitation. Moderate tricuspid regurgitation. Pulmonary pressure of 66 mmHg. Left atrial enlargement. Estimated ejection fraction of 50%. Anteroseptal hypokinesis. Small anterior and posterior echo-free space suggestive of pericardial effusion. No evidence of tamponade. No obvious intracardiac mass or thrombus. 3. Renal ultrasound was performed on 02/23/2019 which revealed mild increased renal echotexture. HISTORY AND PHYSICAL EXAMINATION: See admit note. PHYSICAL EXAMINATION PRIOR TO DISCHARGE: Vital Signs: Temperature 97.3 degrees, heart rate 87, respirations 16, blood pressure is 177/62. General: Chronically ill-appearing in no acute distress. Cardiovascular: Regular rate and rhythm. No significant murmurs, rubs, or gallops. Pulmonary: Clear to auscultation bilaterally. Abdomen: Soft, nontender, nondistended. Positive bowel sounds. Extremities: Moves all extremities well. No significant clubbing, cyanosis, or edema. Dermatologic: Evaluation reveals no evidence of rash. LABORATORY DATA PRIOR TO DISCHARGE: White blood cell count 28.89, hemoglobin 7.4, hematocrit 22.9, platelet count 264,000. Sodium 136, potassium 4.4, chloride 104, bicarbonate 13. BUN 59, creatinine 2.7, glucose 145, calcium 7.7, phosphorus 4.20. HOSPITAL COURSE: The patient was admitted as per history and physical examination. Hospital course per condition is as follows: 1. Acute on chronic renal failure--upon admission, patient's creatinine was noted to be significantly elevated. Laboratory data was most consistent with acute tubular necrosis. In the setting of a new autoimmune diagnosis, additional etiologies will need to be considered. Dr. Cui was consulted. Multiple labs were drawn. At time of discharge, patient's creatinine remained elevated at 2.7. Because her clinical condition had stabilized, patient will be monitored very closely as an outpatient. Followup has been arranged for Thursday. 2. Gram-negative pneumonia with sputum cultures positive for Pseudomonas--the patient was diagnosed while hospitalized. The patient will be treated with levofloxacin therapy for the next 7 days. At time of discharge, patient's oxygen saturations were acceptable on room air. 3. Urinary tract infection--urine culture upon admission grew Klebsiella. Patient was treated with antibiotics while hospitalized. She will continue levofloxacin for additional 7 days as an outpatient. 4. Polymyalgia rheumatica--upon admission, patient complained of bilateral upper extremity muscle pain and questionable lower extremity weakness. Inflammatory markers returned significantly elevated. The diagnosis of polymyalgia rheumatica was made per Dr. Oviedo. The patient will be discharged home with prednisone 20 mg daily for the next 3 weeks. Upon followup with Dr. Oviedo, decreasing dosage will be considered. At time of discharge, symptoms were controlled. 5. Acute gouty flare--patient was diagnosed while hospitalized. Uric acid returned elevated. With the addition of prednisone, symptoms have improved. If the patient's renal function improves, we will consider allopurinol as an outpatient. 6. Chronic obstructive pulmonary disease--patient has longstanding disease. She was treated with bronchodilators, incentive spirometry, and aspiration precautions while hospitalized. At time of discharge, patient denied shortness of breath. 7. Depression--symptoms are reasonably controlled with Wellbutrin and as-needed BuSpar. 8. Diabetes--blood sugars increased while on steroids. With decreasing from 40 mg to 20 mg while hospitalized, blood sugars improved. This will be followed as an outpatient as well. 9. Reflux disease--symptoms remain stable on a proton pump inhibitor. 10. Essential thrombocytosis--upon admission, patient was treated with anagrelide therapy. Because patient will require levofloxacin as an outpatient, patient was transitioned from anagrelide to Hydrea. This will be monitored closely per Dr. Ortiz as an outpatient. 11. Hypoxemia--patient has longstanding disease. She intermittently uses oxygen at home. The patient was followed with oxygen per protocol while hospitalized. We will continue this as an outpatient. 12. Profound weakness--the patient has achieved improvement with treatment of her above conditions. We will follow this closely. 13. Anemia--while hospitalized, patient was noted to have a considerable anemia. She was transfused 1 unit of packed red blood cells prior to discharge. This will be followed as an outpatient as well. 14. Disposition--we discussed this in great detail. Patient's laboratory data remains marginal. Clinically, however, she notes significant improvement. We discussed keeping her here over the weekend. At this point, she is not interested. I have expressed to patient, should her condition change whatsoever, she is to return to the hospital immediately. Otherwise, we will work towards managing these conditions as an outpatient. DISCHARGE CONDITION: Stable. DISPOSITION: Discharged to home. MEDICATIONS: 1. Acetaminophen 650 mg every 4 hours as needed. 2. Atenolol 50 mg at bedtime. 3. Bupropion ER 300 mg daily. 4. BuSpar 5 mg three times daily as needed. 5. Advair 250/50 one puff twice daily. 6. Hydrea 500 mg daily. 7. Levofloxacin 250 mg daily for 7 days. 8. Omeprazole 40 mg daily. 9. Vitamin B complex daily. 10. Prednisone 20 mg daily. 11. Patient has been instructed to discontinue anagrelide. FOLLOWUP: 1. The patient is to follow up with me on Thursday. At that time, we will check a CMP and a CBC. If the patient's platelet count remains acceptable on Hydrea, we will consider extending levofloxacin to a total of 2 weeks. 2. Patient is follow up with Dr. Ortiz on Thursday or Thursday. 3. Patient is follow up with Dr. Oviedo in 3 weeks. 4. Patient is follow up with Dr. Cui next week. cc: Alek Lopes MD
[2019-02-26 10:46] LABS: ANTINEUTROPHIL CYTOPLASMIC AB SEE COMMENTS
== END 2019-02-25 19:45 | disposition home or self-care (01) | DRG 682 ==
LOC: DIRADM 17:15 → 4N 18:21
PROVIDERS: ADMIT Internal Medicine; ATTEND Internal Medicine
CPT/HCPCS: 36430; 71020; 71046; 76770; 80048; 80053; 80069; 80074; 81001; 82570; 82948; 83516; 83520; 84155; 84156; 84165; 84300; 84550; 85025; 85027; 85651; 86140; 86160; 86850; 86900; 86901; 86920; 87040; 87070; 87077; 87088; 87186; 87205; 93005; 93010; 93306; 94640; 94760; 94761; 94799; A9270; J0696; J1650; J1815; J1940; J2543; J7030; J7040; J7506; J7512; P9016; S0176; XXXXX

== ENCOUNTER 2019-05-02 07:26 | Inpatient (IN) ==
[2019-05-02] MEDS ORDERED: ASPIRIN PO ONE (07:38)
[2019-05-02] MEDS ORDERED: NITROGLYCERIN TOP ONE (07:46)
--- NOTE | 2019-05-02 08:04 | EKG Report ---
Test Performed on : 05/02/2019 07:31:23 AM Test Reason : cp Blood Pressure : / mmHG Vent. Rate : 075 BPM Atrial Rate : 075 BPM P-R Int : 152 ms QRS Dur : 074 ms QT Int : 372 ms P-R-T Axes : 081 015 047 degrees QTc Int : 415 ms Normal sinus rhythm. Normal ECG When compared with ECG of 25-FEB-2019 16:08, No significant change was found Unconfirmed Result
--- NOTE | 2019-05-02 08:19 | PROVIDER DOCUMENTATION ---
HPI-Chest Pain - General Chief Complaint: Chest Pain Stated Complaint: CHEST PAIN Time Seen by Provider: 05/02/19 07:32 Source: patient, family Allergies/Adverse Reactions: Patient Allergies Allergy/AdvReac Type Severity Reaction Status Date / Time meperidine HCl * Allergy Severe Respiratory Verified 07/03/18 20:08 [From Demerol] Distress cephalexin monohydrate * Allergy Mild RASH Verified 07/03/18 20:08 [From Keflex] clonazepam [From Klonopin] Allergy Unknown Verified 02/20/19 02:23 codeine Allergy Unknown Verified 07/03/18 20:09 fenofibrate Allergy Unknown Verified 02/20/19 02:23 Iodinated Contrast- Oral and Allergy Unknown Verified 07/03/18 20:09 IV Dye [IV Dye] pravastatin Allergy Unknown Verified 02/20/19 02:23 rosuvastatin [From Crestor] Allergy Unknown Verified 02/20/19 02:22 adhesive tape AdvReac RASH Verified 07/03/18 20:09 Home Medications: Home Medication List Medication Instructions Recorded Confirmed Last Taken Type Atenolol [Tenormin] 50 mg PO QHS #0 tablet 01/08/16 02/19/19 1 Day Ago Rx ~12/16/18 Bupropion HCl [Bupropion Xl] 300 mg PO DAILY 12/17/18 02/19/19 12/17/18 History Vit B Complex 100 Cmb #2/Herbs [Sm 100 mg PO DAILY 12/17/18 02/19/19 12/17/18 History Natural Balanced B-100 Tab] Buspirone [Buspar] 5 mg PO TID PRN PRN tablet 12/23/18 02/19/19 Unknown Rx Omeprazole [Prilosec] 40 mg PO DAILY@0700 capsule 12/23/18 02/19/19 Unknown Rx Ipratropium/Albuterol Sulfate 3 ml INHALATION 4XDAY 02/19/19 02/19/19 Unknown History [Iprat-Albut 0.5-3(2.5) mg/3 ml] Acetaminophen [Tylenol] 650 mg PO Q4H PRN PRN tab 02/25/19 Unknown Rx Fluticasone/Salmet 250/50 INH 1 puff INH RTBID inhaler 02/25/19 Unknown Rx [Advair 250/50 Diskus] Hydroxyurea [Hydrea] 500 mg PO DAILY cap 02/25/19 Unknown Rx Levofloxacin [Levaquin] 250 mg PO DAILY #7 tab 02/25/19 Unknown Rx Prednisone 20 mg PO DAILY #30 tab 02/25/19 Unknown Rx - History of Present Illness-CP Nature of Presenting Problem: Complains of 2 chest pain episodes this morning since 0500. The first episode was severe, squeezing, type pain, lasted about 30 minutes, and was associated with nausea and diaphoresis. The second one was not as severe, lasted about 15- 20 minutes and was brought on by minimal exertion. Patient states she has had several similar episodes, just not as severe, within the last month. Location: reports: substernal Chest Pain Radiation: reports: no radiation Quality of Pain: reports: other (squeezing) Severity in ED: severe Onset/Duration: 1-3 hours ago Timing: still present, improving, intermittent, changing over time Context/Activities at Onset: reports: light activity Modifying Factors: improves with: rest. worse with: other (exertion) Associated Symptoms: reports: diaphoresis, nausea Nitro Today/Relief: no nitro taken today Aspirin Treatment Today: no aspirin today Prior Chest Pain/Cardiac Workup: reports: no prior cardiac workup Similar Symptoms Previously?: Yes Recently Seen Here or By Another Healthcare Provider: Yes (sees Dr. Lopes) Review of Systems - Adult - REVIEW OF SYSTEMS - ADULT Constitutional: reports: no symptoms reported Eyes: reports: no symptoms reported Ears, Nose, Mouth & Throat: reports: no symptoms reported Cardiovascular: reports: see HPI, chest pain. denies: edema, heart murmur, irregular heart rate, orthopnea, palpitations, poor circulation, PND, syncope Respiratory: reports: no symptoms reported Gastrointestinal: reports: no symptoms reported Genitourinary: reports: no symptoms reported Musculoskeletal: reports: no symptoms reported Integumentary: reports: no symptoms reported Neurological: reports: no symptoms reported Psychiatric: reports: no symptoms reported Endocrine: reports: no symptoms reported Hematologic/Lymphatic: reports: no symptoms reported Allergic/Immunologic: reports: no symptoms reported All Other Systems: Reviewed and Negative Past History - Adult - PAST MEDICAL HISTORY-ADULT Review of Records: reports: Old Records Reviewed, Nursing Assessment Review, Medications Reviewed, Social history reviewed & non-contributory. Major Childhood Illnesses: reports: denies history Cardiovascular: reports: other (carotid artery disease) Respiratory: reports: denies history Gastrointestinal: reports: denies history Obstetrical/Gynecological: reports: denies history Genitourinary: reports: denies history Musculoskeletal: reports: denies history Neurological: reports: denies history Endocrine/Immune: reports: denies history, other (polymyalgia rheumatica) Other Conditions: reports: denies history - PRIOR SURGERIES/PROCEDURES Surgical/Procedure History: reports: reviewed, not pertinent, other (left carotid endarterectomy) - IMMUNIZATION STATUS Childhood Immunizations: See Nurse Assessment Flu Vaccine: See Nurse Assessment - FAMILY HISTORY Family History: reviewed, not pertinent - SOCIAL HISTORY Smoking: non-smoker Substance Use: none/never Alcohol Use Frequency: never Living Situation: family Physical Exam-General - PHYSICAL EXAM-ADULT Initial Vital Signs Reviewed: Yes (Hypertensive, otherwise normal) - CONSTITUTIONAL General Appearance: appears well, alert, no apparent distress - EYES Eyes: PERRL/EOMI, pink conjunctivae - HEAD, EARS, NOSE, MOUTH & THROAT HENMT: normocephalic/atraumatic, moist mucous membranes, normal ENT inspection - NECK Neck: non-tender, full range of motion, supple, normal inspection - RESPIRATORY Respiratory: chest non-tender, lungs clear, normal breath sounds, no pleuratic chest pain, no respiratory distress, no accessory muscle use - CARDIOVASCULAR Cardiovascular: normal peripheral pulses, regular rate, rhythm, no edema, no gallop, no JVD, no murmur - GASTROINTESTINAL (ABDOMEN) Abdominal Exam: normal bowel sounds, non tender, soft, no organomegaly, no pulsatile mass - LYMPHATIC Lymphatic: no adenopathy, axilla node tender - MUSCULOSKELETAL Back Exam: normal inspection, no CVA tenderness, no vertebral tenderness Extremity: normal range of motion, non-tender, normal gait, normal inspection, no pedal edema, no calf tenderness, normal capillary refill - SKIN Integumentary: normal color, normal turgor, warm/dry - NEUROLOGIC Neurologic: nutrition assistant II-XII nml as tested, grossly normal, no motor/sensory deficits - PSYCHIATRIC Psych/Mental Status: normal mood/affect, normal thought content, normal thought process, oriented x 3 - HEART Score HEART Score: History: Highly Suspicious HEART Score: ECG: Non-Specific Repolarization Disturbance/LBBB/PM HEART Score: Age: > or = 65 Years HEART Score: Risk Factors for Atherosclerotic Disease: 1 or 2 Risk Factors HEART Score: Troponin: < or = Normal Limit Total HEART Score:: 6 Progress - PLAN OF CARE/RESULTS Progress/Plan/Lab Results: Vital Signs - 8 hr 05/02/19 07:28 Temperature 97.5 F L Pulse Rate 62 Respiratory Rate 20 Blood Pressure 226/71 O2 Sat by Pulse Oximetry 99 Orders Category Date Time Status Cardiac Monitoring DIRECTED Care 05/02/19 07:38 Active Oxygen Therapy- ED Nursing DIRECTED Care 05/02/19 07:38 Active Saline Loc NOW Care 05/02/19 07:38 Active CHEST-2 VIEWS [RAD] Stat Exams 05/02/19 07:38 Taken CBC WITH ELECTRONIC DIFF [HEME] Stat Lab 05/02/19 07:38 Uncollected CK PROFILE [SP CHEM] Stat Lab 05/02/19 07:38 Uncollected COMPREHENSIVE METABOLIC PANEL [CHEM] Stat Lab 05/02/19 07:38 Uncollected LIPASE [CHEM] Stat Lab 05/02/19 07:46 Uncollected PRO B-NATRIURETIC PEPTIDE Stat Lab 05/02/19 07:38 Uncollected PROTIME WITH INR [COAG] Stat Lab 05/02/19 07:38 Uncollected PTT [COAG] Stat Lab 05/02/19 07:38 Uncollected TROPONIN T Stat Lab 05/02/19 07:38 Uncollected Aspirin Med 05/02/19 07:38 Discontinued 325 mg PO NOW ONE Nitroglycerin Med 05/02/19 07:46 Discontinued 0.5 inch TOP NOW ONE CP/SOB/Palp >45 yrs of Age Stat Oth 05/02/19 07:38 Ordered EKG [EKG] Stat Ther 05/02/19 07:38 Draft - REASSESSMENT Reassessment #1 Time Reassessed: 08:28 Status: improving (Given ASA for CP, Transdermal Nitroglycerine and IV hydralazine for severe hypertension) Reassessment Comment: labs pending at this time. - EKG 1 Time of EKG reading by physician:: 07:40 EKG Read and Signed by:: Jose Alfredo Farris EKG Interpretation (*Must complete 3 of following elements*): Normal Rate: 75 Rhythm: nsr Sparks: normal QRS: poor R wave progression [place] Interval: normal ST Wave: normal - XRAY 1 XRAY Study: Chest Impression: Abnormal (read by me at [id number] - normal cardiac, atelectasis left base, aortocalcinosis.) - CONSULTS/PCP/HOSPITALIST Notification #1 *Consult/PCP/Hospitalist*: Moses Time Discussed: 08:10 Consult Disposition: Will see in ED, Admit Departure - Departure Date of Disposition Decision: 05/02/19 Time of Disposition Decision: 08:28 DIAGNOSIS: Precordial chest pain, Hypertensive urgency Disposition: ADMITTED INPATIENT 09 Certified Medical Emergency: Emergent Condition: Stable Referrals and Follow-Ups: Alek Lopes MD [Primary Care Provider] - - Critical Care Note This patient required my direct & personal management of CC.: Yes Total Time (mins): 35 ([facility] in danger) Critical Care Statement: This patient required my direct personal management to treat or rule out processes, the absence of which, could potentiallly result in sudden, clinically significant life or limb threatening deterioration. Attestation - Physician/ ARLIN Attestation Patient care was provided by Advanced Practice Provider:: No The physician spent face to face time with patient:: Yes Advanced Practice Provider documentation review:: Supervising physician onsite and consulted in the evaluation and care of this patient. The physician did have a face to face encounter with the patient.
[2019-05-02] MEDS ORDERED: APRESOLINE IV ONE (08:24)
[2019-05-02] MEDS ORDERED: NITROGLYCERIN ONE (08:32)
[2019-05-02] MEDS ORDERED: ASPIRIN ONE (08:32)
[2019-05-02 08:45] LABS: INR 0.92; PROTIME 13.1 Seconds (11.0-16.0)
[2019-05-02 08:46] LABS: PTT 25.6 Seconds (22.3-41.8)
[2019-05-02 08:55] LABS: ALB/GLOB RATIO 1.7; ALBUMIN 4.3 g/dL (3.5-5.0); CALCIUM 8.4 mg/dL (8.8-10.2); CREATININE 1.3 mg/dL (0.5-0.9); TOTAL BILIRUBIN 0.48 mg/dL (0.20-1.00); TOTAL PROTEIN 6.8 g/dL (6.3-8.3)
[2019-05-02 09:07] LABS: BASO# 0.02 X1000 (0.0-0.2); BASO% 0.1 % (0.0-0.8); EOS# 0.14 X1000 (0.0-0.7); EOS% 0.9 % (0.0-10.0); HEMATOCRIT 35.1 % (37.0-47.0); HEMOGLOBIN 11.2 g/dL (12.0-16.0); IMM GRAN# 0.14 X1000 (0.0-0.04); IMM GRAN% 0.9 % (0.0-0.5); LYMPH# 3.24 X1000 (1.2-3.4); LYMPH% 20.3 % (20.5-51.1); MCH 34.9 PG (27-31); MCHC 31.9 g/dL (33-37); MCV 109.3 FL (81-99); MONO# 1.07 X1000 (0.11-0.59); MONO% 6.7 % (1.7-9.3); MPV 9.8 FL (7.4-10.4); NEUT# 11.34 X1000 (1.4-6.5); NEUT% 71.1 % (42.2-75.2); PLT 508 X1000 (130-400); RBC 3.21 XMIL (4.2-5.4); RDW 22.2 % (11.5-14.5); WBC 15.95 X1000 (4.8-10.8)
--- NOTE | 2019-05-02 09:25 | Diag Imaging Result Doc PS360 ---
EXAM: CHEST-2 VIEWS HISTORY: cp TECHNIQUE: Chest two views COMPARISON: 02/23/2019 FINDINGS: The lungs are hyperexpanded. No cardiomegaly. No pleural effusions. Scarring versus tiny infiltrate in the left base. The vessels are small. IMPRESSION: 1.Emphysema 2.Scarring versus small infiltrate in the left lung base Electronically signed by Davon Scanlon 05/02/2019 9:22 AM
[2019-05-02 09:42] LABS: CK INDEX 4.5 (0.0-2.5); CK-MB 8.36 ng/mL (0.0-5.0)
[2019-05-02] MEDS ORDERED: PREDNISONE PO SCH (09:52)
[2019-05-02] MEDS ORDERED: BUSPAR PO PRN (09:52)
[2019-05-02] MEDS ORDERED: HYDREA PO SCH (09:52)
[2019-05-02] MEDS ORDERED: TYLENOL PO PRN (09:52)
--- NOTE | 2019-05-02 10:18 | Diag Imaging Result Doc PS360 ---
EXAM: US ABDOMEN-COMPLETE HISTORY: Epigastric pain/ chest pain with elevated LFTs TECHNIQUE: Abdominal ultrasound COMPARISON: None. FINDINGS: Normal pancreas. No abdominal aortic aneurysm. Mild atherosclerosis. Normal inferior vena cava. No focal hepatic abnormality. The gallbladder has been removed. The common bile duct measures 10 mm. Increased renal echotexture. There is a 3.9 cm right renal cyst. No hydronephrosis. Normal spleen. No ascites. IMPRESSION: 1.Increased renal echotexture consistent with medical renal disease. There is also right renal cyst 2.Cholecystectomy Electronically signed by Davon Scanlon 05/02/2019 10:15 AM
[2019-05-02] MEDS ORDERED: MAGNESIUM SULFATE 2 GM/S.W.I. 2 GM/50 ML IVPB IV ONE (10:26)
[2019-05-02] MEDS: NITROGLYCERIN TOP SCH ×4 (11:46→21:54)
[2019-05-02] MEDS: ADVAIR 250/50 DISKUS INH SCH ×2 (12:15→19:26)
[2019-05-02 12:55] LABS: URINE SOURCE CLEAN CATCH
[2019-05-02 13:00] LABS: BILIRUBIN URINE NEGATIVE (NEGATIVE); BLOOD URINE TRACE (NEGATIVE); COLOR YELLOW; GLUCOSE URINE NEGATIVE (NEGATIVE); KETONE URINE NEGATIVE (NEGATIVE); LEUKOCYTES URINE NEGATIVE (NEGATIVE); NITRITE URINE NEGATIVE (NEGATIVE); PH URINE 5.5; PROTEIN URINE TRACE mg/dL (NEGATIVE); SP GRAVITY URINE 1.009; TURBIDITY URINE CLEAR (CLEAR); UR EPITHELIAL CELLS <10 /HPF (<10); URINE BACTERIA NEGATIVE /HPF; URINE RBC <10 /HPF (<10); URINE WBC <10 /HPF (<10); UROBILINOGEN URINE NORMAL (NORMAL)
--- NOTE | 2019-05-02 14:56 | CARDIOLOGY CONSULTATION ---
DATE: 05/02/2019 INDICATION FOR THE CONSULTATION: Chest pain. HISTORY OF PRESENT ILLNESS: Ms. Tracy is a 78-year-old female with a history of peripheral vascular disease and cholecystectomy. She presented for evaluation of chest discomfort that felt like a squeezing discomfort located in her sternal area, as well as upper epigastric area. It persisted for an hour or more this morning when it woke her from sleep. She cannot recall any specific provoking or palliating features. It subsequently resolved, and she had another bout that lasted around 10 minutes. She had some associated nausea and diaphoresis, but otherwise no other symptoms. No shortness of breath. She has had some diarrhea over the last several days, but yesterday otherwise was not having any problems. She has recently been diagnosed with polymyalgia rheumatica in the last several weeks or so and has been on steroids for this. PAST MEDICAL AND SURGICAL HISTORY: 1. Significant for peripheral vascular disease managed by Dr. Vincent in [place]. She has had several stents to her bilateral lower extremities with the most recent procedure in 2017 involving an intervention to the right common femoral. Her most recent heart catheterization was performed in May 2014. This demonstrated essentially angiographically normal coronaries with the exception of very minor disease in the right coronary. 2. Hyperlipidemia. 3. Bilateral carotid disease with, I believe, a left carotid endarterectomy. 4. Hyperlipidemia. 5. Renal insufficiency. 6. Essential thrombocythemia. 7. Previous tobacco use. SOCIAL HISTORY: Previous smoker at 1 pack per day until apparently quitting earlier this year. Rare alcohol. No illicit drug use. 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 FAMILY HISTORY: Father at age 66 secondary to prostate cancer and a pulmonary embolism. Mother at 62 due to an CA/stroke. History of diabetes, hypertension, hyperlipidemia. REVIEW OF SYSTEMS: A 10-system review of systems is negative except for those things mentioned in HPI. PHYSICAL EXAMINATION: Vital Signs: She is afebrile. Heart rate is 78. Her blood pressure is 187/48; on presentation it was 226/71. General: She is in no acute distress. HEENT: Oropharynx is moist. Normal dentition. Eye examination is pink conjunctivae. White sclerae. Neck: Examination shows no obvious thyromegaly or thyroid tenderness. Cardiovascular: She sounds to be in a regular rate and rhythm. She has no obvious murmurs. She has no S3. She has no lower extremity edema. Chest: Exam is clear bilaterally. She has no increased work of breathing. Abdomen: Soft, nontender, nondistended. She has no obvious organomegaly. Skin: Exam is warm and dry throughout without any rashes. Neurological: She is moving all extremities well. She has no lateralizing deficits. PERTINENT DATA: Her EKG shows sinus rhythm. No obvious ischemic changes. She had an abdominal ultrasound demonstrating increased renal echotexture consistent with medical renal disease, as well as a right renal cyst. Previous cholecystectomy noted. Chest x-ray demonstrates emphysema with scarring versus a small infiltrate in the left lung base. Her lab data shows a white count of 15.9, hematocrit of 35, platelet count of 508,000. INR 0.9. Sodium 143, potassium 4, BUN 28, creatinine is 1.3, AST 311, ALT 180, magnesium level 1.1. CK 186, MB 8.3, CK 4.5, proBNP 3320. ASSESSMENT: Ms. Tracy is a 78-year-old female who presented with chest pain. PLAN: She had an echocardiogram performed in January 2019 that demonstrated an EF of 50% with anterior septal hypokinesis. Her lab abnormalities could be secondary to the steroids, including the LFT abnormalities, as well as the CK; however, with her extensive history of peripheral vascular disease and smoking history, as well as wall motion abnormality noted on her previous echocardiogram, I would likely favor performing a cardiac catheterization in this patient. She has a repeat echocardiogram being performed. If this continues to show wall motion abnormalities, we will likely proceed with catheterization. If it is relatively normal, then we may consider nuclear scanning. We will follow up with the results of the echocardiogram. cc: MD Alek Gan MD
--- NOTE | 2019-05-02 15:59 | HISTORY AND PHYSICAL ---
PRIMARY CARE PHYSICIAN: Dr. Alek Lopes. CHIEF COMPLAINT: Chest pain. HISTORY OF PRESENT ILLNESS: A 78-year-old white female with a complicated past medical history presents for evaluation of above-mentioned symptoms. Current history of present illness began this morning. Patient states she awoke at approximately 5 a.m. with chest discomfort. She describes the location as substernal. The character was described as a pressure. She had associated nausea and diaphoresis. She denied vomiting, palpitations, shortness of breath, dyspnea on exertion or PND. The patient states the pain lasted approximately 25 to 30 minutes. This subsequently resolved spontaneously. The patient states that she nacho from bed at approximately 5:30. Upon walking to the restroom, she had a recurrence of pain. This pain lasted approximately 10 minutes. With this recurrence, patient chose to go to the emergency department for further evaluation and management. Upon arrival, a full evaluation was pursued. EKG demonstrated no significant signs of ischemia. CK level returned slightly elevated with a slightly elevated CK-MB. Troponin, however, was within normal limits. The patient's alkaline phosphatase and transaminases were noted to be significantly elevated, up from last visit. The patient will be admitted to the hospital for full evaluation and management of each of these conditions. Of note, in addition to chest discomfort and associated symptoms, patient has a longstanding history of COPD. She is being treated with aggressive intervention. She also has recently been diagnosed with polymyalgia rheumatica. She is being treated with steroid therapy. Unfortunately, she is having some difficulty with tolerability. Over last week, she also has noted intermittent diarrhea. She denies hematochezia or melena associated. PAST MEDICAL HISTORY: 1. Anemia. 2. Carotid artery disease. 3. Cholelithiasis status post laparoscopic cholecystectomy in 2017. 4. Chronic kidney disease with creatinine ranging between 1.4 and 1.6. 5. Chronic obstructive pulmonary disease. 6. Diverticulosis. 7. Depression. 8. Diabetes. 9. Reflux disease. 10. Hypertension. 11. Hypertriglyceridemia. 12. Essential thrombocytosis. 13. Gout. 14. Hiatal hernia. 15. Hyperlipidemia. 16. Chronic hypoxemia requiring nocturnal oxygen. 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 18. Low back pain. 19. Menopause. 20. Intermittent muscle spasms. 21. Longstanding history of tobacco use. 22. Osteoarthritis. 23. Peripheral artery disease. 24. History of pulmonary nodule. 25. Intermittent dizziness. 26. History of stroke in 2001. 27. Urinary incontinence. 28. Ureterovaginal prolapse status post BOSSMAN/BSO. CURRENT MEDICATIONS: 1. Clonazepam 0.25 mg 1/2 to 1 tablet twice daily as needed. 2. Telmisartan 40 mg daily. 3. Prednisone 20 mg daily. 4. Hydrea 500 mg alternating with 1000 mg every other day. 5. Atenolol 50 mg at bedtime. 6. Buspirone 5 mg 3 times daily as needed. 7. Amlodipine 5 mg daily. 8. Colace 100 mg twice daily as needed. 9. Guaifenesin 400 mg twice daily as needed. 10. Turmeric 500 mg as needed. 11. Tylenol 325 mg 1 to 2 tabs every 4-6 hours as needed. 12. Vitamin B complex. 13. Vitamin C 500 mg daily. 14. Ipratropium bromide and albuterol 4 times daily. 15. Nexium 40 mg daily. 16. ProAir HFA as needed. 17. Wellbutrin 300 mg daily. 18. Advair 500/50 one puff twice daily. 19. Aspirin 81 mg daily. ALLERGIES: The patient states she is allergic to Crestor, which causes myalgias, Demerol which causes shortness of breath, fenofibrate which causes arthralgias, Keflex which causes a rash, clonazepam which causes prolonged somnolence at high dosages, pravastatin which causes myalgias and arthralgias, and high dose prednisone which causes jitteriness. SOCIAL HISTORY: The patient is a former smoker beginning in her early 30s. She smoked 1 pack per day since that time. She recently discontinued this habit. She rarely uses alcohol. She denies illicit drug use. 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 She enjoys shopping and reading. She exercises routinely. FAMILY HISTORY: Patient's father passed at age 66 secondary to complications of prostate cancer and a pulmonary thromboembolism. Patient's mother passed at age 62 secondary to complications of acute myocardial infarction/stroke. She had a history of diabetes, hypertension, and hyperlipidemia. REVIEW OF SYSTEMS: A 12 point review of systems was performed. Pertinent positives and negatives noted in history present illness. PHYSICAL EXAMINATION: Temperature 97.7, heart rate 81, respirations 18, blood pressure is 187/48. GENERAL: Chronically ill appearing, no acute distress. HEENT: Normocephalic, atraumatic. Pupils equal, round, react to light. Extraocular muscles intact. Sclerae anicteric. [place] conjunctivae. Oral and nasopharynx clear without exudate. NECK: Supple. No lymphadenopathy. No thyromegaly. No bruits auscultated. CARDIOVASCULAR: Regular rate and rhythm. No significant murmurs, rubs, or gallops. PULMONARY: Clear to auscultation bilaterally, prolonged expiratory phase. ABDOMEN: Soft, nontender, nondistended. Positive bowel sounds. EXTREMITIES: Moves all extremities well. No significant clubbing, cyanosis, or edema. NEUROLOGIC: Cranial nerves 2-12 grossly intact. Motor and sensory grossly intact. PSYCHOLOGIC: Appropriate. LABORATORY DATA: White blood cell count 15.95, hemoglobin 11.2, hematocrit 35.1, platelet count 508,000. PT 13.1, INR 0.92, PTT is 25.6. Sodium 143, potassium 4.0, chloride 105, bicarb 23, BUN 28, creatinine 1.3, glucose 89, calcium 8.4, total bilirubin 0.48, total protein 6.8, albumin 4.3, alkaline phosphatase 226, AST 311, ALT 180. Chest x-ray revealed emphysema and scarring versus small infiltrate at the left base. ASSESSMENT AND PLAN: A 78-year-old white female with a complicated past medical history presents for evaluation of chest discomfort. The patient has multiple risk factors for cardiac disease, including advanced vascular disease, prolonged tobacco use, hyperlipidemia, hypertension, and diabetes. While in the setting of elevated liver enzymes, this would suggest the possibility of gastrointestinal etiology, her risk factors are quite concerning. The patient will be admitted to the hospital for full evaluation and management of both GI and cardiac possibilities. 1. Admit to General Medicine. 2. Chest pain/unstable angina-as above, this likely represents either cardiac or gastrointestinal etiology. We will consult Dr. Hansen with Cardiology for further assistance. We will follow serial cardiac enzymes. Abdominal ultrasound revealed no evidence of significant abnormalities. This would suggest this not to be gastrointestinal in etiology or the patient has passed the potential retained stone. We will follow serial transaminases and alkaline phosphatase. We will continue supportive care. 3. Transaminitis with elevated alkaline phosphatase-as above, this is concerning for possible biliary etiology. We will also remain aware that this could also be from a cardiac source, although this seems less likely. We will follow serial examinations. Symptoms are improving. 4. Hypertension. Patient's blood pressure is grossly elevated. We will resume patient's home medications. A dose of hydralazine was given while in the emergency department. We will follow this. 5. Polymyalgia rheumatica-patient will be continued on prednisone therapy. Symptoms are currently under reasonable control. 6. Carotid artery disease/peripheral artery disease-we will continue to optimize the patient's medical and nonmedical management. 7. Chronic kidney disease-patient's creatinine is reasonably controlled at present time. We will continue her home regimen. 8. Hyperlipidemia/hypertriglyceridemia-patient is unable to tolerate statin intervention. We will remain aware. 9. Thrombocytosis-we will continue patient on Hydrea as prescribed per Dr. Ortiz. 10. Anxiety/depression-we will continue patient on her home medications. 11. Weakness-once cardiac etiology has been ruled out, we will encourage activity. We will follow this. 12. Fluid, electrolytes, nutrition. We will monitor electrolytes, saline lock IV, NPO for now. 13. Prophylaxis. Patient will be placed on subcu Lovenox. cc: Alek Lopes MD
[2019-05-02] MEDS: DUONEB (A & A) INH SCH ×2 (16:35→21:35)
[2019-05-02] MEDS: PATIENT'S OWN MED PO SCH (18:19)
[2019-05-02] MEDS: WELLBUTRIN XL PO SCH (18:19)
[2019-05-02] MEDS: LOVENOX SUBQ SCH (20:40)
[2019-05-02] MEDS: TENORMIN PO SCH (20:40)
[2019-05-02] MEDS: TYLENOL PO PRN (21:39)
[2019-05-03] MEDS: DUONEB (A & A) INH SCH ×4 (03:30→20:02)
[2019-05-03] MEDS: NITROGLYCERIN TOP SCH ×4 (04:01→22:32)
[2019-05-03] MEDS: PRILOSEC PO SCH (06:04)
[2019-05-03 07:13] LABS: BASO# 0.03 X1000 (0.0-0.2); BASO% 0.2 % (0.0-0.8); EOS# 0.15 X1000 (0.0-0.7); EOS% 1.1 % (0.0-10.0); HEMATOCRIT 32.1 % (37.0-47.0); HEMOGLOBIN 10.3 g/dL (12.0-16.0); IMM GRAN# 0.07 X1000 (0.0-0.04); IMM GRAN% 0.5 % (0.0-0.5); LYMPH# 1.68 X1000 (1.2-3.4); MCH 34.8 PG (27-31); MCHC 32.1 g/dL (33-37); MCV 108.4 FL (81-99); MONO# 1.15 X1000 (0.11-0.59); MONO% 8.2 % (1.7-9.3); MPV 9.8 FL (7.4-10.4); NEUT# 10.91 X1000 (1.4-6.5); PLT 475 X1000 (130-400); RBC 2.96 XMIL (4.2-5.4); RDW 22.3 % (11.5-14.5); WBC 13.99 X1000 (4.8-10.8)
[2019-05-03 07:32] LABS: CREATININE 1.2 mg/dL (0.5-0.9); POTASSIUM 3.8 mmol/L (3.5-5.1)
[2019-05-03 07:33] LABS: ALB/GLOB RATIO 1.4; ALBUMIN 3.6 g/dL (3.5-5.0); CALCIUM 8.3 mg/dL (8.8-10.2); TOTAL BILIRUBIN 0.39 mg/dL (0.20-1.00); TOTAL PROTEIN 6.1 g/dL (6.3-8.3)
[2019-05-03] MEDS ORDERED: ZANAFLEX PO PRN (07:42)
[2019-05-03] MEDS ORDERED: ZANAFLEX PO ONE (07:42)
[2019-05-03] MEDS: ADVAIR 250/50 DISKUS INH SCH ×2 (08:31→20:05)
[2019-05-03] MEDS ORDERED: PREDNISONE PO SCH (09:00)
[2019-05-03] MEDS ORDERED: MICARDIS PO SCH (09:00)
[2019-05-03] MEDS ORDERED: NORVASC PO SCH (09:00)
[2019-05-03] MEDS ORDERED: HYDREA PO SCH (09:00)
[2019-05-03] MEDS: WELLBUTRIN XL PO SCH (09:06)
[2019-05-03] MEDS: PATIENT'S OWN MED PO SCH (09:12)
[2019-05-03] MEDS: ASPIRIN PO SCH (09:19)
--- NOTE | 2019-05-03 13:46 | ECHO REPORT ---
ORDER DATE: 05/03/2019 INDICATION: Chest pain. FINDINGS: 1. The right atrium appears normal in size. 2. Mild tricuspid regurgitation. RV systolic pressure of 41. 3. Normal RV size and systolic function. 4. Mild pulmonic insufficiency. 5. Mild left atrial enlargement with a dimension of 4.3 cm. 6. No mitral valve prolapse. Mild mitral regurgitation. No evidence of mitral stenosis. 7. Normal LV size, end-diastolic dimension of 4.5. Normal wall thicknesses with a posterior and interventricular septal wall thickness of 1.0 and 1.1 cm respectively. Normal LV size with an end-diastolic dimension of 4.5. Normal wall thicknesses with a posterior and interventricular septal wall thickness of 1.0 and 1.1 cm respectively. Normal LV systolic function. Calculated EF of 64%. Definity echo contrast was used. There was no clear evidence of segmental wall motion abnormalities. 8. Aortic valve opens well with no evidence of stenosis or insufficiency. 9. Aorta appears normal in visualized segments. 10. There is a suggestion of a small anterior echo-free space suggestive of possible pericardial effusion. This was identified on a previous study in January of 2019. There is no evidence of tamponade. cc: MD Alek Gan MD
--- NOTE | 2019-05-03 15:14 | CARDIOLOGY PROGRESS NOTE ---
DATE: 05/03/2019 SUBJECTIVE: Ms. Tracy reports she feels well today. She has no significant complaints other than continued pain in her left leg. OBJECTIVE: Vital signs: She is afebrile. Heart rate 87, blood pressure 116/41. General: She is in no acute distress. Cardiovascular: She sounds to be in a regular rate and rhythm. I do not hear any obvious murmurs. She has no S3. She has no lower extremity edema. Chest: Clear bilaterally. PERTINENT DATA: White count 13.9. Hematocrit 32, platelet count 475,000. Sodium 140, potassium 3.8, BUN 28, creatinine is 1.2. Her AST is 137 with an ALT of 209. Significant decrease in the AST with a mild increase in the ALT. Alkaline phosphatase is essentially stable. Her cardiac enzymes, specifically her troponin was negative times multiple sets. ASSESSMENT: Ms. Tracy is a 78-year-old female who presented with episodes of chest pain. PLAN: Her echocardiogram was unremarkable with a preserved ejection fraction. She did have a small anterior pericardial effusion which was stable since January of 2019. We will proceed with myocardial perfusion imaging in the morning. If this is okay then most likely the etiology of her CK elevation and transaminases issues are related to her chronic steroid use. Myocardial perfusion imaging ordered for the morning. cc: MD Alek Gan MD
[2019-05-03] MEDS: TYLENOL PO PRN (16:07)
--- NOTE | 2019-05-03 21:40 | PROGRESS NOTE ---
DATE: 05/03/2019 SUBJECTIVE: Upon arriving this morning, patient states she slept reasonably well overnight. Throughout the day, patient denied significant chest discomfort or epigastric pain. The patient had an echocardiogram, which revealed no significant abnormalities. Oral intake has been reasonable. She denies fevers, chills, nausea, or vomiting. Shortness of breath is at baseline. OBJECTIVE: T-max 98.8, heart rate 74-81, respirations 16-19, blood pressure 99 to 170 over 41 to 49.General: Chronically ill appearing, no acute distress. Cardiovascular: Regular rate and rhythm. No significant murmurs, rubs, or gallops. Pulmonary: Prolonged expiratory phase. Adequate air movement. Abdomen: Soft, nontender, nondistended. Positive bowel sounds. Extremities: Moves all extremities well. No significant clubbing, cyanosis, or edema. Dermatologic: Evaluation reveals no evidence of rash. LABORATORY DATA: White blood cell count 13.99, hemoglobin 10.3, hematocrit 32.1, platelet count is 475,000. Sodium 140, potassium 3.8, chloride 104, bicarbonate 23, BUN 28, creatinine 1.2, glucose 107, calcium 8.3. Total bilirubin 0.39, total protein 6.1, albumin 3.6, alkaline phosphatase 218, AST 137, ALT 209. ASSESSMENT AND PLAN: 1. Chest discomfort/unstable angina. I appreciate Dr. Hansen's consultation. We will plan stress testing in the a.m. Depending on this, we will determine if further cardiac evaluation with left heart catheterization is appropriate. 2. Transaminitis with elevated alkaline phosphatase. This is quite curious. While this could be cardiac in etiology, I am concerned that patient may have passed a retained stone. We will continue to follow serial liver function evaluations. At present time, she is asymptomatic. 3. Hypertension. The patient's blood pressure continues to have significant lability, but reasonable control. We will continue her current regimen. 4. Polymyalgia rheumatica. Symptoms are reasonably stable with prednisone therapy. 5. Carotid artery disease. Patient has longstanding disease. We will continue to optimize the patient's medical and nonmedical management. 6. Chronic kidney disease. The patient's creatinine remains stable. Ultrasound from yesterday suggested changes consistent with medical renal disease. 7. Hyperlipidemia. The patient is unable to tolerate statin intervention. We will remain aware. 8. Thrombocytosis. The patient is being treated with Hydrea per Dr. Ortiz. Platelet count is acceptable. 9. Anxiety/depression. We will continue home medications. 10. Weakness. The patient continues to demonstrate weakness, however, stability. We will plan to initiate increased activity once cardiac chest pain has been ruled out. 11. Disposition. At this point, patient continues to require correction care in a hospital setting. We will plan discharge home once appropriate. cc: Alek Lopes MD
[2019-05-03] MEDS: LOVENOX SUBQ SCH (22:31)
[2019-05-03] MEDS: TENORMIN PO SCH (22:32)
[2019-05-04] MEDS: DUONEB (A & A) INH SCH ×3 (03:25→15:11)
[2019-05-04] MEDS: NITROGLYCERIN TOP SCH (05:19)
[2019-05-04] MEDS: PRILOSEC PO SCH (06:16)
[2019-05-04 06:54] LABS: BASO# 0.01 X1000 (0.0-0.2); BASO% 0.1 % (0.0-0.8); EOS# 0.05 X1000 (0.0-0.7); EOS% 0.3 % (0.0-10.0); HEMATOCRIT 31.4 % (37.0-47.0); HEMOGLOBIN 10.1 g/dL (12.0-16.0); IMM GRAN# 0.07 X1000 (0.0-0.04); IMM GRAN% 0.4 % (0.0-0.5); LYMPH# 2.19 X1000 (1.2-3.4); LYMPH% 11.8 % (20.5-51.1); MCH 35.2 PG (27-31); MCHC 32.2 g/dL (33-37); MCV 109.4 FL (81-99); MONO# 0.91 X1000 (0.11-0.59); MONO% 4.9 % (1.7-9.3); MPV 9.9 FL (7.4-10.4); NEUT# 15.35 X1000 (1.4-6.5); NEUT% 82.5 % (42.2-75.2); PLT 487 X1000 (130-400); RBC 2.87 XMIL (4.2-5.4); RDW 22.3 % (11.5-14.5); WBC 18.58 X1000 (4.8-10.8)
[2019-05-04 06:56] LABS: ALB/GLOB RATIO 1.4; ALBUMIN 3.5 g/dL (3.5-5.0); CALCIUM 8.2 mg/dL (8.8-10.2); CREATININE 1.7 mg/dL (0.5-0.9); POTASSIUM 3.7 mmol/L (3.5-5.1); TOTAL BILIRUBIN 0.25 mg/dL (0.20-1.00)
[2019-05-04] MEDS ORDERED: LEXISCAN ONE (08:06)
[2019-05-04] MEDS ORDERED: PREDNISONE PO SCH (09:00)
[2019-05-04] MEDS ORDERED: HYDREA PO SCH (09:00)
[2019-05-04] MEDS: ADVAIR 250/50 DISKUS INH SCH (09:33)
[2019-05-04] MEDS: WELLBUTRIN XL PO SCH (13:54)
[2019-05-04] MEDS: ASPIRIN PO SCH (13:56)
[2019-05-04] MEDS: PATIENT'S OWN MED PO SCH (13:57)
[2019-05-04 15:25] VITALS: BP 177/48
--- NOTE | 2019-05-04 19:22 | Diag Imaging Result Document ---
PROCEDURE NAME: MYOCARDIAL PERF SCAN, STR/REST - 05/04/2019 INDICATION: Chest pain. REQUESTING PHYSICIAN: Dr. Alek Lopes. DESCRIPTION: The patient came in to the nuclear lab and received rest injection of technetium 99 sestamibi 11.1 mCi. Multiple tomographic views of the cardiac structures were obtained at rest. Subsequently the patient underwent a Lexiscan protocol with 0.4 mg of Lexiscan infused. At peak infusion, he was injected with technetium 99 sestamibi 31.2 mCi. Multiple tomographic views of the cardiac structures were obtained following completion of the exercise protocol. SUMMARY OF THE ELECTROCARDIOGRAPHIC PORTION OF THE STUDY: Resting ECG showed sinus rhythm. Rate was 81 beats per minute. Resting blood pressure was 153/65. Resting ECG showed no significant abnormality. During the protocol, the heart rate increased to 98 beats per minute. Her blood pressure went up to 172/61. ECG showed no significant changes. The patient reported no significant symptoms. Following completion of the test, heart rate and blood pressure returned back to baseline. In summary, the electrocardiographic response to infusion of Lexiscan is normal. SUMMARY OF THE MYOCARDIAL PERFUSION PORTION OF THE STUDY: Post-stress tomographic views of the left ventricle showed normal homogeneous distribution of radiotracer throughout the entire left ventricular myocardium. There was no evidence of any post-stress defect. Rest images showed normal perfusion. The polar plots revealed the same. There was no evidence of any inducible ischemia. No myocardial scar. Gated SPECT showed normal left ventricular systolic function with an ejection fraction of 54%. No wall motion abnormality. Using the Myometrix protocol, ejection fraction was 58%. The lung/heart ratio is normal at 0.31. The TID is normal at 1.03. SUMMARY: This study shows: 1. Normal electrocardiographic response to infusion of Lexiscan. 2. Normal post-stress myocardial perfusion scan. There is no scintigraphic evidence of pharmacologically induced myocardial ischemia. 3. Normal left ventricular systolic function with ejection fraction of 54% to 58%. No wall motion abnormality noted. Clinical correlation recommended. cc: MD Trevor Alexander MD
--- NOTE | 2019-05-04 21:09 | CARDIOLOGY PROGRESS NOTE ---
DATE: 05/04/2019 SUBJECTIVE: Ms. Jaime has not had any chest pain overnight. OBJECTIVE: She is afebrile. Heart rate 75, blood pressure 109/56.General: She is in no acute distress. Cardiovascular: She sounds to be in a regular rate and rhythm. She has no murmurs. She has no S3. She has no lower extremity edema. Chest Exam: Clear bilaterally. She has no increased work of breathing. Abdomen: Soft, nontender. PERTINENT DATA: BUN and creatinine are 39 and 1.7, respectively. Echocardiogram demonstrated a normal ejection fraction with no evidence of segmental abnormalities. Nuclear scan demonstrated a small area of reversibility noted in the mid anterior septal. ASSESSMENT: Ms. Jaime is a 78-year-old female who presented with some chest discomfort that felt like a squeezing in her midsternal area as well as the epigastric area. PLAN: She has a relatively small area of ischemia that would suggest a possible septal branch. At this point, we will titrate her antianginals. I will decrease her telmisartan to 20 mg and increase her amlodipine to 10 as she is already on atenolol. We will continue on these medications for the time being. I will have her follow up in the office and we will pursue from there. She continues on aspirin therapy. cc: MD Alek Gan MD
[2019-05-05] MEDS ORDERED: MICARDIS PO SCH (09:00)
[2019-05-05] MEDS ORDERED: NORVASC PO SCH (09:00)
--- NOTE | 2019-05-06 04:10 | DISCHARGE SUMMARY ---
ADMISSION DATE: 05/02/2019 DISCHARGE DATE: 05/04/2019 ADMISSION DIAGNOSES: Chest pain. DISCHARGE DIAGNOSES: 1. Chest discomfort/unstable angina. 2. Transaminitis with elevated alkaline phosphatase, likely secondary to biliary etiology. 3. Hypertension, present on arrival. 4. Polymyalgia rheumatica, present on arrival. 5. Carotid artery disease, present on arrival. 6. Chronic kidney disease, present on arrival. 7. Hyperlipidemia, present on arrival. 8. Thrombocytosis, present on arrival. 9. Anxiety/depression, present on arrival. 10. Weakness, present on arrival. CONSULTATIONS: Dr. Hansen with Cardiology was consulted for further evaluation and management of chest discomfort. PROCEDURES: 1. A chest x-ray was performed on 05/02/2019, which revealed emphysema. Scarring versus small infiltrate in the left lung base. 2. Abdominal ultrasound was performed on 05/02/2019, which revealed increased renal echotexture consistent with medical renal disease. There is also a right renal cyst. Cholecystectomy 3. An echocardiogram was performed on 05/03/2019, which revealed normal RV size and systolic function. Mild pulmonic insufficiency. Mild left atrial enlargement. Mild mitral regurgitation. Left ventricular ejection fraction of 64%. No evidence of segmental wall motion abnormalities. Small anterior echo-free space suggestive of a possible pericardial effusion. This was identified on a previous study in January 2019. 4. Myocardial perfusion scan was performed on 05/04/2019, which revealed normal echocardiographic response to infusion of Lexiscan. Normal post-stress myocardial perfusion scan. There is no evidence of pharmacologically induced myocardial ischemia. Normal left ventricular systolic function with ejection fraction of 55% to 58%. No wall motion abnormality. HISTORY AND PHYSICAL EXAMINATION: See admit note. PHYSICAL EXAMINATION PRIOR TO DISCHARGE: Temperature 98.1 degrees, heart rate 93, respirations 16, blood pressure is 177/48. General: Chronically ill appearing, no acute distress. Cardiovascular: Regular rate and rhythm. No significant murmurs, rubs, or gallops. Pulmonary: Prolonged expiratory phase. Adequate air movement. Abdomen: Soft, nontender, nondistended. Positive bowel sounds. Extremities: Moves all extremities well. No significant clubbing, cyanosis, or edema. Dermatologic: No evidence of rash. LABORATORY DATA: White blood cell count 18.58, hemoglobin 10.1, hematocrit 31.4, platelet count is 487,000. Sodium 136, potassium 3.7, chloride 102, bicarbonate 21, BUN 39, creatinine 1.7, glucose 83, calcium 8.2. Total bilirubin 0.25, total protein 6.0, albumin 3.5, alkaline phosphatase 185, AST 48, ALT 39. HOSPITAL COURSE: Patient was admitted as per history and physical examination. Hospital course per condition is as follows. 1. Chest pain/unstable angina- Upon admission, patient was noted to have considerable chest discomfort. This was located in the substernal region, but also in the epigastric region. The patient was noted to have a slightly elevated CK level and slightly elevated CK-MB with normal troponin upon admission. In the setting of significant vascular disease, it was felt cardiology consultation was most appropriate. Full cardiac evaluation including echocardiogram and stress testing returned as described above. It was felt maximizing her medical management was most appropriate. No evidence of active ischemia was identified. The patient will be discharged home with medication adjustments including increasing Norvasc and decreasing telmisartan. We will follow patient's clinical course closely as an outpatient. 2. Transaminitis with elevated alkaline phosphatase. This was diagnosed upon admission. I am concerned this may have represented a retained stone. Patient's numbers are trending downwards. Abdominal ultrasound returned within normal limits. At this point, I feel supportive care is most appropriate. Should her condition return, we will need to consider an MRCP for further evaluation and management. 3. Hypertension. Patient's blood pressure was reasonably controlled while hospitalized. As above, medication adjustments will be made as an outpatient. We will remain aware that patient has developed lower extremity edema with increasing doses of amlodipine in the past. If this is the case, then we will consider alternative intervention. 4. Polymyalgia rheumatica. The patient has significant disease. She currently is being treated with prednisone 10 mg alternating with 15 mg daily. This was continued while hospitalized with reasonable response. 5. Carotid artery disease. Patient has longstanding disease. She was treated with optimum medical and nonmedical management while hospitalized. 6. Chronic kidney disease. The patient's creatinine upon admission was 1.3. She increased to 1.7 prior to discharge. We will plan to recheck a creatinine within the next several days. 7. Thrombocytosis. The patient has longstanding disease. She was treated with Hydrea while hospitalized. We will encourage followup with Dr. Ortiz as an outpatient. 8. Anxiety/depression. Patient recently discontinued Wellbutrin therapy. Her symptoms remained under reasonable control with as-needed BuSpar therapy. 9. Weakness. Patient continued to remain reasonably controlled while hospitalized. We will continue to encourage activity. DISCHARGE CONDITION: Good. DISPOSITION: Discharge to home. MEDICATIONS: 1. Acetaminophen 650 mg every 4 hours as needed. 2. Amlodipine 5 mg twice daily. 3. Aspirin 81 mg daily. 4. Atenolol 50 mg at bedtime. 5. BuSpar 5 mg 3 times daily as needed. 6. Advair 250/50 one puff twice daily. 7. Hydroxyurea 500 mg alternating with 1000 mg daily. 8. DuoNeb 4 times daily. 9. Omeprazole 40 mg daily. 10. Prednisone 15 mg alternating with 10 mg daily. 11. Telmisartan 20 mg daily. 12. Zanaflex 4 mg every 8 hours as needed. 13. Clonazepam 0.25 mg 1/2 to 1 tablet twice daily as needed. 14. B-complex vitamin daily. FOLLOWUP: The patient has a followup with me within the next week. At that time, we will recheck a CMP for evaluation of renal function and liver function. cc: Alek Lopes MD MTDD
== END 2019-05-04 18:58 | disposition home or self-care (01) | DRG 303 ==
LOC: ED 07:26 → 3N 09:31 → 4N 10:27
PROVIDERS: ADMIT Internal Medicine; ATTEND Internal Medicine
CPT/HCPCS: 71020; 71046; 76700; 78452; 80053; 81001; 82550; 82553; 83690; 83735; 83880; 84443; 84484; 85025; 85610; 85730; 93005; 93017; 93306; 94640; 94761; 94799; A9270; A9500; C8929; J0360; J1650; J2785; J3475; J7506; J7512; Q9957; S0176

== ENCOUNTER 2019-06-05 08:40 | Inpatient (IN) ==
[2019-06-05] MEDS ORDERED: NS 1,000 ML IV PRN (09:00)
--- NOTE | 2019-06-05 09:39 | Diag Imaging Result Doc PS360 ---
EXAM: CHEST-PORTABLE 06/05/2019 HISTORY: stroke like symptoms TECHNIQUE: AP portable at 0930 COMMENT: There is alveolar opacity in the retrocardiac left lower lobe which is worse than on 05/02/2019. The left hemidiaphragm is completely obscured. IMPRESSION: Left lower lobe pneumonia. Electronically signed by Ion Olivera 06/05/2019 9:37 AM
[2019-06-05 09:40] LABS: BASO# 0.03 X1000 (0.0-0.2); BASO% 0.2 % (0.0-0.8); EOS# 0.07 X1000 (0.0-0.7); EOS% 0.4 % (0.0-10.0); HEMATOCRIT 25.7 % (37.0-47.0); HEMOGLOBIN 8.1 g/dL (12.0-16.0); IMM GRAN# 0.24 X1000 (0.0-0.04); IMM GRAN% 1.3 % (0.0-0.5); LYMPH# 1.75 X1000 (1.2-3.4); LYMPH% 9.8 % (20.5-51.1); MCH 36.8 PG (27-31); MCHC 31.5 g/dL (33-37); MCV 116.8 FL (81-99); MONO# 1.52 X1000 (0.11-0.59); MONO% 8.5 % (1.7-9.3); MPV 9.9 FL (7.4-10.4); NEUT# 14.18 X1000 (1.4-6.5); NEUT% 79.8 % (42.2-75.2); PLT 348 X1000 (130-400); RDW 18.2 % (11.5-14.5); WBC 17.79 X1000 (4.8-10.8)
--- NOTE | 2019-06-05 09:44 | Diag Imaging Result Doc PS360 ---
EXAM: CT HEAD W/O CONTRAST 06/05/2019 HISTORY: BLURRED VISION TECHNIQUE: This exam was performed using automated exposure control, adjustment of mA or kV according to patient size, and/or use of iterative reconstruction technique. COMMENT: There is no evidence of mass effect, bleed, or abnormal extra-axial fluid collection. There is no evidence of sellar or suprasellar mass. There is patchy lucency in the periventricular white matter particularly in the frontal lobes. There has been no significant change in the appearance of the brain since the previous study of 06/09/2018 performed at [facility]. The bilateral maxillary sinusitis which was present at the time the previous study has resolved. IMPRESSION: Chronic ischemic microvascular change. No evidence of acute intracranial disease. Electronically signed by Ion Olivera 06/05/2019 9:41 AM
[2019-06-05 09:54] LABS: ALB/GLOB RATIO 1.6; ALBUMIN 3.2 g/dL (3.5-5.0); CALCIUM 8.7 mg/dL (8.8-10.2); CREATININE 1.7 mg/dL (0.5-0.9); POTASSIUM 5.2 mmol/L (3.5-5.1); TOTAL BILIRUBIN 0.49 mg/dL (0.20-1.00); TOTAL PROTEIN 5.2 g/dL (6.3-8.3)
[2019-06-05 09:57] LABS: INR 1.12; PROTIME 14.6 Seconds (11.0-16.0)
[2019-06-05 09:58] LABS: PTT 33.4 Seconds (22.3-41.8)
[2019-06-05] MEDS ORDERED: DUONEB (A & A) INH ONE (10:08)
[2019-06-05] MEDS ORDERED: LEVAQUIN 750 MG/D5W 750 MG/150 ML IVPB IV ONE (10:08)
--- NOTE | 2019-06-05 10:40 | EKG Report ---
Test Performed on : 06/05/2019 10:30:41 AM Test Reason : Stroke like symptoms Blood Pressure : / mmHG Vent. Rate : 073 BPM Atrial Rate : 073 BPM P-R Int : 162 ms QRS Dur : 072 ms QT Int : 386 ms P-R-T Axes : 074 012 054 degrees QTc Int : 425 ms Normal sinus rhythm. Possible Left atrial enlargement Borderline ECG When compared with ECG of 02-MAY-2019 07:31, (Unconfirmed) No significant change was found Unconfirmed Result
--- NOTE | 2019-06-05 10:57 | PROVIDER DOCUMENTATION ---
This chart was entered by Leisa Holman Scribe, acting as scribe for Abdelrahman Jiémnez MD. HPI-General Adult - General Chief Complaint: Stroke-Like Symptoms Stated Complaint: STROKE SYMPTOMS Time Seen by Provider: 06/05/19 09:48 Source: patient Allergies/Adverse Reactions: Patient Allergies Allergy/AdvReac Type Severity Reaction Status Date / Time meperidine HCl * Allergy Severe Respiratory Verified 07/03/18 20:08 [From Demerol] Distress cephalexin monohydrate * Allergy Mild RASH Verified 07/03/18 20:08 [From Keflex] clonazepam [From Klonopin] Allergy Unknown Verified 02/20/19 02:23 codeine Allergy Unknown Verified 07/03/18 20:09 fenofibrate Allergy Unknown Verified 02/20/19 02:23 Iodinated Contrast- Oral and Allergy Unknown Verified 07/03/18 20:09 IV Dye [IV Dye] pravastatin Allergy Unknown Verified 02/20/19 02:23 rosuvastatin [From Crestor] Allergy Unknown Verified 02/20/19 02:22 adhesive tape AdvReac RASH Verified 07/03/18 20:09 Home Medications: Home Medication List Medication Instructions Recorded Confirmed Last Taken Type Atenolol [Tenormin] 50 mg PO QHS #0 tablet 01/08/16 05/02/19 1 Day Ago Rx ~12/16/18 Buspirone [Buspar] 5 mg PO TID PRN PRN tablet 12/23/18 05/02/19 Unknown Rx Ipratropium/Albuterol Sulfate 3 ml INHALATION 4XDAY 02/19/19 05/02/19 Unknown History [Iprat-Albut 0.5-3(2.5) mg/3 ml] Acetaminophen [Tylenol] 650 mg PO Q4H PRN PRN tab 02/25/19 05/02/19 Unknown Rx Fluticasone/Salmet 250/50 INH 1 puff INH RTBID inhaler 02/25/19 05/02/19 Unknown Rx [Advair 250/50 Diskus] Aspirin 81 mg PO QAM 05/02/19 05/02/19 Unknown History Hydroxyurea [Hydrea] 1,000 mg PO EVERY OTHER DAY 05/02/19 05/02/19 Unknown History Hydroxyurea [Hydrea] 500 mg PO EVERY OTHER DAY 05/02/19 05/02/19 Unknown History Amlodipine Besylate [Norvasc] 5 mg PO BID #0 05/04/19 05/02/19 Unknown Rx Omeprazole [Prilosec] 40 mg PO DAILY@0700 cap 05/04/19 Unknown Rx Patient's Own Med 1 ea PO DAILY misc 05/04/19 Unknown Rx Prednisone 10 mg PO Q48H tab 05/04/19 Unknown Rx Prednisone 15 mg PO Q48H tab 05/04/19 Unknown Rx Telmisartan [Micardis] 20 mg PO QAM tab 05/04/19 Unknown Rx Tizanidine [Zanaflex] 4 mg PO Q8HR PRN #20 tab 05/04/19 Unknown Rx - History of Present Illness -Gen Adult Nature of Presenting Problems: 78 year old female presents to the ER with complaint of weakness that started this am as well as a 3 day history of productive cough, fever and chills. Pt has a history of COPD and is on oxygen at night. Denies any other pain or symptoms. Location of Pain/Injury: reports: chest Onset/Duration: reports: 3 days ago Timing: reports: still present Associated Symptoms: reports: cough (productive), fever/chills, weakness Review of Systems - Adult - REVIEW OF SYSTEMS - ADULT Constitutional: reports: chills, fever, fatique Eyes: reports: no symptoms reported Ears, Nose, Mouth & Throat: reports: no symptoms reported Cardiovascular: reports: no symptoms reported Respiratory: reports: cough, excessive sputum production. denies: shortness of breath, wheezing Gastrointestinal: reports: no symptoms reported Genitourinary: reports: no symptoms reported Musculoskeletal: reports: no symptoms reported Integumentary: reports: no symptoms reported Neurological: reports: no symptoms reported Psychiatric: reports: no symptoms reported Endocrine: reports: no symptoms reported Hematologic/Lymphatic: reports: no symptoms reported Allergic/Immunologic: reports: no symptoms reported All Other Systems: Reviewed and Negative Past History - Adult - PAST MEDICAL HISTORY-ADULT Review of Records: reports: Nursing Assessment Review, Medications Reviewed Major Childhood Illnesses: reports: denies history Cardiovascular: reports: other (carotid artery disease) Respiratory: reports: denies history Gastrointestinal: reports: denies history Obstetrical/Gynecological: reports: denies history Genitourinary: reports: denies history Musculoskeletal: reports: denies history Neurological: reports: denies history Endocrine/Immune: reports: denies history, other (polymyalgia rheumatica) Other Conditions: reports: denies history - PRIOR SURGERIES/PROCEDURES Surgical/Procedure History: reports: reviewed, not pertinent, other (left carotid endarterectomy) - IMMUNIZATION STATUS Childhood Immunizations: See Nurse Assessment Flu Vaccine: See Nurse Assessment - FAMILY HISTORY Family History: reviewed, not pertinent - SOCIAL HISTORY Smoking: denies Physical Exam-General - PHYSICAL EXAM-ADULT Initial Vital Signs Reviewed: Yes - CONSTITUTIONAL General Appearance: appears well, no apparent distress - EYES Eyes: PERRL/EOMI, pink conjunctivae - HEAD, EARS, NOSE, MOUTH & THROAT HENMT: normocephalic/atraumatic, moist mucous membranes, normal ENT inspection - NECK Neck: non-tender, normal inspection - RESPIRATORY Respiratory: decreased breath sounds (left lung) - CARDIOVASCULAR Cardiovascular: normal peripheral pulses, regular rate, rhythm - GASTROINTESTINAL (ABDOMEN) Abdominal Exam: soft - MUSCULOSKELETAL Back Exam: no CVA tenderness, no vertebral tenderness Extremity: normal range of motion, normal inspection - SKIN Integumentary: normal color, warm/dry - NEUROLOGIC Neurologic: grossly normal, no motor/sensory deficits - PSYCHIATRIC Psych/Mental Status: normal mood/affect, normal thought content, normal thought process, oriented x 3 Progress - PLAN OF CARE/RESULTS Progress/Plan/Lab Results: Vital Signs - 8 hr 06/05/19 08:48 06/05/19 09:01 06/05/19 09:02 Temperature 97.6 F Pulse Rate 76 75 74 Respiratory Rate 18 Blood Pressure 91/51 91/42 O2 Sat by Pulse Oximetry 91 L 92 L 06/05/19 09:10 06/05/19 09:20 06/05/19 09:34 Temperature Pulse Rate 70 74 77 Respiratory Rate Blood Pressure O2 Sat by Pulse Oximetry 91 L 90 L 92 L 06/05/19 09:40 06/05/19 09:48 06/05/19 09:50 Temperature Pulse Rate 73 78 73 Respiratory Rate Blood Pressure 104/39 O2 Sat by Pulse Oximetry 92 L 86 L 96 06/05/19 10:00 Temperature Pulse Rate 72 Respiratory Rate Blood Pressure O2 Sat by Pulse Oximetry 100 Laboratory Results - last 24 hr 06/05/19 06/05/19 06/05/19 08:54 09:12 09:12 WBC 17.79 H RBC 2.20 L Hgb 8.1 L Hct 25.7 L MCV 116.8 H MCH 36.8 H MCHC 31.5 L RDW Std Deviation 18.2 H Plt Count 348 MPV 9.9 Immature Gran % (Auto) 1.3 H Neut % (Auto) 79.8 H Lymph % (Auto) 9.8 L Clinton % (Auto) 8.5 Eos % (Auto) 0.4 Baso % (Auto) 0.2 Immature Gran # (Auto) 0.24 H Neut # (Auto) 14.18 H Lymph # (Auto) 1.75 Clinton # (Auto) 1.52 H Eos # (Auto) 0.07 Baso # (Auto) 0.03 PT INR PTT (Actin FS) Sodium 139 Potassium 5.2 H Chloride 104 Carbon Dioxide 25 Anion Gap 10 BUN 47 H Creatinine 1.7 H Estimated GFR/1.73 m2 29 BUN/Creatinine Ratio 28 Glucose 145 H POC Glucose 131 H Calculated Osmolality 292 Calcium 8.7 L Total Bilirubin 0.49 AST 15 ALT 14 Alkaline Phosphatase 62 Troponin T Total Protein 5.2 L Albumin 3.2 L Globulin 2.0 Albumin/Globulin Ratio 1.6 06/05/19 06/05/19 09:12 09:12 WBC RBC Hgb Hct MCV MCH MCHC RDW Std Deviation Plt Count MPV Immature Gran % (Auto) Neut % (Auto) Lymph % (Auto) Clinton % (Auto) Eos % (Auto) Baso % (Auto) Immature Gran # (Auto) Neut # (Auto) Lymph # (Auto) Clinton # (Auto) Eos # (Auto) Baso # (Auto) PT 14.6 INR 1.12 PTT (Actin FS) 33.4 Sodium Potassium Chloride Carbon Dioxide Anion Gap BUN Creatinine Estimated GFR/1.73 m2 BUN/Creatinine Ratio Glucose POC Glucose Calculated Osmolality Calcium Total Bilirubin AST ALT Alkaline Phosphatase Troponin T 0.039 Total Protein Albumin Globulin Albumin/Globulin Ratio Orders Category Date Time Status Cardiac Monitoring DIRECTED Care 06/05/19 09:00 Active Finger Stick Blood Sugar (ED) DIRECTED Care 06/05/19 09:00 Active Misc. NRSG Communication Order DIRECTED Care 06/05/19 09:00 Active Saline Loc NOW Care 06/05/19 09:00 Active CHEST-PORTABLE [RAD] Stat Exams 06/05/19 09:[address] HEAD W/O CONTRAST [CT] Stat Exams 06/05/19 08:55 Completed BC [BLOOD CULTURE] [BLDCUL] Stat Lab 06/05/19 09:48 Uncollected CBC WITH ELECTRONIC DIFF [HEME] Stat Lab 06/05/19 09:12 Completed COMPREHENSIVE METABOLIC PANEL [CHEM] Stat Lab 06/05/19 09:12 Completed LACTATE, PLASMA [CHEM] Stat Lab 06/05/19 09:48 Uncollected PROTIME WITH INR [COAG] Stat Lab 06/05/19 09:12 Completed PTT [COAG] Stat Lab 06/05/19 09:12 Completed TROPONIN T Stat Lab 06/05/19 09:12 Completed URINALYSIS W/POSS RFLX CULT [URINALYSIS] Stat Lab 06/05/19 09:00 Uncollected URINE DRUG SCREEN Stat Lab 06/05/19 09:00 Uncollected 0.9% Sodium Chloride Inj [Ns] 1,000 ml Med 06/05/19 09:00 Active IV 125 mls/hr EKG [EKG] Stat Ther 06/05/19 09:00 Ordered Result Diagrams: 06/05/19 09:12 06/05/19 09:12 - EKG 1 Time of EKG reading by physician:: 10:56 EKG Read and Signed by:: Abdelrahman Jiménez EKG Interpretation (*Must complete 3 of following elements*): Abnormal Rate: 73 Rhythm: normal sinus rhythm Comments: possible left atrial enlargement / borderline ECG - XRAY 1 XRAY Study: Chest Impression: Abnormal, See EMR Report ( EXAM: CHEST-PORTABLE 06/05/2019 HISTORY: stroke like symptoms TECHNIQUE: AP portable at 0930 COMMENT: There is alveolar opacity in the retrocardiac left lower lobe which is worse than on 05/02/2019. The left hemidiaphragm is completely obscured. IMPRESSION: Left lower lobe pneumonia.) XRAY Interpretation: per radiologist - CT/MRI 1 CT Study: Head Impression: Normal, See EMR Report (EXAM: CT HEAD W/O CONTRAST 06/05/2019 HISTORY: BLURRED VISION TECHNIQUE: This exam was performed using automated exposure control, adjustment of mA or kV according to patient size, and/or use of iterative reconstruction technique. COMMENT: There is no evidence of mass effect, bleed, or abnormal extra-axial fluid collection. There is no evidence of sellar or suprasellar mass. There is patchy lucency in the periventricular white matter particularly in the frontal lobes. There has been no significant change in the appearance of the brain since the previous study of 06/09/2018 performed at [facility]. The bilateral maxillary sinusitis which was present at the time the previous study has resolved. IMPRESSION: Chronic ischemic microvascular change. No evidence of acute intracranial disease.) CT Results: per radiologist - CONSULTS/PCP/HOSPITALIST Notification #1 *Consult/PCP/Hospitalist*: Dr. Pérez Time Discussed: 10:54 Reason/Comments: Admission due to pneumonia - Agreed Consult Disposition: Admit Departure - Departure Date of Disposition Decision: 06/05/19 Time of Disposition Decision: 10:55 DIAGNOSIS: Pneumonia Disposition: ADMITTED INPATIENT 09 Certified Medical Emergency: Emergent Condition: Stable Referrals and Follow-Ups: Alek Lopes MD [Primary Care Provider] - - Critical Care Note This patient required my direct & personal management of CC.: No Attestation - Physician/ ARLIN Attestation Patient care was provided by Advanced Practice Provider:: No The physician spent face to face time with patient:: Yes Advanced Practice Provider documentation review:: Supervising physician onsite and consulted in the evaluation and care of this patient. The physician did have a face to face encounter with the patient. This chart was documented by the indicated scribe, (Leisa Holman, Marlene) and accurately reflects the services I performed and decisions made by me, Abdelrahman Jiménez MD, as attested by the provider's signature.
[2019-06-05] MEDS ORDERED: LEVAQUIN 250 MG/D5W 250 MG/50 ML IVPB IV ONE (11:43)
[2019-06-05] MEDS ORDERED: BUSPAR PO PRN (12:30)
[2019-06-05] MEDS ORDERED: TYLENOL PO PRN (12:30)
[2019-06-05 12:33] LABS: URINE SOURCE CLEAN CATCH
[2019-06-05 12:35] LABS: BILIRUBIN URINE NEGATIVE (NEGATIVE); BLOOD URINE SMALL (NEGATIVE); COLOR YELLOW; GLUCOSE URINE NEGATIVE (NEGATIVE); KETONE URINE NEGATIVE (NEGATIVE); LEUKOCYTES URINE LARGE (NEGATIVE); NITRITE URINE NEGATIVE (NEGATIVE); PH URINE 5.5; PROTEIN URINE 50 mg/dL (NEGATIVE); SP GRAVITY URINE 1.014; TURBIDITY URINE TURBID (CLEAR); UROBILINOGEN URINE NORMAL (NORMAL)
[2019-06-05 12:36] LABS: UR EPITHELIAL CELLS <10 /HPF (<10); URINE BACTERIA 4+ /HPF; URINE RBC <10 /HPF (<10); URINE WBC TNTC /HPF (<10)
[2019-06-05 12:54] LABS: UR AMPHETAMINES QUAL NONE DETECTED (NONE DETECT); UR BARBITUATES QUAL NONE DETECTED (NONE DETECT); UR BENZODIAZEPIN QUAL NONE DETECTED (NONE DETECT); UR CANNABINOIDS QUAL NONE DETECTED (NONE DETECT); UR COCAINE QUAL NONE DETECTED (NONE DETECT); UR METHADONE QUAL NONE DETECTED (NONE DETECT); UR OPIATES QUAL NONE DETECTED (NONE DETECT); UR OXYCODONE QUAL PRESUMPTIVE POSITIVE (NONE DETECT); UR PCP QUAL NONE DETECTED (NONE DETECT)
[2019-06-05] MEDS: PREDNISONE PO SCH (13:11)
[2019-06-05] MEDS: NS 1,000 ML IV SCH (13:12)
[2019-06-05] MEDS: LOVENOX SUBQ SCH (13:12)
[2019-06-05] MEDS: LEVAQUIN 250 MG/D5W 250 MG/50 ML IVPB IV SCH (14:01)
[2019-06-05] MEDS: DUONEB (A & A) INH SCH ×2 (15:38→20:19)
[2019-06-05] MEDS: ADVAIR 250/50 DISKUS INH SCH (20:19)
[2019-06-05] MEDS: NORVASC PO SCH (21:44)
--- NOTE | 2019-06-05 21:48 | HISTORY AND PHYSICAL ---
CHIEF COMPLAINT: Cough and mild shortness of breath. HISTORY OF PRESENT ILLNESS: Ms. Elyse Tracy is a 78-year-old lady who is followed as an outpatient by Dr. Alek Lopes. She has numerous medical conditions including essential hypertension, mixed hyperlipidemia, essential thrombocytosis, chronic respiratory failure with hypoxia requiring nocturnal home oxygen, COPD, stage III chronic renal failure, PAD, type 2 non- insulin-dependent diabetes mellitus, and recurrent gout as well as combined variable immunoglobulin deficiency. She presented to the ER complaining of a 3-day history of low-grade fever, chills, cough productive of yellowish sputum, increasing shortness of breath, and pleuritic chest pain worse with deep inspiration and paroxysms of cough. She denied any nausea, vomiting, or diarrhea. Her chest x-ray demonstrated a left lower lobe infiltrate. PAST MEDICAL HISTORY: As above. PAST SURGICAL HISTORY: Laparoscopic cholecystectomy. BOSSMAN with BSO. ALLERGIES: Demerol, fenofibrate, Keflex, clonazepam. FAMILY HISTORY: Her father at the age of 66 of complications of prostate cancer and a pulmonary thromboembolism. Her mother of an acute SC at age 62. Her mother also had diabetes and hypertension. MEDICATIONS: DuoNeb nebulized q.6 hours. Amlodipine 5 mg b.i.d. Aspirin 81 mg daily. Tenormin 50 mg daily. Buspirone 5 mg q.8 hours p.r.n. Advair 250/50 one puff b.i.d. Prilosec 40 mg daily. Prednisone 10 mg alternating with 5 mg. Micardis 20 mg daily. Zanaflex 4 mg q.8 hours p.r.n. spasms. REVIEW OF SYSTEMS: She denies any recent weight gain or weight loss.HEENT: No loss of visual or auditory acuity. CV: No chest pain, palpitations, or anginal equivalents. Pulmonary: See HPI. GI: No reflux, dysphagia, melena, hematochezia, change in bowel habits, or rectal bleeding. Endocrine: No polyuria, no polydipsia. No cold or heat intolerance. Skin: No easy bruisability. : No leakage of urine with coughing or laughing. Neurologic: No migraines or seizures. PHYSICAL EXAMINATION: GENERAL: This is an acutely ill-appearing, 78-year-old lady in no apparent distress. VITAL SIGNS: Temperature 98 degrees, pulse 83, respirations 16, BP 120/57. HEENT: Fundi with arteriolar wall thickening. Pupils equal, round, and reactive to light. Extraocular eye movements intact. TMs without bullae. NECK: Supple. No masses, JVD or bruits. CV: Regular rate and rhythm. LUNGS: Diminished breath sounds in the left base with scattered end-expiratory wheezing with forced expiration. ABDOMEN: Soft, nontender, with active bowel sounds. No hepatosplenomegaly. No abdominal bruits. EXTREMITIES: Without edema. SKIN: No palpable purpura. 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 NEUROLOGIC: Nonfocal. LABORATORY STUDIES: Various laboratory studies were obtained. A CBC demonstrated a white count of 17.7, hemoglobin 8.1, hematocrit 25.7, MCV 116, and a platelet count of 348,000. There was a left shift. Electrolytes demonstrated the following: Sodium 139, potassium 5.2, chloride 104, CO2 of 25, BUN 47, creatinine 1.7, glucose 145, lactate was 0.8. ASSESSMENT AND PLAN: 1. Chronic respiratory failure with hypoxia on nocturnal home oxygen secondary to acute chronic obstructive pulmonary disease exacerbation with a community-acquired pneumonia. I also believe that she initially meets the initial criteria for sepsis. She has a leukocytosis with a left shift. She had an elevated pulse. She has a confirmed left lower lobe pneumonia. She is an immunocompromised host with a history of combined variable immunoglobulin deficiency and chronic steroid use. I am going to admit her to [facility]. I will continue Advair 250/50 one puff b.i.d., begin DuoNeb nebulizer treatments q.4 hours, and treat her with Levaquin 250 mg IV q. 48 hours dosed for her chronic renal insufficiency. She is allergic to penicillin, and therefore medicines such as Primaxin and Zosyn are contraindicated. 2. Hypertension. Blood pressure is stable. We will continue her current regimen of medications. 3. Type 2 noninsulin-dependent diabetes mellitus. We will continue her on pattern sugars, 1800 calorie ADA diet. Humulin R sliding scale and Januvia 100 mg daily. Given her comorbid conditions and clinical presentation, I believe that admission to the hospital is both reasonable and necessary. I anticipate that she will be in the hospital for at least 2 midnights and I will therefore place her in inpatient status. We will begin Lovenox 30 mg subcutaneously daily dosed for renal dysfunction for DVT prophylaxis. cc: Leo Pérez MD MTDD
[2019-06-05] MEDS: HUMULIN R SUBQ SCH (22:00)
[2019-06-06] MEDS: DUONEB (A & A) INH SCH ×7 (00:15→22:53)
[2019-06-06] MEDS: NS 1,000 ML IV SCH ×2 (03:57→17:06)
[2019-06-06] MEDS: PRILOSEC PO SCH (06:39)
[2019-06-06] MEDS: ADVAIR 250/50 DISKUS INH SCH ×2 (07:32→19:33)
[2019-06-06] MEDS: HUMULIN R SUBQ SCH ×3 (07:45→21:26)
[2019-06-06] MEDS ORDERED: PREDNISONE PO SCH (09:00)
[2019-06-06] MEDS: NORVASC PO SCH ×2 (09:25→21:26)
[2019-06-06] MEDS: TENORMIN PO SCH (09:25)
[2019-06-06] MEDS: ASPIRIN PO SCH (09:25)
[2019-06-06] MEDS: JANUVIA PO SCH (09:25)
[2019-06-06] MEDS: MICARDIS PO SCH (09:26)
[2019-06-06] MEDS: LEVAQUIN 250 MG/D5W 250 MG/50 ML IVPB IV SCH (13:48)
[2019-06-06] MEDS: LOVENOX SUBQ SCH (13:48)
--- NOTE | 2019-06-06 20:58 | PROGRESS NOTE ---
DATE: 06/06/2019 SUBJECTIVE: The patient's chart was reviewed. In summary, patient was admitted yesterday with chronic respiratory failure with hypoxia secondary to community-acquired pneumonia. The patient was placed on levofloxacin therapy. Bronchodilators were continued. Overnight, patient states she did reasonably well. This morning, upon my arrival, patient noted improvement from her admission condition. Throughout the day, patient states she has shown further improvement. She has ambulated in her room. Her energy level is improving. She denies fevers, chills, nausea, vomiting, or chest discomfort. Cough continues to be productive of a purulent sputum. OBJECTIVE: T-max 98.6 degrees, heart rate 82 to 106, respirations 15 to 20, blood pressure 91 to 159 over 37 to 52.General: Chronically ill appearing, no acute distress. Cardiovascular: Regular rate and rhythm. No significant murmurs, rubs, or gallops. Pulmonary: Minimal crackles at bilateral bases. Adequate air movement. Abdomen: Soft, nontender, nondistended. Positive bowel sounds. Extremities: Moves all extremities well. No significant clubbing, cyanosis, or edema. Dermatologic: Evaluation reveals no evidence of rash. LABORATORY DATA: None. ASSESSMENT AND PLAN: 1. Chronic respiratory failure with hypoxia secondary to acute exacerbation of chronic obstructive pulmonary disease and community-acquired pneumonia-the patient has shown improvement since admission. We will continue levofloxacin therapy and bronchodilators. Her steroids have maintained at her home dosage. We will continue to hold anagrelide in the setting of levofloxacin therapy. We will recheck a platelet level tomorrow. 2. Essential thrombocytosis-patient has longstanding disease. She is treated with anagrelide therapy. As above, we will hold this while patient is on levofloxacin therapy. Depending on culture data, we will determine if alternative antibiotics are appropriate. 3. Urinary tract infection-patient's urine culture is growing a gram-negative dianne. We will continue levofloxacin therapy. We will follow up on culture data. 4. Hypertension-patient's blood pressure is reasonably controlled on her current regimen. 5. Type 2 diabetes-patient's blood sugars are reasonably controlled on her current regimen plus sliding scale insulin. 6. Polymyalgia rheumatica-symptoms are stable with prednisone therapy. 7. Disposition-at this point, patient continues to require fdc care in the hospital setting. We will plan discharge home once appropriate. cc: MD Leo Valencia MD
[2019-06-07] MEDS: DUONEB (A & A) INH SCH ×4 (04:19→15:50)
[2019-06-07 05:53] LABS: BASO# 0.03 X1000 (0.0-0.2); BASO% 0.2 % (0.0-0.8); HEMATOCRIT 26.1 % (37.0-47.0); HEMOGLOBIN 8.2 g/dL (12.0-16.0); IMM GRAN# 0.59 X1000 (0.0-0.04); IMM GRAN% 4.7 % (0.0-0.5); LYMPH# 1.08 X1000 (1.2-3.4); LYMPH% 8.7 % (20.5-51.1); MCH 36.8 PG (27-31); MCHC 31.4 g/dL (33-37); MONO# 1.17 X1000 (0.11-0.59); MONO% 9.4 % (1.7-9.3); MPV 10.2 FL (7.4-10.4); PLT 301 X1000 (130-400); RBC 2.23 XMIL (4.2-5.4); RDW 18.1 % (11.5-14.5); WBC 12.47 X1000 (4.8-10.8)
[2019-06-07 05:59] LABS: AGAP 11; ALB/GLOB RATIO 1.2; ALBUMIN 3.1 g/dL (3.5-5.0); ALKALINE PHOSPHATASE 71 U/L (32-104); BUN 24 mg/dL (8-22); CALCIUM 8.6 mg/dL (8.8-10.2); CHLORIDE 112 mmol/L (98-107); COSMO 294; CREATININE 1.3 mg/dL (0.5-0.9); ESTIMATED GFR 40; GLUCOSE 83 mg/dL (70-104); GOT 24 U/L (10-30); GPT 20 U/L (10-36); POTASSIUM 4.6 mmol/L (3.5-5.1); SODIUM 146 mmol/L (136-145); TCO2 23 mmol/L (25-35); TOTAL BILIRUBIN < 0.15 mg/dL (0.20-1.00); TOTAL PROTEIN 5.7 g/dL (6.3-8.3)
[2019-06-07] MEDS: NS 1,000 ML IV SCH (06:24)
[2019-06-07] MEDS: HUMULIN R SUBQ SCH ×3 (06:43→16:11)
[2019-06-07] MEDS: ADVAIR 250/50 DISKUS INH SCH (08:24)
[2019-06-07] MEDS: TENORMIN PO SCH (09:00)
[2019-06-07] MEDS: MICARDIS PO SCH (09:00)
[2019-06-07] MEDS: JANUVIA PO SCH (09:00)
[2019-06-07] MEDS: ASPIRIN PO SCH (09:00)
[2019-06-07] MEDS: NORVASC PO SCH (09:00)
[2019-06-07] MEDS: PRILOSEC PO SCH (10:30)
[2019-06-07] MEDS: PREDNISONE PO SCH (13:15)
[2019-06-07] MEDS: LEVAQUIN 250 MG/D5W 250 MG/50 ML IVPB IV SCH (13:15)
[2019-06-07] MEDS: LOVENOX SUBQ SCH (13:15)
[2019-06-07 15:32] VITALS: BP 138/43
--- NOTE | 2019-06-07 23:55 | DISCHARGE SUMMARY ---
ADMISSION DATE: 06/05/2019 DISCHARGE DATE: 06/07/2019 ADMISSION DIAGNOSIS: 1. Cough. 2. Shortness of breath. DISCHARGE DIAGNOSES: 1. Chronic respiratory failure with hypoxia secondary to acute exacerbation of chronic obstructive pulmonary disease and community-acquired pneumonia. 2. Urinary tract infection. 3. Essential thrombocytosis, present on arrival 4. Hypertension, present on arrival. 5. Type 2 diabetes, present on arrival. 6. Polymyalgia rheumatica, present on arrival. CONSULTATIONS: None. PROCEDURES: 1. CT scan of the head was performed on 06/05/2019 which revealed chronic ischemic microvascular change. No evidence of acute intracranial disease. 2. Chest x-ray was performed on 06/05/2019 which revealed left lower lobe pneumonia. HISTORY AND PHYSICAL EXAMINATION: See admit note. PHYSICAL EXAMINATION PRIOR TO DISCHARGE: Temperature 98.3 degrees, heart rate 92, respirations 18, blood pressure is 138/43. General: Chronically ill-appearing, no acute distress. Cardiovascular: Regular rate and rhythm. No significant murmurs, rubs, or gallops. Pulmonary: Minimal crackles at bilateral bases. Adequate air movement. Abdomen: Soft, nontender, nondistended. Positive bowel sounds. Extremities: Moves all extremities well. No significant clubbing, cyanosis, or edema. Dermatologic: Evaluation reveals no evidence of rash. LABORATORY DATA: White blood cell count 12.47, hemoglobin 8.2, hematocrit 26.1, platelet count 301,000. Sodium 146, potassium 4.6, chloride 112, bicarb 23, BUN 24, creatinine 1.3, glucose 83, calcium 8.6, total bilirubin less than 0.15, total protein 5.7, albumin 3.1, alkaline phosphatase 71, AST 24, ALT 20. HOSPITAL COURSE: The patient was admitted as per history and physical examination. Hospital course per condition is as follows. 1. Chronic respiratory failure with hypoxia secondary to acute exacerbation of chronic obstructive pulmonary disease and community-acquired pneumonia-upon admission, patient was noted to have cough, congestion, shortness of breath and wheezing. Chest x-ray confirmed an underlying pneumonia. Patient was started on levofloxacin therapy. Bronchodilators and steroids were continued. Patient's condition rapidly improved. Sputum culture returned with mixed radha. The patient will be discharged home with 7 additional days of Augmentin therapy. We will continue current dose of prednisone and DuoNeb. We will follow patient closely as an outpatient. 2. Urinary tract infection-urine culture ultimately grew Klebsiella pneumoniae. This is sensitive to Augmentin therapy. We will follow this as an outpatient as well. 3. Essential thrombocytosis-while hospitalized, anagrelide was held while patient was treated with levofloxacin therapy. As urine culture returned with Klebsiella and sputum culture returned with mixed radha, we will resume Augmentin therapy and transition patient from levofloxacin to Augmentin therapy. We will continue her current treatment per Dr. Ortiz. 4. Hypertension-patient's blood pressure remained reasonably controlled on her home regimen. 5. Type 2 diabetes-patient's blood sugars remained sugars remained reasonably controlled on her home regimen. 6. Polymyalgia rheumatica-the patient is currently being treated with prednisone therapy. Her rheumatologic pain is reasonably controlled. DISCHARGE CONDITION: Good. DISPOSITION: Discharge to home. MEDICATIONS: 1. Acetaminophen 650 mg as needed. 2. Amlodipine 5 mg twice daily. 3. Augmentin 875/125 twice daily for 7 days. 4. Anagrelide 1.5 mg daily. 5. Aspirin 81 mg daily. 6. Atenolol 50 mg daily. 7. Buspirone 5 mg every 8 hours as needed. 8. Flexeril 10 mg 1/2 to 1 tablet 3 times daily as needed. 9. Advair 250/50 one puff twice daily. 10. DuoNeb 4 times daily. 11. Omeprazole 40 mg daily. 12. Prednisone 5 mg alternating with 10 mg daily. 13. Telmisartan 20 mg daily. FOLLOWUP: The patient is to follow up with me in approximately 1 to 2 weeks. cc: MD Leo Valencia MD
== END 2019-06-07 16:52 | disposition home or self-care (01) | DRG 194 ==
LOC: ED 08:40 → 4N 12:23
PROVIDERS: ADMIT Internal Medicine; ATTEND Internal Medicine